=== PATIENT | male | born 1970 | race Caucasian/White ===

== ENCOUNTER 2019-10-21 13:00 | Outpatient (RCR) | payer MEDICAID, SELFPAY ==
[2019-10-07] MEDS: Normal Saline Flush 10 ML SYR IVP (10:38)
[2019-10-07 10:44] LABS: Abs Immature Grans 0.01 k/cumm (0.0-0.09); Absolute Basophil Count 0.03 k/cumm (0.0-0.2); Absolute Eosinophil Count 0.15 k/cumm (0.0-0.7); Absolute Lymphocyte Count 1.41 k/cumm (1.2-3.4); Absolute Monocyte Count 0.54 k/cumm (0.11-0.7); Absolute Neutrophil Count 3.28 k/cumm (1.2-6.7); Basophils % 0.6; Eosinophils % 2.8; HCT 40.5 % (40.0-50.0); HGB 13.5 g/dL (13.5-17.5); Immature Grans % 0.2 %; Mean Corp. HGB Concentration 33.3 g/dL (32.0-36.0); Mean Corpuscular Hemoglobin 29.4 pg (27.0-33.0); Mean Corpuscular Volume 88.2 fL (80-95); Mean Platelet Volume 8.6 fL (8.0-11.0); Neutrophils % 60.4; Platelet Count 177 x1000/uL (130-400); RBC 4.59 m/cumm (4.50-6.00); RBC Distribution Width 14.6 % (11.8-14.1); White Blood Cell Count 5.42 k/cumm (4.4-10.8)
[2019-10-07 10:56] LABS: ALT 38 U/L (16-63); AST 21 U/L (15-37); Albumin 3.6 g/dL (3.4-5.0); Alkaline Phosphatase 81 U/L (46-116); Anion Gap 5.9 mmol/L (3-11); BUN 14 mg/dL (7-18); Bilirubin, Total 0.6 mg/dL (0.2-1.0); CO2 33.1 mmol/L (21.0-32.0); CREATININE 0.78 mg/dL (0.70-1.30); Calcium 9.3 mg/dL (8.5-10.1); Chloride 103 mmol/L (98-107); Glucose 192 mg/dL (74-106); Sodium 142 mmol/L (136-145); Total Protein 6.7 g/dL (6.4-8.2)
[2019-10-21] MEDS: Heparin 500 UNITS/5 ML SYRINGE IV (13:40)
[2019-10-21] MEDS: Normal Saline Flush 10 ML SYR IVP (13:40)
[2019-10-21 13:57] LABS: Abs Immature Grans 0.01 k/cumm (0.0-0.09); Absolute Basophil Count 0.01 k/cumm (0.0-0.2); Absolute Eosinophil Count 0.15 k/cumm (0.0-0.7); Absolute Lymphocyte Count 1.53 k/cumm (1.2-3.4); Absolute Monocyte Count 0.35 k/cumm (0.11-0.7); Basophils % 0.2; Eosinophils % 2.9; HCT 38.9 % (40.0-50.0); HGB 13.1 g/dL (13.5-17.5); Immature Grans % 0.2 %; Lymphocytes % 29.7; Mean Corp. HGB Concentration 33.7 g/dL (32.0-36.0); Mean Corpuscular Hemoglobin 29.7 pg (27.0-33.0); Mean Corpuscular Volume 88.2 fL (80-95); Mean Platelet Volume 8.8 fL (8.0-11.0); Monocytes % 6.8; Neutrophils % 60.2; Platelet Count 202 x1000/uL (130-400); RBC 4.41 m/cumm (4.50-6.00); RBC Distribution Width 14.2 % (11.8-14.1); White Blood Cell Count 5.15 k/cumm (4.4-10.8)
[2019-10-21 14:08] LABS: ALT 45 U/L (16-63); AST 20 U/L (15-37); Albumin 3.6 g/dL (3.4-5.0); Alkaline Phosphatase 82 U/L (46-116); Anion Gap 8.1 mmol/L (3-11); BUN 12 mg/dL (7-18); Bilirubin, Total 0.5 mg/dL (0.2-1.0); CO2 30.9 mmol/L (21.0-32.0); CREATININE 0.81 mg/dL (0.70-1.30); Chloride 102 mmol/L (98-107); Glucose 265 mg/dL (74-106); Potassium 3.7 mmol/L (3.5-5.1); Sodium 141 mmol/L (136-145); Total Protein 6.6 g/dL (6.4-8.2)
[2019-10-24 10:39] LABS: CA 19-9 4 U/mL (<35)
== END 2019-10-21 23:59 | disposition home or self-care (01) ==
LOC: INF 13:00
PROVIDERS: PCP Family Medicine; Visit Provider Internal Medicine Hematology & Oncology
DX: C25.0 Malignant neoplasm of head of pancreas (principal); Z45.2 Encounter for adjustment and management of vascular access device
CPT/HCPCS: 36591; 80053; 85025; 86301

== ENCOUNTER 2019-11-07 01:37 | Outpatient (CLI) | payer MEDICAID, SELFPAY ==
--- NOTE | 2019-11-07 | DI.CT_ITS ---
EXAM: CT CHEST/ABD/PEL W CLINICAL HISTORY: PANCREATIC CA, C25.0. TECHNIQUE: Imaging Protocol: Axial computed tomography images with coronal and sagittal reformatted images were created and reviewed CONTRAST MATERIAL: Intravenous: Omnipaque 350 Contrast volume:100 mL Oral: Yes COMPARISON: CT CHEST WITH CONTRAST from 07/21/2019 FINDINGS: CHEST: Thyroid: Visualized portion unremarkable. Tracheobronchial tree: Patent where visualized. Mediastinum and Sulema: No dominant adenopathy or fluid collection. Pulmonary parenchyma: No consolidation or dominant measurable mass. No architectural distortion. Pleura: No effusion or pneumothorax. Lymph nodes: Within normal limits. Aorta: Thoracic portion non-dilated. Mild atherosclerosis. Heart: No cardiomegaly. Mild coronary artery calcification. No significant pericardial effusion. Bones: Mild degenerative changes. ABDOMEN: Liver: Normal density. No measurable mass. Gallbladder and biliary tract: No radiodense calculus or dilation. Pancreas: There is ill-defined decreased attenuation seen in the mid body of the pancreas and a mass cannot be excluded. There is atrophy of the distal body and tail of the pancreas. Spleen: Normal. Kidneys: Normal size, contour and axis. No radiodense stones or obstructive uropathy. There are tiny hypodensities seen within the kidneys bilaterally. They are too small for further characterization b ut likely reflect small cysts. Adrenal glands: No masses seen. Aorta: Abdominal portion non-dilated. Mild atherosclerosis. Lymph nodes: Within normal limits. PELVIS: Bladder: Symmetric distention, no gross wall thickening. Bowel: No obstruction or bowel wall thickening. No evidence of an acute appendicitis. Peritoneal cavity: Trace amount of pelvic ascites. Bones: Within normal limits. Reproductive organs: Within normal limits. IMPRESSION: 1. Ill-defined area of decreased attenuation in the mid body of the pancreas. Mass cannot be exclude d. Atrophy of the distal body and tail of the pancreas. 2. No evidence of metastatic disease. 3. No evidence of thoracic metastatic disease. DATA REPOSITORY: All CT scans at this facility are submitted to the National Radiology Data Registry (NRDR) Dose Index Registry (DIR) with the [employer] (ACR). RADIATION OPTIMIZATION: All CT scans at this facility use at least one of these dose optimization te chniques: automated exposure control; mA and/or kV adjustment per patient size (includes targeted exa ms where dose is matched to clinical indication); or iterative reconstruction.
[2019-11-07] MEDS: Omnipaque 350 MG/ML 50 ML BTL IJ (08:11)
[2019-11-07] MEDS: Omnipaque 350 MG/ML 100 ML BTL IV (09:34)
[2019-11-07] MEDS: Normal Saline Flush 10 ML SYR IVP (09:34)
[2019-11-07] MEDS: Breeza Beverage 473 ML BTL PO (09:48)
== END 2019-11-07 01:57 ==
PROVIDERS: PCP Family Medicine; Visit Provider Internal Medicine Hematology & Oncology
DX: C25.0 Malignant neoplasm of head of pancreas (principal); N28.1 Cyst of kidney, acquired; R18.8 Other ascites
CPT/HCPCS: 74177; 71260; J3490; Q9967

== ENCOUNTER 2019-11-10 10:26 | Emergency (ER) | payer MEDICAID, SELFPAY ==
[2019-11-10] VITALS (9 sets, daily range): BP systolic 112–134; BP diastolic 70–82; PULSE 71–87; RESP 12–20; TEMP 36.5–36.6; O2SAT 93–94
--- NOTE | 2019-11-10 10:45 | DI.CT_ITS ---
EXAM: CT CHEST PE CTA CLINICAL HISTORY: pancreatitic cancer, chest pain. TECHNIQUE: Imaging Protocol: Axial CT angiography was performed with multi-slice acquisition and mu lti-planar and/or 3D reconstructions. PE protocol. CONTRAST MATERIAL: Intravenous: Omnipaque 350 Contrast volume:69 milliliters COMPARISON: CT CHEST/ABD/PEL W from 11/07/2019 FINDINGS: Pulmonary Arteries: No evidence of filling defect to suggest pulmonary emboli. Tracheobronchial tree: Patent where visualized. Mediastinum and Sulema: No dominant adenopathy or fluid collection. Pulmonary parenchyma: No consolidation or measurable mass. Pleura: No effusion or pneumothorax. Heart: The heart is not dilated. No coronary artery calcifications are seen. Aorta: Thoracic aorta non-dilated. No dissection. Upper abdomen: Unremarkable. Bones: Normal. Tubes, Catheters, and Lines: A port is seen over the right upper chest. IMPRESSION: No evidence of pulmonary embolism or other acute abnormality.. DATA REPOSITORY: All CT scans at this facility are submitted to the National Radiology Data Registry (NRDR) Dose Index Registry (DIR) with the [employer] (ACR). RADIATION OPTIMIZATION: All CT scans at this facility use at least one of these dose optimization te chniques: automated exposure control; mA and/or kV adjustment per patient size (includes targeted exa ms where dose is matched to clinical indication); or iterative reconstruction.
--- NOTE | 2019-11-10 10:49 | ED.GENADUL_ITS ---
Discharge Plan Disposition Patient Disposition: HOME Condition: Stable Discharge Details Chief Complaint: Chest Pain Clinical Impression: Chest pain Primary Care Provider: Fabrizio Jessica ED Provider: Geo Benavides Home Meds and New Rx's Prescriptions: Continued (DME) ReliOn Prime Test Strips Strip See Rx Instructions .ROUTE .MEDSUPPLY Qty: 100 RF: 12 (DME) lancets [ReliOn Ultra Thin Plus Lancets] Misc See Rx Instructions .ROUTE .MEDSUPPLY Qty: 200 RF: 12 cholecalciferol (vitamin D3) 1,000 unit capsule 1,000 unit PO DAILY RF: 0 trazodone 100 mg tablet 100 mg PO DAILY PRNRF: 0 metformin 500 mg tablet extended release 24hr 1,000 mg PO DAILY RF: 0 prochlorperazine maleate [Compazine] 10 mg tablet 10 mg PO BID PRN (Reason: nausea and vomiting) Qty: 90 RF: 0 lisinopril-hydrochlorothiazide 20-25 mg tablet 1 tab PO DAILY Qty: 90 RF: 3 atorvastatin 40 mg tablet 40 mg PO DAILY Qty: 90 RF: 3 dapagliflozin 10 mg tablet 10 mg PO DAILY Qty: 90 RF: 3 Lantus Solostar U-100 Insulin 100 unit/mL (3 mL) insulin pen 25 unit SC BID Qty: 15 RF: 3 (DME) pen needle, diabetic [Lite Touch Insulin Pen [place]] 31 gauge x 3/16 needle See Rx Instructions .ROUTE .MEDSUPPLY Qty: 100 RF: 12 acetaminophen 325 mg Tablet 650 mg PO QID RF: 0 atenolol 25 mg Tablet 25 mg PO DAILY RF: 0 Novolin R Regular U-100 Insuln 100 unit/mL Solution 1 sliding scale dose SUBCUT USEASDIRECTD RF: 0 Culturelle 10 billion cell Capsule 1 cap PO DAILY RF: 0 insulin lispro 100 unit/mL Insulin Pen 1 unit SUBCUT DIRECTED RF: 0 Men Under 50 Multivitamin 8 mg iron- 200 mcg-600 mcg Tablet 1 tab PO DAILY RF: 0 turmeric-turmeric ext-pepper 500-3 mg Capsule 500 mg PO DAILY RF: 0 Discharge Instructions Instructions: Chest Pain (ED) Additional Instructions: follow up with your primary care provider within 1 week if you have worsening pain, difficulty breathing or fevers return to the [facility] for reevaluation Medical Decision Making 49 yo male with hx of DM, hld, pancreatic cancer who gets chemotherapy infusions comes in with chest pain. He states he has been having episodes of chest burning after infusions the past 2-3 times, this past Thursday night had some chest burning and had an episode last night lasting 20minutes. Denies radaition, vomit, fevers, shortness of breath and has not had pain since last night. He denies any prior cardiac history. He is hd stable, no murmurs, no jvd, no pitting edema of legs.Heart score is 2, will send troponin. Will obtain CTA to eval for PE given wells is moderate. No tearing back pain so doubt dissection imaging unremarkable, labs show lactate of 2.6 likely from dehydration as he states he hasn't been drinking fluids well and no infectious symptoms. Mild elevation in lfts which could be related to his underlying cancer just like his lipase. Will d/c given no pain here and have him f/u with pcp within a week, return precautions given Differential Diagnosis Differential Diagnosis: indigestion, nstemi, pe Imaging Data Radiologic Study: Attestation: I personally reviewed and interpreted this imaging study as follows: Imaging: CT Scan Radiologist's impression: no acute findings Lab Data Lab results reviewed: Yes I reviewed the patient's lab results. ECG Data Attestation: I personally reviewed and interpreted this ECG (s) as follows: Prior ECG tracings: not available for review Interpretation: sinus rhythm, rate of 88, pr 126, qtc 435, no acute st t wave i schemic findings HPI General Mode of arrival: EMS . Date/Time Provider Initiated Documentation: 11/10/19 10:38 . Limitations to Documentation: no limitations . Information obtained by: patient . History of Present Illness 49 year old M presents to the emergency department with the chief complaint of chest pain, described as mild, Quality is described as stabbing, and is localized to the chest. Patient reports no radiation. Patient started experiencing this day(s) (3) and it has been now resolved. No relieving factors improve symptom(s), No exacerbating factors reported . Patient notes no other symptoms.. Patient did receive the following treatments prior to arrival, none Related Data Home Medications Medication Instructions Recorded Confirmed cholecalciferol (vitamin D3) 25 1,000 unit PO DAILY 08/10/19 11/10/19 mcg (1,000 unit) capsule trazodone 100 mg tablet 100 mg PO DAILY PRN 08/10/19 11/10/19 blood sugar diagnostic #100 each 09/09/19 09/09/19 lancets #200 each 09/09/19 09/09/19 metformin 500 mg tablet,extended 1,000 mg PO DAILY tab 09/09/19 11/10/19 release 24hr atorvastatin 40 mg tablet 40 mg PO DAILY #90 tab 10/07/19 11/10/19 lisinopril 20 1 tab PO DAILY #90 tab 10/07/19 11/10/19 mg-hydrochlorothiazide 25 mg tablet prochlorperazine maleate 10 mg 10 mg PO BID PRN #90 tab 10/07/19 11/10/19 tablet Culturelle 1 cap PO DAILY 11/10/19 11/10/19 Men Under 50 Multivitamin 1 tab PO DAILY 11/10/19 11/10/19 Novolin R Regular U-100 Insuln 1 sliding scale dose SUBCUT 11/10/19 11/10/19 USEASDIRECTD acetaminophen 650 mg PO QID 11/10/19 11/10/19 atenolol 25 mg PO DAILY 11/10/19 11/10/19 dapagliflozin 10 mg tablet 10 mg PO DAILY #90 tab 11/10/19 11/10/19 insulin glargine 100 unit/mL (3 25 unit SC BID #15 ml 11/10/19 11/10/19 mL) subcutaneous pen insulin lispro 1 unit SUBCUT DIRECTED 11/10/19 11/10/19 pen needle, diabetic 31 gauge x #100 each 11/10/1912/04 turmeric-turmeric ext-pepper 500 mg PO DAILY 11/10/19 11/10/19 Previous Rx's Medication Instructions Recorded blood sugar diagnostic #100 each 09/09/19 lancets #200 each 09/09/19 atorvastatin 40 mg tablet 40 mg PO DAILY #90 tab 10/07/19 lisinopril 20 1 tab PO DAILY #90 tab 10/07/19 mg-hydrochlorothiazide 25 mg tablet prochlorperazine maleate 10 mg 10 mg PO BID PRN #90 tab 10/07/19 tablet dapagliflozin 10 mg tablet 10 mg PO DAILY #90 tab 11/10/19 insulin glargine 100 unit/mL (3 25 unit SC BID #15 ml 11/10/19 mL) subcutaneous pen pen needle, diabetic 31 gauge x #100 each 11/10/1912/04 Allergies Allergy/AdvReac Type Severity Reaction Status Date / Time adhesive tape Allergy Verified 11/10/19 10:45 oxycodone [From Percocet] Allergy Verified 11/10/19 10:45 General Stated Complaint: Chest Pain SEBASTIEN: 2 Review of Systems All systems reviewed & are unremarkable except as noted in HPI and below Constitutional Constitutional: Denies chills, Denies fever(s) and Denies weakness ENT Ears, Nose, Mouth, and Throat: Denies change in voice Cardiovascular Cardiovascular: Denies dyspnea Respiratory Respiratory: Denies cough and Denies dyspnea Gastrointestinal Gastrointestinal: Denies abdominal pain, Denies nausea and Denies vomiting Genitourinary Genitourinary: Denies dysuria Musculoskeletal Musculoskeletal: Denies joint swelling Integumentary/Breasts Skin/Breast: Denies rash Neurologic Neurologic: Denies weakness Psychiatric Psychiatric: Denies depression [facility] Medical History (Updated 11/10/19 @ 11:53 by Geo Benavides MD) Anxiety (Chronic) Asthma (Chronic) Benign prostatic hyperplasia with lower urinary tract symptoms (Acute) Cannabis abuse (Acute) Diabetes (Chronic) Diabetes mellitus due to underlying condition, uncontrolled (Chronic) Type II, worsened with pancreatic cancer Diabetes mellitus type 2 in obese (Ruled-out) Dysthymic disorder (Acute) Fatigue (Acute) Hyperlipidemia (Acute) Hypertension (Chronic) Insomnia (Acute) Intermittent explosive disorder (Acute) Pancreatic cancer (Acute) PTSD (post-traumatic stress disorder) (Acute) Surgical History History of appendectomy (Chronic ~2013) History of tonsillectomy (Chronic ~1978) History of vasectomy (Acute) S/P AAA repair (Acute ~2016) S/P hernia repair (Acute ~1991) Family History (Updated 09/07/19 @ 16:32 by Ketty Cordova RN) Mother Breast cancer BRCA Hypertension Sister BRCA1 positive Paternal Grandfather Cancer Father Heart attack Hypertension Maternal Grandmother Diabetes Stroke Paternal Grandmother Cancer Colorectal Diabetes Social History (Updated 08/25/19 @ 15:10 by Christi Mares LPN) Smoking/Tobacco Use Status: Former Tobacco Use Quit Date: 04/21/15 Tobacco: How many years used: 30 Alcohol Intake: former Drug use: Occasionally Substance use type: marijuana Details: No IV Drug Use Adopted: No Caregiver/Support person: No Foster care: No Household members: spouse Housing: house Number of Children: 1 Communication Needs: None Do you need help understanding health information?: Never current occupation: Unemployed Sexually active: No Do you think of yourself as: straight/heterosexual Current gender identity: male What is your relationship status?: How often do you talk on the phone with friends or family?: three or more times per week Panel score (0-1 are the most socially isolated patients): 2 What type of physical activity do you participate in: none Seatbelt use: always Drive intox or ride w/intox school bus driver/custodian: No Working smoke detector in home: Yes Fire extinguisher in home: Yes Carbon monox detector in home: Yes Do you feel safe at home: Yes Do you feel safe in your relationship?: Yes Exam Const General: no acute distress Orientation: alert HENMT Head: normal to inspection Ears: external ears normal General nose exam: external nose normal Mouth: moist mucous membranes Eyes General: appearance normal, both eyes and all related structures Neck Neck: normal visual inspection Chest Chest: normal inspection of the chest Resp Effort & Inspection: normal respiratory effort and able to speak in complete sentences Cardio Rate: regular rate Skin General skin exam: no rashes or lesions noted Neuro General: alert and oriented x3 Extrem General: normal to inspection Psych Mental Status: mental status grossly normal Course Vital Signs Vital signs: Vital Signs Temperature 36.5 C 11/10/19 10:38 Pulse 86 11/10/19 10:38 Respiratory Rate 13 11/10/19 10:38 Blood Pressure 134/82 11/10/19 10:38 Pulse Oximetry 94 L 11/10/19 10:38 Temperature 36.5 C 11/10/19 10:38 Temperature Source Temporal Artery Scan 11/10/19 10:38 Pulse 86 11/10/19 10:38 Respiratory Rate 13 11/10/19 10:38 Respiratory Effort Non-Labored 11/10/19 10:44 Blood Pressure 134/82 11/10/19 10:38 Blood Pressure Position Sitting 11/10/19 10:38 Pulse Oximetry 94 L 11/10/19 10:38 Oxygen Delivery Method Room Air 11/10/19 10:38 Oxygen Flow Rate 0 11/10/19 10:38 Lab/Test Results Lab/Test Results: Laboratory Tests Range/Units 11/10/19 10:40 APTT Cancelled
[2019-11-10 10:50] LABS: Abs Immature Grans 0.01 k/cumm (0.0-0.09); Absolute Basophil Count 0.01 k/cumm (0.0-0.2); Absolute Eosinophil Count 0.02 k/cumm (0.0-0.7); Absolute Lymphocyte Count 0.76 k/cumm (1.2-3.4); Absolute Neutrophil Count 4.04 k/cumm (1.2-6.7); Basophils % 0.2; Eosinophils % 0.4; HCT 39.3 % (40.0-50.0); HGB 13.3 g/dL (13.5-17.5); Immature Grans % 0.2 %; Lymphocytes % 14.5; Mean Corp. HGB Concentration 33.8 g/dL (32.0-36.0); Mean Corpuscular Volume 88.7 fL (80-95); Mean Platelet Volume 8.8 fL (8.0-11.0); Monocytes % 7.6; Neutrophils % 77.1; Platelet Count 200 x1000/uL (130-400); RBC 4.43 m/cumm (4.50-6.00); RBC Distribution Width 14.2 % (11.8-14.1); White Blood Cell Count 5.24 k/cumm (4.4-10.8)
[2019-11-10 10:52] LABS: BE (Venous) 7.1 mmol/L (-3-3); HCO3 (Venous) 32 mmol/L (22-28); O2 Sat (Venous) 75 % (70-80); TCO2 (Venous) 29 mmol/L (22-29); pCO2 (Venous) 52 mm/Hg (34-47); pO2 (Venous) 41 mm/Hg (28-44)
[2019-11-10 11:05] LABS: Lactate 2.6 mmol/L (0.6-1.4)
[2019-11-10] MEDS: Omnipaque 350 MG/ML 100 ML BTL IJ (11:11)
[2019-11-10] MEDS: Normal Saline Flush 10 ML SYR IVP (11:12)
[2019-11-10] MEDS: Normal Saline - Diluent 50 ML VIAL IV (11:12)
[2019-11-10 11:19] LABS: PTT Activated 22.3 sec (21.0-31.4); Prothrombin Time 9.9 sec (9.3-11.0)
[2019-11-10 11:22] LABS: ALT 104 U/L (16-63); AST 63 U/L (15-37); Albumin 3.6 g/dL (3.4-5.0); Alkaline Phosphatase 79 U/L (46-116); Anion Gap 8.3 mmol/L (3-11); BUN 18 mg/dL (7-18); Bilirubin, Total 1.2 mg/dL (0.2-1.0); CO2 31.7 mmol/L (21.0-32.0); CREATININE 0.93 mg/dL (0.70-1.30); Calcium 8.8 mg/dL (8.5-10.1); Chloride 99 mmol/L (98-107); Glucose 326 mg/dL (74-106); Lipase 663 U/L (73-393); Potassium 3.9 mmol/L (3.5-5.1); Sodium 139 mmol/L (136-145); Total Protein 6.7 g/dL (6.4-8.2)
[2019-11-10 11:25] LABS: Troponin I < 0.05 ng/Ml (<0.06)
[2019-11-10] MEDS: Normal Saline 1,000 ML 1000 ML IV (11:33)
== END 2019-11-10 12:03 | disposition home or self-care (01) ==
PROVIDERS: Emergency Provider Emergency Medicine; PCP Family Medicine
DX: R07.89 Other chest pain (principal); E86.0 Dehydration; C25.9 Malignant neoplasm of pancreas, unspecified; Z79.899 Other long term (current) drug therapy; I10 Essential (primary) hypertension; E11.8 Type 2 diabetes mellitus with unspecified complications; Z79.4 Long term (current) use of insulin
CPT/HCPCS: 36416; 71275; 80053; 82805; 82962; 83690; 93005; 96360; 99285; 83605; 84484; 85025; 85610; 85730; 93010; 99284; J3490

== ENCOUNTER 2019-11-18 04:31 | Outpatient (RCR) | payer MEDICAID, SELFPAY ==
[2019-11-04 10:56] LABS: Abs Immature Grans 0.01 k/cumm (0.0-0.09); Absolute Basophil Count 0.01 k/cumm (0.0-0.2); Absolute Eosinophil Count 0.13 k/cumm (0.0-0.7); Absolute Lymphocyte Count 1.34 k/cumm (1.2-3.4); Absolute Monocyte Count 0.56 k/cumm (0.11-0.7); Absolute Neutrophil Count 3.32 k/cumm (1.2-6.7); Basophils % 0.2; Eosinophils % 2.4; HCT 38.9 % (40.0-50.0); HGB 13.3 g/dL (13.5-17.5); Immature Grans % 0.2 %; Mean Corp. HGB Concentration 34.2 g/dL (32.0-36.0); Mean Corpuscular Hemoglobin 29.8 pg (27.0-33.0); Mean Corpuscular Volume 87.2 fL (80-95); Mean Platelet Volume 8.9 fL (8.0-11.0); Monocytes % 10.4; Neutrophils % 61.8; Platelet Count 229 x1000/uL (130-400); RBC 4.46 m/cumm (4.50-6.00); White Blood Cell Count 5.37 k/cumm (4.4-10.8)
[2019-11-04 11:06] LABS: ALT 38 U/L (16-63); AST 22 U/L (15-37); Albumin 3.6 g/dL (3.4-5.0); Alkaline Phosphatase 86 U/L (46-116); Anion Gap 7.3 mmol/L (3-11); BUN 11 mg/dL (7-18); Bilirubin, Total 0.4 mg/dL (0.2-1.0); CO2 29.7 mmol/L (21.0-32.0); CREATININE 0.75 mg/dL (0.70-1.30); Calcium 9.2 mg/dL (8.5-10.1); Chloride 103 mmol/L (98-107); Glucose 210 mg/dL (74-106); Potassium 3.8 mmol/L (3.5-5.1); Sodium 140 mmol/L (136-145); Total Protein 6.8 g/dL (6.4-8.2)
[2019-11-04] MEDS: Normal Saline Flush 10 ML SYR IVP (12:40)
[2019-11-04] MEDS: Heparin 500 UNITS/5 ML SYRINGE IV (12:41)
[2019-11-07 11:49] LABS: CA 19-9 5 U/mL (<35)
[2019-11-18] MEDS: Heparin 500 UNITS/5 ML SYRINGE IV (08:38)
[2019-11-18] MEDS: Normal Saline Flush 10 ML SYR IVP (08:38)
[2019-11-18 08:44] LABS: Abs Immature Grans 0.02 k/cumm (0.0-0.09); Absolute Basophil Count 0.02 k/cumm (0.0-0.2); Absolute Eosinophil Count 0.14 k/cumm (0.0-0.7); Absolute Lymphocyte Count 1.65 k/cumm (1.2-3.4); Absolute Monocyte Count 0.58 k/cumm (0.11-0.7); Absolute Neutrophil Count 2.62 k/cumm (1.2-6.7); Basophils % 0.4; Eosinophils % 2.8; HCT 40.4 % (40.0-50.0); HGB 13.9 g/dL (13.5-17.5); Immature Grans % 0.4 %; Lymphocytes % 32.8; Mean Corp. HGB Concentration 34.4 g/dL (32.0-36.0); Mean Corpuscular Hemoglobin 30.2 pg (27.0-33.0); Mean Corpuscular Volume 87.6 fL (80-95); Mean Platelet Volume 8.8 fL (8.0-11.0); Monocytes % 11.5; Neutrophils % 52.1; Platelet Count 196 x1000/uL (130-400); RBC 4.61 m/cumm (4.50-6.00); White Blood Cell Count 5.03 k/cumm (4.4-10.8)
[2019-11-18 09:02] LABS: ALT 43 U/L (16-63); AST 21 U/L (15-37); Albumin 3.8 g/dL (3.4-5.0); Alkaline Phosphatase 96 U/L (46-116); Anion Gap 6.6 mmol/L (3-11); BUN 13 mg/dL (7-18); Bilirubin, Total 0.3 mg/dL (0.2-1.0); CO2 31.4 mmol/L (21.0-32.0); CREATININE 0.89 mg/dL (0.70-1.30); Calcium 9.1 mg/dL (8.5-10.1); Chloride 103 mmol/L (98-107); Glucose 206 mg/dL (74-106); Potassium 3.8 mmol/L (3.5-5.1); Sodium 141 mmol/L (136-145); Total Protein 7.2 g/dL (6.4-8.2)
[2019-11-21 11:48] LABS: CA 19-9 3 U/mL (<35)
== END 2019-11-19 23:59 | disposition home or self-care (01) ==
LOC: INF 04:31
PROVIDERS: PCP Family Medicine; Visit Provider Internal Medicine Hematology & Oncology
DX: C25.0 Malignant neoplasm of head of pancreas (principal); Z45.2 Encounter for adjustment and management of vascular access device
CPT/HCPCS: 36591; 80053; 85025; 86301

== ENCOUNTER 2019-12-19 08:00 | Outpatient (RCR) | payer MEDICAID, SELFPAY ==
[2019-12-02] MEDS: Heparin 500 UNITS/5 ML SYRINGE IV (15:07)
[2019-12-02] MEDS: Normal Saline Flush 10 ML SYR IVP (15:07)
[2019-12-02 15:11] LABS: Abs Immature Grans 0.02 k/cumm (0.0-0.09); Absolute Basophil Count 0.04 k/cumm (0.0-0.2); Absolute Eosinophil Count 0.23 k/cumm (0.0-0.7); Absolute Lymphocyte Count 2.35 k/cumm (1.2-3.4); Absolute Monocyte Count 0.77 k/cumm (0.11-0.7); Absolute Neutrophil Count 3.97 k/cumm (1.2-6.7); Basophils % 0.5; Eosinophils % 3.1; HCT 41.2 % (40.0-50.0); HGB 14.1 g/dL (13.5-17.5); Immature Grans % 0.3 %; Lymphocytes % 31.8; Mean Corp. HGB Concentration 34.2 g/dL (32.0-36.0); Mean Corpuscular Hemoglobin 30.7 pg (27.0-33.0); Mean Corpuscular Volume 89.6 fL (80-95); Mean Platelet Volume 8.8 fL (8.0-11.0); Monocytes % 10.4; Neutrophils % 53.9; Platelet Count 245 x1000/uL (130-400); RBC Distribution Width 14.1 % (11.8-14.1); White Blood Cell Count 7.38 k/cumm (4.4-10.8)
[2019-12-02 15:25] LABS: ALT 35 U/L (16-63); AST 19 U/L (15-37); Albumin 3.9 g/dL (3.4-5.0); Alkaline Phosphatase 89 U/L (46-116); Anion Gap 6.5 mmol/L (3-11); BUN 11 mg/dL (7-18); Bilirubin, Total 0.7 mg/dL (0.2-1.0); CO2 32.5 mmol/L (21.0-32.0); CREATININE 0.89 mg/dL (0.70-1.30); Calcium 9.2 mg/dL (8.5-10.1); Chloride 104 mmol/L (98-107); Glucose 159 mg/dL (74-106); Potassium 3.7 mmol/L (3.5-5.1); Sodium 143 mmol/L (136-145); Total Protein 7.3 g/dL (6.4-8.2)
[2019-12-05 09:15] LABS: CA 19-9 2 U/mL (<35)
[2019-12-19 08:46] LABS: Absolute Basophil Count 0.01 k/cumm (0.0-0.2); Absolute Eosinophil Count 0.18 k/cumm (0.0-0.7); Absolute Monocyte Count 0.48 k/cumm (0.11-0.7); Absolute Neutrophil Count 4.06 k/cumm (1.2-6.7); Basophils % 0.2; Eosinophils % 2.8; HCT 40.3 % (40.0-50.0); HGB 13.5 g/dL (13.5-17.5); Lymphocytes % 25.3; Mean Corp. HGB Concentration 33.5 g/dL (32.0-36.0); Mean Corpuscular Hemoglobin 30.2 pg (27.0-33.0); Mean Corpuscular Volume 90.2 fL (80-95); Mean Platelet Volume 8.8 fL (8.0-11.0); Monocytes % 7.6; Neutrophils % 64.1; Platelet Count 210 x1000/uL (130-400); RBC 4.47 m/cumm (4.50-6.00); RBC Distribution Width 13.4 % (11.8-14.1); White Blood Cell Count 6.33 k/cumm (4.4-10.8)
[2019-12-19] MEDS: Normal Saline Flush 10 ML SYR IVP (08:50)
[2019-12-19] MEDS: Heparin 500 UNITS/5 ML SYRINGE IV (08:51)
[2019-12-19 09:01] LABS: ALT 37 U/L (16-63); AST 21 U/L (15-37); Albumin 3.8 g/dL (3.4-5.0); Alkaline Phosphatase 99 U/L (46-116); Anion Gap 8.4 mmol/L (3-11); BUN 13 mg/dL (7-18); Bilirubin, Total 0.6 mg/dL (0.2-1.0); CO2 29.6 mmol/L (21.0-32.0); CREATININE 0.83 mg/dL (0.70-1.30); Calcium 8.9 mg/dL (8.5-10.1); Chloride 105 mmol/L (98-107); Glucose 168 mg/dL (74-106); Potassium 3.6 mmol/L (3.5-5.1); Sodium 143 mmol/L (136-145); Total Protein 7.1 g/dL (6.4-8.2)
== END 2019-12-20 23:59 | disposition home or self-care (01) ==
LOC: INF 08:00
PROVIDERS: PCP Family Medicine; Visit Provider Internal Medicine Hematology & Oncology
DX: C25.0 Malignant neoplasm of head of pancreas (principal); Z45.2 Encounter for adjustment and management of vascular access device
CPT/HCPCS: 36591; 80053; 85025; 86301

== ENCOUNTER 2020-01-16 09:30 | Outpatient (RCR) | payer MEDICAID, SELFPAY ==
[2020-01-06 09:12] LABS: Absolute Basophil Count 0.01 k/cumm (0.0-0.2); Absolute Lymphocyte Count 1.36 k/cumm (1.2-3.4); Absolute Monocyte Count 0.46 k/cumm (0.11-0.7); Absolute Neutrophil Count 1.73 k/cumm (1.2-6.7); Basophils % 0.3; Eosinophils % 2.7; HCT 40.4 % (40.0-50.0); HGB 13.3 g/dL (13.5-17.5); Lymphocytes % 37.2; Mean Corp. HGB Concentration 32.9 g/dL (32.0-36.0); Mean Corpuscular Hemoglobin 30.2 pg (27.0-33.0); Mean Corpuscular Volume 91.8 fL (80-95); Mean Platelet Volume 9.1 fL (8.0-11.0); Monocytes % 12.6; Neutrophils % 47.2; Platelet Count 208 x1000/uL (130-400); RBC Distribution Width 14.1 % (11.8-14.1); White Blood Cell Count 3.66 k/cumm (4.4-10.8)
[2020-01-06] MEDS: Normal Saline Flush 10 ML SYR IVP (09:27)
[2020-01-06] MEDS: Heparin 500 UNITS/5 ML SYRINGE IV (09:27)
[2020-01-06 09:28] LABS: ALT 42 U/L (16-63); AST 18 U/L (15-37); Albumin 3.8 g/dL (3.4-5.0); Alkaline Phosphatase 95 U/L (46-116); Anion Gap 7.6 mmol/L (3-11); BUN 12 mg/dL (7-18); Bilirubin, Total 0.6 mg/dL (0.2-1.0); CO2 30.4 mmol/L (21.0-32.0); CREATININE 0.85 mg/dL (0.70-1.30); Calcium 9.3 mg/dL (8.5-10.1); Chloride 102 mmol/L (98-107); Glucose 240 mg/dL (74-106); Sodium 140 mmol/L (136-145); Total Protein 7.2 g/dL (6.4-8.2)
[2020-01-09 11:03] LABS: CA 19-9 5 U/mL (<35)
[2020-01-16] MEDS: Heparin 500 UNITS/5 ML SYRINGE IV (09:25)
[2020-01-16] MEDS: Normal Saline Flush 10 ML SYR IVP (09:25)
[2020-01-16 09:45] LABS: Abs Immature Grans 0.02 k/cumm (0.0-0.09); Absolute Basophil Count 0.01 k/cumm (0.0-0.2); Absolute Eosinophil Count 0.14 k/cumm (0.0-0.7); Absolute Lymphocyte Count 1.63 k/cumm (1.2-3.4); Absolute Neutrophil Count 4.78 k/cumm (1.2-6.7); Basophils % 0.1; HCT 41.8 % (40.0-50.0); HGB 13.8 g/dL (13.5-17.5); Immature Grans % 0.3 %; Mean Corpuscular Hemoglobin 30.3 pg (27.0-33.0); Mean Corpuscular Volume 91.9 fL (80-95); Monocytes % 7.1; Neutrophils % 67.5; Platelet Count 230 x1000/uL (130-400); RBC 4.55 m/cumm (4.50-6.00); RBC Distribution Width 13.8 % (11.8-14.1); White Blood Cell Count 7.08 k/cumm (4.4-10.8)
[2020-01-16 10:02] LABS: ALT 34 U/L (16-63); AST 24 U/L (15-37); Albumin 3.9 g/dL (3.4-5.0); Alkaline Phosphatase 97 U/L (46-116); Anion Gap 8.6 mmol/L (3-11); BUN 13 mg/dL (7-18); Bilirubin, Total 0.9 mg/dL (0.2-1.0); CO2 31.4 mmol/L (21.0-32.0); CREATININE 0.81 mg/dL (0.70-1.30); Calcium 9.6 mg/dL (8.5-10.1); Chloride 99 mmol/L (98-107); Glucose 210 mg/dL (74-106); Potassium 3.8 mmol/L (3.5-5.1); Sodium 139 mmol/L (136-145); Total Protein 7.4 g/dL (6.4-8.2)
[2020-01-18 10:32] LABS: CA 19-9 7 U/mL (<35)
== END 2020-01-19 23:59 | disposition home or self-care (01) ==
LOC: INF 09:30
PROVIDERS: PCP Family Medicine; Visit Provider Internal Medicine Hematology & Oncology
DX: C25.0 Malignant neoplasm of head of pancreas (principal); Z45.2 Encounter for adjustment and management of vascular access device
CPT/HCPCS: 36591; 80053; 85025; 86301

== ENCOUNTER 2020-02-17 02:52 | Outpatient (RCR) | payer MEDICAID, SELFPAY ==
[2020-01-27 12:35] LABS: Abs Immature Grans 0.01 k/cumm (0.0-0.09); Absolute Basophil Count 0.01 k/cumm (0.0-0.2); Absolute Eosinophil Count 0.13 k/cumm (0.0-0.7); Absolute Lymphocyte Count 0.92 k/cumm (1.2-3.4); Absolute Monocyte Count 0.61 k/cumm (0.11-0.7); Basophils % 0.1; Eosinophils % 1.5; HCT 40.9 % (40.0-50.0); HGB 13.9 g/dL (13.5-17.5); Immature Grans % 0.1 %; Lymphocytes % 10.7; Mean Corpuscular Volume 91.1 fL (80-95); Mean Platelet Volume 8.6 fL (8.0-11.0); Monocytes % 7.1; Neutrophils % 80.5; Platelet Count 211 x1000/uL (130-400); RBC 4.49 m/cumm (4.50-6.00); RBC Distribution Width 13.4 % (11.8-14.1); White Blood Cell Count 8.58 k/cumm (4.4-10.8)
[2020-01-27] MEDS: Normal Saline Flush 10 ML SYR IVP (12:45)
[2020-01-27] MEDS: Heparin 500 UNITS/5 ML SYRINGE IV (12:46)
[2020-01-27 12:56] LABS: ALT 32 U/L (16-63); AST 20 U/L (15-37); Albumin 4.1 g/dL (3.4-5.0); Alkaline Phosphatase 86 U/L (46-116); Anion Gap 7.9 mmol/L (3-11); BUN 15 mg/dL (7-18); Bilirubin, Total 1.3 mg/dL (0.2-1.0); CO2 30.1 mmol/L (21.0-32.0); CREATININE 0.87 mg/dL (0.70-1.30); Calcium 9.7 mg/dL (8.5-10.1); Chloride 98 mmol/L (98-107); Glucose 215 mg/dL (74-106); Potassium 3.5 mmol/L (3.5-5.1); Sodium 136 mmol/L (136-145); Total Protein 7.5 g/dL (6.4-8.2)
[2020-02-03] MEDS: Heparin 500 UNITS/5 ML SYRINGE IV (12:30)
[2020-02-03] MEDS: Normal Saline Flush 10 ML SYR IVP (12:30)
[2020-02-03 12:51] LABS: Abs Immature Grans 0.01 k/cumm (0.0-0.09); Absolute Basophil Count 0.01 k/cumm (0.0-0.2); Absolute Eosinophil Count 0.15 k/cumm (0.0-0.7); Absolute Lymphocyte Count 0.73 k/cumm (1.2-3.4); Absolute Monocyte Count 0.58 k/cumm (0.11-0.7); Absolute Neutrophil Count 4.27 k/cumm (1.2-6.7); Basophils % 0.2; Eosinophils % 2.6; HCT 40.5 % (40.0-50.0); HGB 13.6 g/dL (13.5-17.5); Immature Grans % 0.2 %; Lymphocytes % 12.7; Mean Corp. HGB Concentration 33.6 g/dL (32.0-36.0); Mean Corpuscular Hemoglobin 30.4 pg (27.0-33.0); Mean Corpuscular Volume 90.6 fL (80-95); Mean Platelet Volume 9.2 fL (8.0-11.0); Monocytes % 10.1; Neutrophils % 74.2; Platelet Count 214 x1000/uL (130-400); RBC 4.47 m/cumm (4.50-6.00); RBC Distribution Width 13.8 % (11.8-14.1); White Blood Cell Count 5.75 k/cumm (4.4-10.8)
[2020-02-03 13:10] LABS: ALT 27 U/L (16-63); AST 15 U/L (15-37); Alkaline Phosphatase 85 U/L (46-116); Anion Gap 6.9 mmol/L (3-11); BUN 16 mg/dL (7-18); Bilirubin, Total 0.8 mg/dL (0.2-1.0); CO2 31.1 mmol/L (21.0-32.0); CREATININE 0.87 mg/dL (0.70-1.30); Calcium 9.6 mg/dL (8.5-10.1); Chloride 99 mmol/L (98-107); Glucose 213 mg/dL (74-106); Potassium 3.8 mmol/L (3.5-5.1); Sodium 137 mmol/L (136-145); Total Protein 7.5 g/dL (6.4-8.2)
[2020-02-06 11:10] LABS: CA 19-9 3 U/mL (<35)
[2020-02-10] MEDS: Normal Saline Flush 10 ML SYR IVP (10:45)
[2020-02-10] MEDS: Heparin 500 UNITS/5 ML SYRINGE IV (10:45)
[2020-02-10 11:02] LABS: Abs Immature Grans 0.01 k/cumm (0.0-0.09); Absolute Basophil Count 0.01 k/cumm (0.0-0.2); Absolute Eosinophil Count 0.11 k/cumm (0.0-0.7); Absolute Lymphocyte Count 0.48 k/cumm (1.2-3.4); Absolute Monocyte Count 0.55 k/cumm (0.11-0.7); Absolute Neutrophil Count 5.58 k/cumm (1.2-6.7); Basophils % 0.1; Eosinophils % 1.6; HCT 40.1 % (40.0-50.0); HGB 13.5 g/dL (13.5-17.5); Immature Grans % 0.1 %; Lymphocytes % 7.1; Mean Corp. HGB Concentration 33.7 g/dL (32.0-36.0); Mean Corpuscular Hemoglobin 30.6 pg (27.0-33.0); Mean Corpuscular Volume 90.9 fL (80-95); Mean Platelet Volume 8.7 fL (8.0-11.0); Monocytes % 8.2; Neutrophils % 82.9; Platelet Count 185 x1000/uL (130-400); RBC 4.41 m/cumm (4.50-6.00); RBC Distribution Width 14.3 % (11.8-14.1); White Blood Cell Count 6.74 k/cumm (4.4-10.8)
[2020-02-10 11:13] LABS: ALT 34 U/L (16-63); AST 18 U/L (15-37); Albumin 4.1 g/dL (3.4-5.0); Alkaline Phosphatase 85 U/L (46-116); Anion Gap 7.3 mmol/L (3-11); BUN 16 mg/dL (7-18); Bilirubin, Total 1.1 mg/dL (0.2-1.0); CO2 32.7 mmol/L (21.0-32.0); CREATININE 0.86 mg/dL (0.70-1.30); Calcium 9.6 mg/dL (8.5-10.1); Chloride 97 mmol/L (98-107); Glucose 220 mg/dL (74-106); Potassium 3.9 mmol/L (3.5-5.1); Sodium 137 mmol/L (136-145); Total Protein 7.5 g/dL (6.4-8.2)
[2020-02-13 12:04] LABS: CA 19-9 3 U/mL (<35)
[2020-02-17 11:01] LABS: Abs Immature Grans 0.02 k/cumm (0.0-0.09); Absolute Eosinophil Count 0.08 k/cumm (0.0-0.7); Absolute Lymphocyte Count 0.34 k/cumm (1.2-3.4); Eosinophils % 0.7; HCT 40.3 % (40.0-50.0); HGB 13.5 g/dL (13.5-17.5); Immature Grans % 0.2 %; Lymphocytes % 2.9; Mean Corp. HGB Concentration 33.5 g/dL (32.0-36.0); Mean Corpuscular Hemoglobin 30.9 pg (27.0-33.0); Mean Corpuscular Volume 92.2 fL (80-95); Monocytes % 7.6; Neutrophils % 88.6; Platelet Count 188 x1000/uL (130-400); RBC 4.37 m/cumm (4.50-6.00); RBC Distribution Width 14.7 % (11.8-14.1); White Blood Cell Count 11.78 k/cumm (4.4-10.8)
[2020-02-17 11:03] LABS: Absolute Neutrophil Count 10.44 k/cumm (1.2-6.7)
[2020-02-17 11:13] LABS: ALT 36 U/L (16-63); AST 19 U/L (15-37); Albumin 4.1 g/dL (3.4-5.0); Alkaline Phosphatase 87 U/L (46-116); Anion Gap 4.4 mmol/L (3-11); BUN 16 mg/dL (7-18); Bilirubin, Total 1.2 mg/dL (0.2-1.0); CO2 31.6 mmol/L (21.0-32.0); CREATININE 0.92 mg/dL (0.70-1.30); Calcium 9.6 mg/dL (8.5-10.1); Chloride 100 mmol/L (98-107); Glucose 243 mg/dL (74-106); Potassium 3.7 mmol/L (3.5-5.1); Sodium 136 mmol/L (136-145); Total Protein 7.4 g/dL (6.4-8.2)
[2020-02-17] MEDS: Normal Saline Flush 10 ML SYR IVP (11:27)
[2020-02-17] MEDS: Heparin 500 UNITS/5 ML SYRINGE IV (11:27)
[2020-02-20 10:52] LABS: CA 19-9 <2 U/mL (<35)
== END 2020-02-19 23:59 | disposition home or self-care (01) ==
LOC: INF 02:52
PROVIDERS: PCP Family Medicine; Visit Provider Internal Medicine Hematology & Oncology
DX: C25.0 Malignant neoplasm of head of pancreas (principal); Z45.2 Encounter for adjustment and management of vascular access device
CPT/HCPCS: 36591; 80053; 85025; 86301

== ENCOUNTER 2020-02-24 04:51 | Outpatient (RCR) | payer MEDICAID, SELFPAY ==
[2020-02-24] MEDS: Normal Saline Flush 10 ML SYR 30 ML IVP (12:13)
[2020-02-24 12:28] LABS: Abs Immature Grans 0.01 k/cumm (0.0-0.09); Absolute Basophil Count 0.01 k/cumm (0.0-0.2); Absolute Eosinophil Count 0.04 k/cumm (0.0-0.7); Absolute Lymphocyte Count 0.25 k/cumm (1.2-3.4); Absolute Monocyte Count 0.78 k/cumm (0.11-0.7); Absolute Neutrophil Count 7.62 k/cumm (1.2-6.7); Basophils % 0.1; Eosinophils % 0.5; HCT 41.8 % (40.0-50.0); HGB 14.3 g/dL (13.5-17.5); Immature Grans % 0.1 %; Lymphocytes % 2.9; Mean Corp. HGB Concentration 34.2 g/dL (32.0-36.0); Mean Corpuscular Hemoglobin 31.1 pg (27.0-33.0); Mean Corpuscular Volume 90.9 fL (80-95); Mean Platelet Volume 9.2 fL (8.0-11.0); Neutrophils % 87.4; Platelet Count 210 x1000/uL (130-400); RBC Distribution Width 14.6 % (11.8-14.1); White Blood Cell Count 8.71 k/cumm (4.4-10.8)
[2020-02-24 12:48] LABS: ALT 38 U/L (16-63); AST 21 U/L (15-37); Albumin 4.3 g/dL (3.4-5.0); Alkaline Phosphatase 90 U/L (46-116); Anion Gap 5.1 mmol/L (3-11); BUN 14 mg/dL (7-18); Bilirubin, Total 1.5 mg/dL (0.2-1.0); CO2 32.9 mmol/L (21.0-32.0); CREATININE 1.12 mg/dL (0.70-1.30); Calcium 9.8 mg/dL (8.5-10.1); Chloride 99 mmol/L (98-107); Glucose 278 mg/dL (74-106); Potassium 3.7 mmol/L (3.5-5.1); Sodium 137 mmol/L (136-145); Total Protein 7.7 g/dL (6.4-8.2)
[2020-02-27 12:32] LABS: CA 19-9 6 U/mL (<35)
== END 2020-03-20 23:59 | disposition home or self-care (01) ==
LOC: INF 04:51
PROVIDERS: PCP Family Medicine; Visit Provider Internal Medicine Hematology & Oncology
DX: C25.0 Malignant neoplasm of head of pancreas (principal); Z45.2 Encounter for adjustment and management of vascular access device
CPT/HCPCS: 36591; 80053; 85025; 86301

== ENCOUNTER 2020-05-14 20:33 | Outpatient (REF) | payer BC, SELFPAY ==
[2020-05-14 22:00] LABS: Bilirubin Negative (Negative); Blood Trace-intact (Negative); Clarity Clear (Clear); Glucose Negative (Negative); Ketones Negative (Negative); Leukocyte Esterase Negative (Negative); Nitrite Negative (Negative); Urobilinogen 0.2 EU/dL (Up TO 0.2)
[2020-05-14 22:37] LABS: Bacteria Negative HPF (Negative); C & S Indicated? No; Casts Negative LPF (Negative); Crystals Negative HPF (Negative); Epithelial Cells Negative HPF (Negative); Mucus Negative (Negative); Other Cells Negative (Negative); RBC 0-2 HPF (0-2); WBC 0-2 HPF (0-5)
== END 2020-05-14 20:53 ==
LOC: LBN 20:33
PROVIDERS: PCP Family Medicine; Visit Provider Family Medicine
DX: R10.9 Unspecified abdominal pain (principal); C25.1 Malignant neoplasm of body of pancreas; E11.9 Type 2 diabetes mellitus without complications
CPT/HCPCS: 81003; 81015

== ENCOUNTER 2020-08-24 04:29 | Outpatient (CLI) | payer BC, SELFPAY ==
--- NOTE | 2020-08-24 | DI.CT_ITS ---
EXAM: CT CHEST/ABD/PEL W CLINICAL HISTORY: PANCREATIC CA,C25.0,S/P CHEMO AND TREATMENT,SURGERY,SURVEILLANCE,RESTAGING. TECHNIQUE: Imaging Protocol: Axial computed tomography images with coronal and sagittal reformatted images were created and reviewed CONTRAST MATERIAL: Intravenous: Omnipaque 350 Contrast volume:100 Oral: yes COMPARISON: CT CT CHEST PE CTA from 11/10/[address] CHEST ABDOMEN PELVIS W CONTRAST (GENERIC) from 03/27/2020 FINDINGS: CHEST: Thyroid: Normal Tracheobronchial tree: Patent where visualized. Mediastinum and Sulema: No dominant adenopathy or fluid collection. Pulmonary parenchyma: No consolidation or dominant measurable mass. Pleura: No effusion or pneumothorax. Lymph nodes: Within normal limits. Aorta: Thoracic portion non-dilated. Pulmonary arteries: Well opacified with contrast. No emboli. Heart: Normal in size. Mild coronary artery calcifications. Bones: Right chest port with tip in SVC. ABDOMEN: Liver: Normal density. 10 millimeter low-density lesion anteriorly in the left lobe of the liver and 2.1 by 0.8 centimeter lesion inferomedial right lobe. Both lesions were not present on the previous exam. There are multiple surgical clips seen at the level of the celiac axis as well as near the pancreatic head and body. Gallbladder and biliary tract: Status post cholecystectomy since the previous exam. Pancreas: A 15 millimeter cystic appearing lesion is seen emanating from the superior portion of the pancreatic head which is not seen previously. The previously noted mass is no longer present. The body and tail of the pancreas has been resected. Spleen: Status post splenectomy. Kidneys: Normal size, contour and axis. No radiodense stones or obstructive uropathy. No masses seen. Tiny cysts. Scarring at the lower pole of the left kidney. Adrenal glands: No masses seen. Aorta: Abdominal portion non-dilated. Atherosclerotic changes of the aorta and iliac arteries. Lymph nodes: Within normal limits. Soft tissues: Upper anterior abdominal wall surgical scar. No hematoma or seroma. PELVIS: Bladder: Symmetric distention, mild wall thickening. Bowel: No obstruction or bowel wall thickening. Status post appendectomy. Peritoneal cavity: No ascites, collection or mesenteric inflammatory response. Bones: No lytic or blastic lesions. Degenerative changes of the hips and lower lumbar spine. Reproductive organs: Within normal limits. IMPRESSION: 1. Status post partial pancreatic resection. A 15 millimeter cystic area superior to the head of th e pancreas could be postsurgical. Patient is also status post cholecystectomy and splenectomy. 2. Two new low-density lesions are seen in the liver, suspicious for metastases. 3. There is no evidence of metastatic disease in the chest. RADIATION DOSE DELIVERED: 1,877.02mGy.cm Total DLP DATA REPOSITORY: All CT scans at this facility are submitted to the National Radiology Data Registry (NRDR) Dose Index Registry (DIR) with the [employer] (ACR). RADIATION OPTIMIZATION: All CT scans at this facility use at least one of these dose optimization te chniques: automated exposure control; mA and/or kV adjustment per patient size (includes targeted exa ms where dose is matched to clinical indication); or iterative reconstruction.
[2020-08-24 10:09] LABS: Abs Immature Grans 0.02 10^3/uL (0.0-0.06); Absolute Basophil Count 0.05 10^3/uL (0.0-0.2); Absolute Eosinophil Count 0.35 10^3/uL (0.0-0.7); Absolute Lymphocyte Count 1.23 10^3/uL (1.2-3.4); Absolute Monocyte Count 0.96 10^3/uL (0.1-0.8); Absolute Neutrophil Count 8.15 10^3/uL (1.2-6.7); Basophils % 0.5; Eosinophils % 3.3; HCT 42.5 % (40.0-50.0); Immature Grans % 0.2; Lymphocytes % 11.4; MCH 28.3 pg (27.0-33.0); MCHC 32.9 % (32.0-36.0); MCV 85.9 fL (80-95); MPV 9.3 fL (8.0-11.0); Monocytes % 8.9; Neutrophils % 75.7; Nucleated RBC 0 %; Platelet Count 370 10^3/uL (130-400); RBC 4.95 10^6/uL (4.36-5.78); RDW 15.7 % (11.8-14.1); RDW-SD 49.1 fL; WBC 10.76 10^3/uL (4.4-10.8)
[2020-08-24 10:23] LABS: ALT 51 U/L (16-63); AST 24 U/L (15-37); Albumin 3.8 g/dL (3.4-5.0); Alkaline Phosphatase 116 U/L (46-116); Anion Gap 4.2 mmol/L (3-11); BUN 14 mg/dL (7-18); Bilirubin, Total 0.9 mg/dL (0.2-1.0); CO2 31.8 mmol/L (21.0-32.0); CREATININE 0.82 mg/dL (0.70-1.30); Calcium 9.2 mg/dL (8.5-10.1); Chloride 102 mmol/L (98-107); Glucose 176 mg/dL (74-106); Potassium 3.7 mmol/L (3.5-5.1); Sodium 138 mmol/L (136-145); Total Protein 7.2 g/dL (6.4-8.2)
[2020-08-24] MEDS: Omnipaque 350 MG/ML 50 ML BTL PO (10:46)
[2020-08-24] MEDS: Omnipaque 350 MG/ML 100 ML BTL IV (10:47)
[2020-08-24] MEDS: Normal Saline Flush 10 ML SYR IVP (10:48)
[2020-08-24] MEDS: Normal Saline - Diluent 50 ML VIAL IV (10:48)
[2020-08-27 10:32] LABS: CA 19-9 6 U/mL (<35)
[2020-08-27 12:11] LABS: C-Peptide 1.6 ng/mL (1.1 - 4.4)
== END 2020-08-24 04:49 ==
PROVIDERS: PCP Family Medicine; Visit Provider Internal Medicine Hematology & Oncology
DX: C25.0 Malignant neoplasm of head of pancreas (principal); Z90.411 Acquired partial absence of pancreas; Z90.49 Acquired absence of other specified parts of digestive tract; E08.65 Diabetes mellitus due to underlying condition with hyperglycemia
CPT/HCPCS: 74177; 80053; 71260; 84681; 85025; 86301; J3490; Q9967

== ENCOUNTER 2020-11-26 07:14 | Day surgery (SDC) | payer BC, SELFPAY ==
--- NOTE | 2020-11-26 06:32 | W.COLOREPORT ---
Date of service: 11/26/20 Time of Service: 08:20 Colonoscopy Report Date of procedure: 11/26/20 Pre-op diagnosis general: Colon Cancer screening Post-op diagnosis procedure note: same (one polyp) Procedure: Colonoscopy with polypectomy Surgeon: Nicol Orozco Anesthesia proc note operative: other (General/ASA 3/Salma Spence CRNA/ Jaron Simmons CRNA) Estimated blood loss (mL): 2 Pathology: other (Rectal polyp) Complications: None Disposition: same day Indications: The patient is here for Colonoscopy pre-op. He has no family history of colon cancer. He has not had any bowel habit changes. -Discussed colonoscopy bowel prep as well as the procedure. Discussed possible complications of the procedure to include bleeding, pain, perforation, missed small lesion/polyp, sore throat, aspiration and adverse reaction to the medications. Questions were answered to patient?s satisfaction. No guarantees were implied or given. Prep: Miralax/Dulcolax Procedure Start Time: 08:20 Procedure End Time: 08:50 Retraction Time: 21 minutes Findings: One small < 5 mm rectal polyp Procedure Description: After informed consent was obtained the patient was taken to the procedure room and placed in a left decubitous position. Monitors were applied and a time out was done. The patients name, date of , procedure, allergies to medications and metal in their body was reviewed. The patient was then sedated. Once sedated and comfortable a rectal exam was done. External exam was normal. Internal exam revealed a normal sphincter tone and no palpable masses. The prostate felt smooth. The scope was then introduced and retro-flexed. No internal hemorrhoids, polyps or masses were identified on retro-flexion. The scope was then advanced to the cecum without difficulty. The ileocecal vlave and appendiceal orifice were identified. The prep was good. The scope was then slowly retracted over 21 minutes back into the rectum. Polyps were removed with cold forceps in the rectum x1. There was no diverticulosis noted. The scope was removed and the patient was woken up and taken back to Same day surgery in stable condition. The patient tolerated the procedure well and there were no immediate complications. Follow up: The patient should follow up in 10 years unless they develop changes in bowel habits or other new gastrointestinal complaints.
--- NOTE | 2020-11-26 06:33 | W.PM.DSUDISC ---
Discharge Plan Disposition Patient Disposition: HOME Condition: Good Discharge Details Reason For Visit: Colonoscopy Attending Provider: Nicol Orozco Primary Care Provider: Fabrizio Jessica Home Meds and New Rx's Prescriptions: Continued (DME) ReliOn Prime Test Strips Strip See Rx Instructions .ROUTE .MEDSUPPLY Qty: 100 RF: 12 (DME) lancets [ReliOn Ultra Thin Plus Lancets] Misc See Rx Instructions .ROUTE .MEDSUPPLY Qty: 200 RF: 12 Lantus Solostar U-100 Insulin 100 unit/mL (3 mL) insulin pen 28 unit SC BID Qty: 15 RF: 3 cholecalciferol (vitamin D3) 1,000 unit capsule 1,000 unit PO DAILY RF: 0 atorvastatin 40 mg tablet 40 mg PO DAILY Qty: 90 RF: 3 lisinopril-hydrochlorothiazide 20-25 mg tablet 1 tab PO DAILY Qty: 90 RF: 3 (DME) pen needle, diabetic [Lite Touch Insulin Pen [place]] 31 gauge x 3/16 needle See Rx Instructions .ROUTE .MEDSUPPLY Qty: 100 RF: 12 insulin lispro [Humalog KwikPen Insulin] 100 unit/mL insulin pen See Rx Instructions SC TID MDD 20 units 90 Days Qty: 75 RF: 12 famotidine 20 mg tablet 20 mg PO BID RF: 0 Creon 36,000-114,000- 180,000 unit capsule,delayed release(DR/EC) 1 cap PO TID RF: 0 oral marijuana inhalation TID PRN RF: 0 aspirin [Adult Low Dose Aspirin] 81 mg tablet,delayed release (DR/EC) 81 mg PO DAILY RF: 0 Lactobacillus acidophilus 10 billion cell capsule 10 cell PO DAILY RF: 0 ibuprofen 600 mg tablet 600 mg PO Q6H PRNRF: 0 (DME) flash glucose scanning reader Misc See Rx Instructions .ROUTE .MEDSUPPLY Qty: 1 RF: 0 (DME) flash glucose sensor Kit See Rx Instructions .ROUTE .MEDSUPPLY Qty: 1 RF: 11 acetaminophen 325 mg Tablet 650 mg PO QID RF: 0 Culturelle 10 billion cell Capsule 1 cap PO DAILY RF: 0 Men Under 50 Multivitamin 8 mg iron- 200 mcg-600 mcg Tablet 1 tab PO DAILY RF: 0 metformin 500 mg Tablet 500 mg PO BID RF: 0 trazodone 100 mg Tablet 100 mg PO DAILY RF: 0 Discontinued polyethylene glycol 3350 17 gram/dose powder 238 g PO ONCE Qty: 238 RF: 0 bisacodyl [Dulcolax (bisacodyl)] 5 mg tablet,delayed release (DR/EC) 5 mg PO ONCE Qty: 4 RF: 0 Discharge Instructions Additional Instructions: Findings: One benign appearing polyp Follow up: Most likely 10 years Please call if you develop: fevers >101.5 Nausea or Vomiting Abdominal pain that is not transient DAY SURGERY UNIT POST ENDOSCOPY INSTRUCTIONS 1. Because there will be medication in your system for the next 24 hours, you may feel a little sleepy. Your coordination will be affected. Therefore: a. Do not drive or operate dangerous equipment for 24 hours. b. Do not drink alcohol beverages for 24 hours (not even beer). c. Plan to go home and rest for the day. 2. Generally there are no restrictions on your activity after a day or so has gone by, but you may feel a bit fatigued for a few days. 3 After you arrive home you may have a light meal and return to a normal diet as you can tolerate it without feeling sick to your stomach. 4. After surgery, you may feel pain or discomfort. This should be only transient, but if it persists please contact your doctor. 5. If there are any questions regarding the findings of your procedure, please feel free to contact your doctor. 6. If you are unable to contact your doctor with a problem, contact the hospital at [phone]. 7. Continue all your regular medications unless directed otherwise. I understand the above instructions and have no questions. Signature of Patient or Responsible Adult Escort Date/Time Name of Responsible Adult Escort Signature of Nurse Date/Time Activity:: Activity as Tolerated Diet:: As Tolerated Discharge Orders Discharge Orders: Discharge Order (Routine); Ordered 11/26/20 Ordered By: Nicol Orozco
[2020-11-26 07:42] VITALS: BP 127/82; PULSE 84; RESP 16; TEMP 36.4; O2SAT 96
[2020-11-26] MEDS: Lactated Ringers 1,000 ML 80 ML IV (08:07)
--- NOTE | 2020-11-26 08:45 | BOWEL_PTH ---
PATIENT: Frederick Ochoa LOC: [facility] U#:[id number] AGE/SX: 50/M ROOM: RE11/26/[address]: Nicol Orozco MD : [id number] BED: DIS: 11/26/2020 SPEC #: [id number] RECD: 11/26/20 12:33 STATUS: FRANCIE REQ #: [id number] JEFF: 11/26/20 08:[address]: Nicol Orozco DEPT: Surgical Specimen RECD BY: Sadie Mcdaniels ENTERED: 11/26/20 12:33 SP TYPE: Bowel OTHR DR: Fabrizio Jessica DO Tissues: 1 - BIOPSY BOWEL Procedures: GROSS AND MICRO LEVEL 4 Comments: [id number]
[2020-11-26 09:30] VITALS: BP 130/79; PULSE 70; RESP 16; TEMP 36.4; O2SAT 98
--- NOTE | 2020-11-26 16:01 | NUR.NOTE ---
11/26/20 2600 Frederick called to report he was having some discomfort in the arm his IV was placed. He reported that the nurses had to try [address] the IV which was started by Aida MÉNDEZ. This nurse transferred the call to an anesthesia provider. Paxton MÉNDEZ who spoke with the patient.
== END 2020-11-26 10:04 | disposition home or self-care (01) ==
LOC: SUR 07:15
PROVIDERS: PCP Family Medicine; Visit Provider Surgery
PROC: 0DJD8ZZ Inspection of Lower Intestinal Tract, Via Natural or Artificial Opening Endoscopic (ICD-10-PCS; CPT 45378; principal; 2020-11-26 08:15)
DX: Z12.11 Encounter for screening for malignant neoplasm of colon (principal); K62.1 Rectal polyp; E11.9 Type 2 diabetes mellitus without complications; Z79.84 Long term (current) use of oral hypoglycemic drugs
CPT/HCPCS: 45380; 88305; J2001; J2704

== ENCOUNTER 2020-11-27 03:40 | Outpatient (CLI) | payer BC, SELFPAY ==
[2020-11-27 14:35] LABS: Abs Immature Grans 0.03 10^3/uL (0.0-0.06); Absolute Basophil Count 0.05 10^3/uL (0.0-0.2); Basophils % 0.4; Eosinophils % 1.1; HCT 41.1 % (40.0-50.0); HGB 13.5 g/dL (13.5-17.5); Immature Grans % 0.2; Lymphocytes % 13.1; MCH 29.3 pg (27.0-33.0); MCHC 32.8 % (32.0-36.0); MCV 89.3 fL (80-95); MPV 8.9 fL (8.0-11.0); Monocytes % 8.4; Neutrophils % 76.8; Nucleated RBC 0 %; Platelet Count 357 10^3/uL (130-400); RDW 14.6 % (11.8-14.1); WBC 12.19 10^3/uL (4.4-10.8)
[2020-11-27 14:36] LABS: Absolute Eosinophil Count 0.13 10^3/uL (0.0-0.7); Absolute Monocyte Count 1.02 10^3/uL (0.1-0.8); Absolute Neutrophil Count 9.36 10^3/uL (1.2-6.7)
[2020-11-27 15:05] LABS: ALT 56 U/L (16-63); AST 25 U/L (15-37); Albumin 3.8 g/dL (3.4-5.0); Alkaline Phosphatase 110 U/L (46-116); Anion Gap 6.8 mmol/L (3-11); BUN 14 mg/dL (7-18); Bilirubin, Total 0.9 mg/dL (0.2-1.0); CO2 33.2 mmol/L (21.0-32.0); CREATININE 0.9 mg/dL (0.70-1.30); Calcium 9.5 mg/dL (8.5-10.1); Chloride 99 mmol/L (98-107); Glucose 145 mg/dL (74-106); Potassium 3.8 mmol/L (3.5-5.1); Sodium 139 mmol/L (136-145); Total Protein 6.8 g/dL (6.4-8.2)
[2020-11-28 10:20] LABS: CA 19-9 <2 U/mL (<35)
== END 2020-11-27 03:41 | disposition home or self-care (01) ==
LOC: LBO 03:40
PROVIDERS: PCP Family Medicine; Visit Provider Internal Medicine Hematology & Oncology
DX: C25.0 Malignant neoplasm of head of pancreas (principal)
CPT/HCPCS: 36415; 80053; 85025; 86301

== ENCOUNTER 2021-01-24 03:01 | Outpatient (CLI) | payer BC, SELFPAY ==
[2021-01-25 15:17] LABS: COVID-19 RT-PCR UVMMC Result Negative (Negative)
== END 2021-01-24 03:02 | disposition home or self-care (01) ==
LOC: LBO 03:01
PROVIDERS: PCP Family Medicine; Visit Provider Family Medicine
DX: Z20.822 Contact with and (suspected) exposure to COVID-19 (principal)
CPT/HCPCS: U0003

== ENCOUNTER 2021-03-05 02:48 | Outpatient (CLI) | payer BC, SELFPAY ==
[2021-03-05 13:16] LABS: Abs Immature Grans 0.05 10^3/uL (0.0-0.06); Absolute Basophil Count 0.05 10^3/uL (0.0-0.2); Absolute Eosinophil Count 0.27 10^3/uL (0.0-0.7); Absolute Lymphocyte Count 1.29 10^3/uL (1.2-3.4); Absolute Monocyte Count 0.97 10^3/uL (0.1-0.8); Absolute Neutrophil Count 8.16 10^3/uL (1.2-6.7); Basophils % 0.5; Eosinophils % 2.5; HCT 38.5 % (40.0-50.0); HGB 12.9 g/dL (13.5-17.5); Immature Grans % 0.5; MCH 29.6 pg (27.0-33.0); MCHC 33.5 % (32.0-36.0); MCV 88.3 fL (80-95); MPV 9.3 fL (8.0-11.0); Neutrophils % 75.5; Nucleated RBC 0 %; Platelet Count 376 10^3/uL (130-400); RBC 4.36 10^6/uL (4.36-5.78); RDW 14.5 % (11.8-14.1); RDW-SD 46.7 fL; WBC 10.79 10^3/uL (4.4-10.8)
[2021-03-05 14:12] LABS: ALT 44 U/L (16-63); AST 22 U/L (15-37); Albumin 3.6 g/dL (3.4-5.0); Alkaline Phosphatase 132 U/L (46-116); Anion Gap 7.8 mmol/L (3-11); BUN 16 mg/dL (7-18); Bilirubin, Total 1.1 mg/dL (0.2-1.0); CO2 31.2 mmol/L (21.0-32.0); CREATININE 0.9 mg/dL (0.70-1.30); Calcium 9.7 mg/dL (8.5-10.1); Chloride 103 mmol/L (98-107); Glucose 263 mg/dL (74-106); Potassium 4.2 mmol/L (3.5-5.1); Sodium 142 mmol/L (136-145); Total Protein 6.8 g/dL (6.4-8.2)
[2021-03-06 09:06] LABS: CA 19-9 2 U/mL (<35)
== END 2021-03-05 02:49 | disposition home or self-care (01) ==
LOC: LBO 02:48
PROVIDERS: PCP Family Medicine; Visit Provider Internal Medicine Hematology & Oncology
DX: C25.0 Malignant neoplasm of head of pancreas (principal)
CPT/HCPCS: 36415; 80053; 85025; 86301

== ENCOUNTER 2021-06-06 12:08 | Outpatient (CLI) | payer BC, SELFPAY ==
--- NOTE | 2021-06-06 09:30 | DI.RAD_ITS ---
Exam(s) XR KNEE RT 4V AP,LAT,DANNY,PAT EXAM: XR KNEE RT 4V AP,LAT,DANNY,PAT CLINICAL HISTORY: pain. TECHNIQUE: 2D digital imaging was performed of the right knee. Four views obtained. AP, lateral, Me rchant and PA tunnel views were obtained. COMPARISON: No exams were available for comparison FINDINGS: BONES: No acute fracture is present. No bony destructive lesion is seen. There is an enthesophyte at the superior patella. Two well corticated osseous densities are seen at the lateral aspect of the pa tella. JOINTS: The knee is normally aligned. Small joint effusion is present. Mild spurring of the posterio r patella. SOFT TISSUE: Atherosclerosis. IMPRESSION: Mild degenerative changes of the right knee. DATA REPOSITORY: RADIATION DOSE DELIVERED:
== END 2021-06-06 12:09 | disposition home or self-care (01) ==
LOC: DIORS 12:09
PROVIDERS: PCP Family Medicine; Referring Provider Family Medicine; Visit Provider Physician Assistant Surgical
DX: M25.561 Pain in right knee (principal); M17.11 Unilateral primary osteoarthritis, right knee
CPT/HCPCS: 73564

== ENCOUNTER 2021-06-07 17:18 | Outpatient (CLI) | payer BC, SELFPAY ==
[2021-06-07 10:21] LABS: Abs Immature Grans 0.03 10^3/uL (0.0-0.06); Absolute Basophil Count 0.07 10^3/uL (0.0-0.2); Absolute Lymphocyte Count 1.85 10^3/uL (1.2-3.4); Absolute Monocyte Count 0.99 10^3/uL (0.1-0.8); Basophils % 0.6; Eosinophils % 2.7; HCT 42.8 % (40.0-50.0); HGB 14.3 g/dL (13.5-17.5); Immature Grans % 0.3; Lymphocytes % 15.9; MCH 29.2 pg (27.0-33.0); MCHC 33.4 % (32.0-36.0); MCV 87.3 fL (80-95); MPV 9.3 fL (8.0-11.0); Monocytes % 8.5; Nucleated RBC 0 %; Platelet Count 360 10^3/uL (130-400); RDW 13.9 % (11.8-14.1); RDW-SD 44.8 fL; WBC 11.66 10^3/uL (4.4-10.8)
[2021-06-07 10:22] LABS: Absolute Eosinophil Count 0.31 10^3/uL (0.0-0.7)
[2021-06-07 10:36] LABS: ALT 65 U/L (16-63); AST 36 U/L (15-37); Albumin 3.9 g/dL (3.4-5.0); Alkaline Phosphatase 128 U/L (46-116); Anion Gap 3.6 mmol/L (3-11); BUN 18 mg/dL (7-18); Bilirubin, Total 0.8 mg/dL (0.2-1.0); CO2 33.4 mmol/L (21.0-32.0); CREATININE 0.9 mg/dL (0.70-1.30); Calcium 9.5 mg/dL (8.5-10.1); Chloride 104 mmol/L (98-107); Glucose 238 mg/dL (74-106); Potassium 4.2 mmol/L (3.5-5.1); Sodium 141 mmol/L (136-145); Total Protein 7.4 g/dL (6.4-8.2)
[2021-06-07 14:22] LABS: TSH 0.63 uIU/mL (0.36-3.74); Vitamin B12 799 pg/mL (193-986)
[2021-06-10 09:46] LABS: CA 19-9 <2 U/mL (<35)
== END 2021-06-07 17:19 | disposition home or self-care (01) ==
LOC: LBO 17:20
PROVIDERS: PCP Family Medicine; Visit Provider Internal Medicine Hematology & Oncology
DX: R53.83 Other fatigue (principal); C25.0 Malignant neoplasm of head of pancreas
CPT/HCPCS: 36415; 80053; 82607; 84443; 85025; 86301

== ENCOUNTER 2021-07-23 10:10 | Emergency (ER) | payer BC, SELFPAY ==
[2021-07-23] VITALS (12 sets, daily range): BP systolic 126–179; BP diastolic 75–97; PULSE 60–113; RESP 10–24; TEMP 36.4; O2SAT 90–99
--- NOTE | 2021-07-23 10:00 | RT.EKG_ITS ---
APPROVED REPORT Exam: Resting ECG Reason for Exam: heart attack? Patient Location: E HR:68 bpm ECG Measurements Heart Rate 68 AXIS NH 150 P 54 QRSd 100 QRS 66 QT 403 T 27 QTc 428 Conclusion Sinus rhythm...normal P axis, V-rate 60- 99. Sinus. No STEMI. I have reviewed and interpreted ECG and agree with software generated interpretation.
--- NOTE | 2021-07-23 10:15 | DI.RAD_ITS ---
Exam(s) XR PORTABLE CHEST AP EXAM: XR PORTABLE CHEST AP CLINICAL HISTORY: Mid Back pain. L arm pain. TECHNIQUE: 2D digital imaging was performed. COMPARISON: No exams were available for comparison FINDINGS: LUNGS: Clear. No pleural abnormality seen. HEART: Normal. MEDIASTINUM: Normal. OTHER FINDINGS: None. IMPRESSION: No acute pulmonary findings. DATA REPOSITORY: RADIATION DOSE DELIVERED: Total DLP
--- NOTE | 2021-07-23 10:24 | W.ED.GENAD ---
Discharge Plan Disposition Patient Disposition: AGAINST MEDICAL ADVICE Condition: Serious Discharge Details Chief Complaint: Chest Pain Clinical Impression: Back pain, Arm pain, left Primary Care Provider: Fabrizio Jessica ED Provider: Alvin Garcia Home Meds and New Rx's Prescriptions: No Action (DME) ReliOn Prime Test Strips Strip See Rx Instructions .ROUTE .MEDSUPPLY Qty: 100 RF: 12 (DME) lancets [ReliOn Ultra Thin Plus Lancets] Misc See Rx Instructions .ROUTE .MEDSUPPLY Qty: 200 RF: 12 insulin lispro [Humalog KwikPen Insulin] 100 unit/mL insulin pen See Rx Instructions SC TID MDD 20 units 90 Days Qty: 75 RF: 12 Lantus Solostar U-100 Insulin 100 unit/mL (3 mL) insulin pen 45 unit SC BID Qty: 72 RF: 3 cholecalciferol (vitamin D3) 1,000 unit capsule 1,000 unit PO DAILY RF: 0 famotidine 20 mg tablet 20 mg PO BID RF: 0 Creon 36,000-114,000- 180,000 unit capsule,delayed release(DR/EC) 1 cap PO TID RF: 0 oral marijuana inhalation TID PRN RF: 0 aspirin [Adult Low Dose Aspirin] 81 mg tablet,delayed release (DR/EC) 81 mg PO DAILY RF: 0 ibuprofen 600 mg tablet 600 mg PO Q6H PRNRF: 0 (DME) flash [facility] See Rx Instructions .ROUTE .MEDSUPPLY Qty: 1 RF: 0 (DME) flash glucose sensor Kit See Rx Instructions .ROUTE .MEDSUPPLY Qty: 1 RF: 11 atorvastatin 40 mg tablet 40 mg PO DAILY Qty: 90 RF: 3 lisinopril-hydrochlorothiazide 20-25 mg tablet 1 tab PO DAILY Qty: 90 RF: 3 (DME) pen needle, diabetic [Lite Touch Insulin Pen Ransom] 31 gauge x 3/16 needle See Rx Instructions .ROUTE .MEDSUPPLY Qty: 100 RF: 12 acetaminophen 325 mg Tablet 650 mg PO QID RF: 0 Culturelle 10 billion cell Capsule 1 cap PO DAILY RF: 0 Men Under 50 Multivitamin 8 mg iron- 200 mcg-600 mcg Tablet 1 tab PO DAILY RF: 0 Discharge Data Discharge Date/Time-TO BE ENTERED AT DEPARTURE: 07/23/21 11:32 Medical Decision Making 50-year-old male, past medical history of diabetes, pancreatic cancer, AAA repair, presenting to the ER reporting mid upper back pain that began around 730 suddenly associated with pain and tingling down his left arm. He denies any chest pain or shortness of breath. He denies recent illness or trauma. Given his concerning past medical history and presentation initiated a cardiac work-up and placed CTA imaging of his neck, thorax, abdomen and pelvis, concern for aneurysm-dissection. Given my concern for this will not initiate aspirin therapy. Patient denies any chest pain. Based upon his presentation I concern for dissection, PE, etc. is higher than my concern for acute coronary syndrome. Patient is agreeable to this plan and has no questions at this time. Blood pressure is 171/97, pulses appear equal in all 4 extremities. I do not appreciate any bounding or pulsatile mass in his abdomen. Discussed that once his stat CT is completed, will discuss medications and analgesia. Given my concern for the patient, I did request that a second IV access to be obtained. Patient is awaiting CT. I went to discuss with him his initial EKG and chest x-ray which are benign for obvious emergent process. White blood cell count nonspecific leukocytosis minimal at 11.19 no evidence of anemia, platelet count 384. INR 1.0 electrolytes reveal sodium 142 potassium 3.5 chloride 103 creatinine 0.8 with a GFR greater than 30. Patient is now yelling, irate, does not want any more studies performed. I explained to him given his history of diabetes, AAA, presentation with mid back pain that radiates down his left arm, this very well could be consistent with aneurysm-dissection and I need to rule out life emergent processes. Also certainly cannot rule out PE. Patient initially told me nothing makes his pain worse or better, states his pain is made worse with movement of his neck and believe that he has a pinched nerve. Patient would like his pain addressed. I explained to him that I could very well address his pain with medication but I still would request that he received the diagnostic imaging as I am concerned for potential life-threatening process. Patient states that he does not want to stay here in the ER, yells just take these damn IVs out. I will just leave here and go to [place]. I know when I came here I said I was having a heart attack, but now I think it is just a pinched nerve and I do not want any of the other tests I did acknowledge to the patient that while this very well could be a pinched nerve, it was not consistent with his initial presentation of sudden mid back pain that radiated down his arm. We did discuss analgesia at this time. His bigger concern is the additional CT images that are ordered in the cost of these things. Patient is requesting that his IV be taken out and he be discharged, he states he will go to another hospital to have his pinched nerve treated. Patient appears clinically sober, is of sound mind, and based upon my clinical examination has the capacity to make their own decisions. We have offered treatment options and discussed the the risks and benefits of these options and refusing these options, including and/or disability specific to the patient's pathology. Pt is able to discuss and understands the risks and benefits and alternatives of treatment and refusing treatment. The patient still chooses to leave before evaluation and treatment can be completed AGAINST MEDICAL ADVICE. Medical Records Medical records reviewed: Yes I reviewed the patient's medical records. Imaging Data Radiologic Study: Attestation: I personally reviewed and interpreted this imaging study as follows: Imaging: X-Ray Radiologist's impression: EXAM XR PORTABLE CHEST AP CLINICAL HISTORY [ Mid Back pain. L arm pain. ] [] TECHNIQUE 2D digital imaging was performed. COMPARISON [No exams were available for comparison] [] FINDINGS LUNGS: [Clear.] [No pleural abnormality seen.][] HEART: [Normal.] MEDIASTINUM: [Normal.] OTHER FINDINGS: [None.] IMPRESSION [No acute pulmonary findings Lab Data Lab results reviewed: Yes I reviewed the patient's lab results. Labs: Laboratory Tests Range/Units 07/23/21 07/23/21 07/23/21 10:20 10:20 10:20 WBC (4.4-10.8) 10^3/uL 11.19 H RBC (4.36-5.78) 10^6/uL 4.75 Hgb (13.5-17.5) g/dL 13.8 Hct (40.0-50.0) % 42.0 MCV (80-95) fL 88.4 MCH (27.0-33.0) pg 29.1 MCHC (32.0-36.0) % 32.9 RDW (11.8-14.1) % 14.1 Plt Count (130-400) 10^3/uL 384 MPV (8.0-11.0) fL 9.9 Immature Gran % 0.3 Neutrophils % 67.7 Lymphocytes % 18.9 Monocytes % 9.2 Eosinophils % 3.2 Basophils % 0.7 Nucleated RBC % % 0 Absolute Neutrophils (1.2-6.7) 10^3/uL 7.58 H Absolute Lymphocytes (1.2-3.4) 10^3/uL 2.11 Absolute Monocytes (0.1-0.8) 10^3/uL 1.03 H Absolute Eosinophils (0.0-0.7) 10^3/uL 0.36 Absolute Basophils (0.0-0.2) 10^3/uL 0.08 PT (9.3-11.0) sec 9.9 INR (0.9-1.1) 1.0 APTT (21.0-27.5) sec 25.7 D-Dimer (<500) ng/mlFEU 517 H Sodium (136-145) mmol/L 142 Potassium (3.5-5.1) mmol/L 3.5 Chloride (98-107) mmol/L 103 Carbon Dioxide (21.0-32.0) mmol/L 33.5 H Anion Gap (3-11) mmol/L 5.5 BUN (7-18) mg/dL 16 Creatinine (0.70-1.30) mg/dL 0.8 Estimated GFR/1.73 m2 (mL/min/1.73m2) >= 60.00 Glucose (74-106) mg/dL 174 H Calcium (8.5-10.1) mg/dL 9.7 Magnesium (1.8-2.4) mg/dL 1.7 L Total Bilirubin (0.2-1.0) mg/dL 1.1 H AST (15-37) U/L 23 ALT (16-63) U/L 46 Alkaline Phosphatase (46-116) U/L 128 H Troponin I (<0.06) ng/mL < 0.05 Total Protein (6.4-8.2) g/dL 7.4 Albumin (3.4-5.0) g/dL 3.9 COVID-19 Source SARS-CoV-2 (PCR) (Negative) Range/Units 07/23/21 07/23/21 10:44 13:25 WBC (4.4-10.8) 10^3/uL RBC (4.36-5.78) 10^6/uL Hgb (13.5-17.5) g/dL Hct (40.0-50.0) % MCV (80-95) fL MCH (27.0-33.0) pg MCHC (32.0-36.0) % RDW (11.8-14.1) % Plt Count (130-400) 10^3/uL MPV (8.0-11.0) fL Immature Gran % Neutrophils % Lymphocytes % Monocytes % Eosinophils % Basophils % Nucleated RBC % % Absolute Neutrophils (1.2-6.7) 10^3/uL Absolute Lymphocytes (1.2-3.4) 10^3/uL Absolute Monocytes (0.1-0.8) 10^3/uL Absolute Eosinophils (0.0-0.7) 10^3/uL Absolute Basophils (0.0-0.2) 10^3/uL PT (9.3-11.0) sec INR (0.9-1.1) APTT (21.0-27.5) sec D-Dimer (<500) ng/mlFEU Sodium (136-145) mmol/L Potassium (3.5-5.1) mmol/L Chloride (98-107) mmol/L Carbon Dioxide (21.0-32.0) mmol/L Anion Gap (3-11) mmol/L BUN (7-18) mg/dL Creatinine (0.70-1.30) mg/dL Estimated GFR/1.73 m2 (mL/min/1.73m2) Glucose (74-106) mg/dL Calcium (8.5-10.1) mg/dL Magnesium (1.8-2.4) mg/dL Total Bilirubin (0.2-1.0) mg/dL AST (15-37) U/L ALT (16-63) U/L Alkaline Phosphatase (46-116) U/L Troponin I (<0.06) ng/mL Cancelled Total Protein (6.4-8.2) g/dL Albumin (3.4-5.0) g/dL COVID-19 Source Nasal/Nares SARS-CoV-2 (PCR) (Negative) Negative ECG Data Attestation: I personally reviewed and interpreted this ECG (s) as follows: Interpretation: Please see official report by Dr. Baker. Sinus rhythm, ventricular rate of 68. No STEMI. HPI General Mode of arrival: ambulatory. Date/Time Provider Initiated Documentation: 07/23/21 10:11. Limitations to Documentation: no limitations. Information obtained by: patient. HPI Narrative: This is a 50-year-old gentleman, past medical history of AAA repair, diabetes, pancreatic cancer, anxiety, cannabis use, hypertension, former smoker, presents to the ER reporting mid upper back pain-tightness that began suddenly today around 7:30 AM with subsequent left arm pain and tingling. Patient states that the pain in his back is almost resolved completely but he continues to have left shoulder and arm discomfort, nothing really makes it worse or better, having a difficult time finding a comfortable position. He states the pain currently is aching, 6 out of 10 but at times is sharp 10 out of 10. He denies recent illness or trauma. He is right-hand dominant. Denies headache, neck pain, anterior chest pain, shortness of breath, cough, visual changes, abdominal pain, nausea, vomiting, change in bowel or bladder function, numbness or weakness. Patient does report chronic right knee pain. Patient is a baby aspirin this morning, his typical medications, and took a single dose of ibuprofen for the discomfort which has not made any significant improvement. Patient does not describe the pain as ripping or tearing. Patient tells me he had a AAA repair approximately 3 years ago, subsequent pancreatic cancer surgery 1 year ago. Related Data Home Medications Medication Instructions Recorded Confirmed cholecalciferol (vitamin D3) 25 1,000 unit PO DAILY 08/10/19 07/23/21 mcg (1,000 unit) capsule blood sugar diagnostic #100 each 09/09/19 07/23/21 lancets #200 each 09/09/19 07/23/21 Culturelle 1 cap PO DAILY 11/10/19 07/23/21 Men Under 50 Multivitamin 1 tab PO DAILY 11/10/19 07/23/21 acetaminophen 650 mg PO QID 11/10/19 07/23/21 famotidine 20 mg tablet 20 mg PO BID 02/03/20 06/10/21 aspirin 81 mg tablet,delayed 81 mg PO DAILY 05/10/20 07/23/21 release ibuprofen 600 mg tablet 600 mg PO Q6H PRN 05/10/20 07/23/21 [id number] 1 cap PO TID 05/10/20 07/23/21 36,000-114,000-180,000 unit capsule,delay rel oral marijuana INHALATION TID PRN 05/10/20 06/10/21 flash glucose scanning reader #1 each 06/12/20 07/23/21 flash glucose sensor #1 each 06/12/20 07/23/21 atorvastatin 40 mg tablet 40 mg PO DAILY #90 tab 02/05/21 07/23/21 lisinopril 20 1 tab PO DAILY #90 tab 02/05/21 07/23/21 mg-hydrochlorothiazide 25 mg tablet pen needle, diabetic 31 gauge x #100 each 02/05/21 07/23/21 3/ insulin glargine 100 unit/mL (3 45 unit SC BID #72 ml 04/16/21 07/23/21 mL) subcutaneous pen insulin lispro 100 unit/mL See Rx Instructions SC TID 90 Days 04/16/21 07/23/21 subcutaneous pen #75 ml MDD 20 units Previous Rx's Medication Instructions Recorded blood sugar diagnostic #100 each 09/09/19 lancets #200 each 09/09/19 flash glucose scanning reader #1 each 06/12/20 flash glucose sensor #1 each 06/12/20 atorvastatin 40 mg tablet 40 mg PO DAILY #90 tab 02/05/21 lisinopril 20 1 tab PO DAILY #90 tab 02/05/21 mg-hydrochlorothiazide 25 mg tablet pen needle, diabetic 31 gauge x #100 each 02/05/2112/04 insulin glargine 100 unit/mL (3 45 unit SC BID #72 ml 04/16/21 mL) subcutaneous pen insulin lispro 100 unit/mL See Rx Instructions SC TID 90 Days 04/16/21 subcutaneous pen #75 ml MDD 20 units Allergies Allergy/AdvReac Type Severity Reaction Status Date / Time adhesive tape Allergy Verified 07/23/21 10:22 oxycodone [From Percocet] Allergy Verified 07/23/21 10:22 General Stated Complaint: Chest Pain SEBASTIEN: 2 Review of Systems Constitutional Constitutional: Denies fatigue, Denies fever(s), Denies headache(s) and Denies weakness Eyes Eyes: Denies change in vision ENT Ears, Nose, Mouth, and Throat: Denies headache(s) and Denies neck pain Cardiovascular Cardiovascular: Denies chest pain and Denies dyspnea Respiratory Respiratory: Denies cough and Denies dyspnea Gastrointestinal Gastrointestinal: Denies abdominal pain, Denies nausea and Denies vomiting Genitourinary Genitourinary: Denies dysuria Musculoskeletal Musculoskeletal: Reports back pain, Denies neck pain, Denies numbness and Reports tingling Integumentary/Breasts Skin/Breast: Denies rash Neurologic Neurologic: Denies headache(s), Denies numbness, Reports tingling and Denies weakness Psychiatric Psychiatric: Reports anxiety Endocrine Endocrine: Denies fatigue Hematologic/Lymphatic Hematologic/Lymphatic: Denies easy bleeding and Denies easy bruising [facility] Medical History Anxiety Asthma Benign prostatic hyperplasia with lower urinary tract symptoms Cannabis abuse Diabetes Diabetes mellitus due to underlying condition, uncontrolled Type II, worsened with pancreatic cancer Diabetes mellitus type 2 in obese Dysthymic disorder Fatigue Hyperlipidemia Hypertension Iliac aneurysm Insomnia Intermittent explosive disorder Knee instability Pancreatic cancer 02/16/20 Dr Granados, Art Pearson, radiation tx 02/26/21 f/u [facility] [place] Surgery PTSD (post-traumatic stress disorder) Surgical History History of appendectomy (~2013) History of partial pancreatectomy (~05/03/20) Partial Port Portal vein resection History of surgery right forearm tendon repair, per pt. History of tonsillectomy (~1978) History of vasectomy S/P AAA repair (~2016) S/P cholecystectomy (05/03/20) S/P hernia repair (~1991) S/P splenectomy (~05/03/20) S/P surgical removal of pilonidal cyst Family History Mother Breast cancer BRCA Hypertension Sister BRCA1 positive Paternal Grandfather Cancer Father Heart attack Hypertension Maternal Grandmother Diabetes Stroke Paternal Grandmother Cancer Colorectal Diabetes Social History Smoking/Tobacco Use Status: Former Tobacco Use Quit Date: 04/21/15 Tobacco: How many years used: 30 Smoking risk assessment performed?: Yes Alcohol Intake: former Drug use: Daily Substance use type: marijuana Details: No IV Drug Use Adopted: No Caregiver/Support person: No Foster care: No Household members: spouse Housing: house Number of Children: 1 Communication Needs: None Do you need help understanding health information?: Never current occupation: Unemployed Sexually active: No Do you think of yourself as: straight/heterosexual Current gender identity: male What is your relationship status?: How often do you talk on the phone with friends or family?: three or more times per week Panel score (0-1 are the most socially isolated patients): 2 What type of physical activity do you participate in: none Seatbelt use: always Drive intox or ride w/intox electric truck driver: No Working smoke detector in home: Yes Fire extinguisher in home: Yes Carbon monox detector in home: Yes Do you feel safe at home: Yes Do you feel safe in your relationship?: Yes Exam Const General: cooperative, healthy appearing, no acute distress and anxious Orientation: alert, awake and oriented x3 HENMT Head: normal to inspection, normocephalic and atraumatic Face and sinus: normal facial exam Mouth: moist mucous membranes Throat: posterior oropharynx normal Eyes General: appearance normal, both eyes and all related structures Conjunctivae: conjunctivae normal Neck Neck: normal visual inspection, full ROM, no lymphadenopathy, no meningeal signs, trachea midline, supple and nontender Carotids: no bruits Chest Chest: normal inspection of the chest and normal palpation of entire chest wall Resp Effort & Inspection: normal respiratory effort and able to speak in complete sentences Auscultation: clear to auscultation bilaterally Cardio Rate: regular rate Rhythm: regular rhythm GI Inspection: scar Palpation: soft, not firm, no guarding, no pulsatile masses and nontender Auscultation: normal bowel sounds Back/Spine/Pelvis Back: No back tenderness Skin General skin exam: no rashes or lesions noted Neuro General: patient alert, patient awake, moves all extremities and no focal motor deficits Cognition: normal cognition Speech: speech normal Gait: normal gait Motor: muscle tone normal throughout Sensory Exam: no sensory deficits noted Extrem General: normal to inspection, full ROM, capillary refill normal, no pedal edema and no calf tenderness Psych Appearance: grossly normal Mental Status: mental status grossly normal Course Vital Signs Vital signs: Vital Signs Temperature 36.4 C L 07/23/21 10:15 Pulse 66 07/23/21 10:15 Respiratory Rate 18 07/23/21 10:15 Blood Pressure 171/97 H 07/23/21 10:15 Pulse Oximetry 99 07/23/21 10:15 Temperature 36.4 C L 07/23/21 10:15 Temperature Source Tympanic 07/23/21 10:15 Pulse 66 07/23/21 10:15 Respiratory Rate 16 07/23/21 10:18 Respiratory Effort Non-Labored 07/23/21 10:18 Respiratory Depth Normal 07/23/21 10:18 Respiratory Pattern Normal 07/23/21 10:18 Blood Pressure 171/97 H 07/23/21 10:15 Blood Pressure Position Sitting 07/23/21 10:15 Pulse Oximetry 99 07/23/21 10:15 Oxygen Delivery Method Room Air 07/23/21 10:15 Oxygen Flow Rate 0 07/23/21 10:15 Pain Level 10 07/23/21 10:15
[2021-07-23 10:50] LABS: Source Nasal/Nares
[2021-07-23 10:51] LABS: Abs Immature Grans 0.03 10^3/uL (0.0-0.06); Absolute Basophil Count 0.08 10^3/uL (0.0-0.2); Absolute Eosinophil Count 0.36 10^3/uL (0.0-0.7); Absolute Monocyte Count 1.03 10^3/uL (0.1-0.8); Basophils % 0.7; Eosinophils % 3.2; HGB 13.8 g/dL (13.5-17.5); Immature Grans % 0.3; Lymphocytes % 18.9; MCH 29.1 pg (27.0-33.0); MCHC 32.9 % (32.0-36.0); MCV 88.4 fL (80-95); MPV 9.9 fL (8.0-11.0); Monocytes % 9.2; Neutrophils % 67.7; Nucleated RBC 0 %; Platelet Count 384 10^3/uL (130-400); RBC 4.75 10^6/uL (4.36-5.78); RDW 14.1 % (11.8-14.1); RDW-SD 46.1 fL; WBC 11.19 10^3/uL (4.4-10.8)
[2021-07-23 10:56] LABS: Absolute Lymphocyte Count 2.11 10^3/uL (1.2-3.4); Absolute Neutrophil Count 7.58 10^3/uL (1.2-6.7)
[2021-07-23 11:03] LABS: PTT Activated 25.7 sec (21.0-27.5); Prothrombin Time 9.9 sec (9.3-11.0)
[2021-07-23 11:04] LABS: ALT 46 U/L (16-63); AST 23 U/L (15-37); Albumin 3.9 g/dL (3.4-5.0); Alkaline Phosphatase 128 U/L (46-116); Anion Gap 5.5 mmol/L (3-11); BUN 16 mg/dL (7-18); Bilirubin, Total 1.1 mg/dL (0.2-1.0); CO2 33.5 mmol/L (21.0-32.0); CREATININE 0.8 mg/dL (0.70-1.30); Calcium 9.7 mg/dL (8.5-10.1); Chloride 103 mmol/L (98-107); Glucose 174 mg/dL (74-106); Magnesium 1.7 mg/dL (1.8-2.4); Potassium 3.5 mmol/L (3.5-5.1); Sodium 142 mmol/L (136-145); Total Protein 7.4 g/dL (6.4-8.2); Troponin I < 0.05 ng/mL (<0.06)
[2021-07-23 11:20] LABS: D-Dimer 517 ng/mlFEU (<500)
[2021-07-23 11:41] LABS: COVID-19 PCR Negative (Negative)
== END 2021-07-23 11:32 | disposition left against medical advice (07) ==
LOC: ER 10:21
PROVIDERS: Emergency Provider Physician Assistant; PCP Family Medicine
DX: M54.89 Other dorsalgia (principal); R20.2 Paresthesia of skin; M79.602 Pain in left arm; Z53.29 Procedure and treatment not carried out because of patient's decision for other reasons
CPT/HCPCS: 36415; 80053; 87635; 93005; 99284; 71045; 83735; 84484; 85025; 85379; 85610; 85730; 93010

== ENCOUNTER 2021-07-29 00:20 | Outpatient (CLI) | payer BC, SELFPAY ==
--- NOTE | 2021-07-29 06:45 | DI.RAD_ITS ---
Exam(s) XR LUMBAR SPINE COMPLETE EXAM: XR LUMBAR SPINE COMPLETE CLINICAL HISTORY: hip and back pain,m54.50. TECHNIQUE: 2D digital imaging was performed of the lumbar spine. Six images were obtained. AP, lat eral, right oblique, left oblique and L5-S1 spot views were obtained. COMPARISON: No exams were available for comparison FINDINGS: BONES: No fracture or destructive lesion. Vertebral bodies are unremarkable. Mild degenerative change s of the facets are seen at L4-5 and L5-S1. DISKS: Intervertebral disc spaces are maintained. Small endplate osteophytes are seen at L2-3 and L3- L4. ALIGNMENT: There is a mild left convex curvature of the lumbar spine. No spondylolysis or spondyloli sthesis. SOFT TISSUE: Mild atherosclerosis. Surgical clips are seen in the upper abdomen. IMPRESSION: 1. Mild osteoarthritis. 2. Mild atherosclerosis. DATA REPOSITORY: RADIATION DOSE DELIVERED:
--- NOTE | 2021-07-29 06:45 | DI.RAD_ITS ---
Exam(s) XR HIP PELVIS ADULT BL EXAM: XR HIP PELVIS ADULT BL CLINICAL HISTORY: back and hip pain,m25.551,m25.552. TECHNIQUE: 2D digital imaging was performed of the pelvis and bilateral hips. Four images were obta ined. AP pelvis and lateral views of both hips were obtained. COMPARISON: No exams were available for comparison FINDINGS: BONES: No acute fracture is present. No bony destructive lesion is seen. JOINTS: No dislocation present. There are degenerative changes in both hips with prominent acetabular osteophytes and joint space narrowing. SOFT TISSUE: Mild atherosclerosis. IMPRESSION: Moderate bilateral hip osteoarthritis. DATA REPOSITORY: RADIATION DOSE DELIVERED:
--- NOTE | 2021-07-29 06:45 | DI.RAD_ITS ---
Exam(s) XR THORACIC SPINE COMPLETE EXAM: XR THORACIC SPINE COMPLETE CLINICAL HISTORY: hip and back pain,m54.6. TECHNIQUE: 2D digital imaging was performed of the thoracic spine. Five views were obtained. AP, s malick's and lateral views were obtained. COMPARISON: No exams were available for comparison FINDINGS: BONES: There is no fracture or destructive lesion. The vertebral bodies and posterior elements are un remarkable. DISKS:Alignment is within normal limits. Interverebral disc spaces are maintained. Endplate osteophyt es are seen throughout the mid and lower thoracic spine. SOFT TISSUE: Surgical clips are seen in the upper abdomen. IMPRESSION: Mild degenerative changes in the thoracic spine. DATA REPOSITORY: RADIATION DOSE DELIVERED:
== END 2021-07-29 00:40 ==
PROVIDERS: PCP Family Medicine; Visit Provider Nurse Practitioner
DX: M25.551 Pain in right hip (principal); M25.552 Pain in left hip; M16.0 Bilateral primary osteoarthritis of hip; M54.50 Low back pain, unspecified; M47.817 Spondylosis without myelopathy or radiculopathy, lumbosacral region; M54.6 Pain in thoracic spine; M47.814 Spondylosis without myelopathy or radiculopathy, thoracic region
CPT/HCPCS: 73521; 72072; 72110

== ENCOUNTER 2021-07-31 01:05 | Outpatient (CLI) | payer BC, SELFPAY ==
--- NOTE | 2021-07-31 06:15 | DI.RAD_ITS ---
Exam(s) XR CERVICAL SPINE COMP 4-5V EXAM: XR CERVICAL SPINE COMP 4-5V CLINICAL HISTORY: left hand numbness, arm pain,m79.602. TECHNIQUE: 2D digital imaging was performed. COMPARISON: No exams were available for comparison FINDINGS: No evidence of fracture or listhesis. No offset of the spinal laminar line. There is mild disc spac e narrowing at C3-4 level. Other disc spaces exhibit normal height. No Luschka joint osteophytes ev ident on the oblique views. No cervical ribs. Bone density is normal. No osseous lesions. There minimal facet arthropathy. IMPRESSION: Mild disc space narrowing evident at C3-4 disc space level. No other radiographic findings. No abno rmal straightening of the cervical curvature. DATA REPOSITORY: RADIATION DOSE DELIVERED:
== END 2021-07-31 01:25 ==
PROVIDERS: PCP Family Medicine; Visit Provider Nurse Practitioner
DX: M79.602 Pain in left arm (principal); R20.2 Paresthesia of skin; M54.2 Cervicalgia; M50.31 Other cervical disc degeneration, high cervical region
CPT/HCPCS: 72050

== ENCOUNTER 2021-08-30 01:15 | Outpatient (CLI) | payer BC, SELFPAY ==
[2021-08-30 08:42] LABS: Abs Immature Grans 0.02 10^3/uL (0.0-0.06); Absolute Basophil Count 0.08 10^3/uL (0.0-0.2); Absolute Eosinophil Count 0.32 10^3/uL (0.0-0.7); Absolute Lymphocyte Count 1.83 10^3/uL (1.2-3.4); Absolute Monocyte Count 1.01 10^3/uL (0.1-0.8); Absolute Neutrophil Count 5.96 10^3/uL (1.2-6.7); Basophils % 0.9; Eosinophils % 3.5; HCT 41.7 % (40.0-50.0); HGB 13.7 g/dL (13.5-17.5); Immature Grans % 0.2; Lymphocytes % 19.8; MCH 29.3 pg (27.0-33.0); MCHC 32.9 % (32.0-36.0); MCV 89.1 fL (80-95); MPV 9.4 fL (8.0-11.0); Neutrophils % 64.6; Nucleated RBC 0 %; Platelet Count 403 10^3/uL (130-400); RBC 4.68 10^6/uL (4.36-5.78); RDW-SD 45.3 fL; WBC 9.22 10^3/uL (4.4-10.8)
[2021-08-30 10:15] LABS: ALT 51 U/L (16-63); AST 24 U/L (15-37); Albumin 3.8 g/dL (3.4-5.0); Alkaline Phosphatase 118 U/L (46-116); Anion Gap 5.4 mmol/L (3-11); BUN 17 mg/dL (7-18); CO2 36.6 mmol/L (21.0-32.0); CREATININE 0.8 mg/dL (0.70-1.30); Calcium 9.2 mg/dL (8.5-10.1); Chloride 101 mmol/L (98-107); Glucose 187 mg/dL (74-106); Potassium 4.2 mmol/L (3.5-5.1); Sodium 143 mmol/L (136-145); Total Protein 6.8 g/dL (6.4-8.2)
[2021-09-02 10:08] LABS: CA 19-9 <2 U/mL (<35)
== END 2021-08-30 01:16 | disposition home or self-care (01) ==
LOC: LBO 01:16
PROVIDERS: PCP Family Medicine; Visit Provider Internal Medicine Hematology & Oncology
DX: C25.1 Malignant neoplasm of body of pancreas (principal)
CPT/HCPCS: 36415; 80053; 85025; 86301

== ENCOUNTER 2021-10-18 18:39 | Outpatient (REF) | payer BC, SELFPAY ==
[2021-10-20 12:14] LABS: COVID-19 RT-PCR UVMMC Result Negative (Negative)
== END 2021-10-18 18:40 | disposition home or self-care (01) ==
LOC: NCHCN 18:39
PROVIDERS: Visit Provider Nurse Practitioner Family
DX: Z20.822 Contact with and (suspected) exposure to COVID-19 (principal); R09.89 Other specified symptoms and signs involving the circulatory and respiratory systems
CPT/HCPCS: U0003

== ENCOUNTER 2021-11-15 02:55 | Outpatient (CLI) | payer BC, SELFPAY ==
--- NOTE | 2021-11-15 09:52 | DI.RAD_ITS ---
Exam(s) XR SHOULDER LT COMPLETE 2+V EXAM: XR SHOULDER LT COMPLETE 2+V CLINICAL HISTORY: RADICULOPATHY AFFECTING THE ARM, M54.12. TECHNIQUE: 2D digital imaging was performed. COMPARISON: No exams were available for comparison FINDINGS: No evidence of fracture or dislocation or abnormal soft tissue calcifications in the subacromial spac e. The main finding here are significant osteoarthritic degenerative changes in the glenohumeral andreas nt with significant joint space narrowing and opposing osteophytes on the inferior articular surfaces of both humeral head and osseous glenoid. Mild degenerative changes noted in the AC joint. No osse ous lesions. IMPRESSION: Significant osteoarthritic degenerative changes in the glenohumeral joint. DATA REPOSITORY: RADIATION DOSE DELIVERED:
== END 2021-11-15 03:15 ==
PROVIDERS: Visit Provider Nurse Practitioner Family
DX: M54.12 Radiculopathy, cervical region (principal); M79.622 Pain in left upper arm; M19.012 Primary osteoarthritis, left shoulder
CPT/HCPCS: 73030

== ENCOUNTER 2021-12-09 02:18 | Outpatient (CLI) | payer BC, SELFPAY ==
[2021-12-09] MEDS: Breeza Beverage 473 ML BTL PO ×2 (10:00→10:01)
[2021-12-09] MEDS: Omnipaque 350 MG/ML 50 ML BTL IJ (10:00)
[2021-12-09 10:05] LABS: Abs Immature Grans 0.03 10^3/uL (0.0-0.06); Absolute Basophil Count 0.08 10^3/uL (0.0-0.2); Absolute Eosinophil Count 0.25 10^3/uL (0.0-0.7); Absolute Lymphocyte Count 1.96 10^3/uL (1.2-3.4); Absolute Monocyte Count 0.98 10^3/uL (0.1-0.8); Absolute Neutrophil Count 6.26 10^3/uL (1.2-6.7); Basophils % 0.8; Eosinophils % 2.6; HCT 46.1 % (40.0-50.0); HGB 14.8 g/dL (13.5-17.5); Immature Grans % 0.3; Lymphocytes % 20.5; MCH 28.8 pg (27.0-33.0); MCHC 32.1 % (32.0-36.0); MCV 89.7 fL (80-95); MPV 9.4 fL (8.0-11.0); Monocytes % 10.3; Neutrophils % 65.5; Nucleated RBC 0 %; Platelet Count 402 10^3/uL (130-400); RBC 5.14 10^6/uL (4.36-5.78); RDW 13.6 % (11.8-14.1); RDW-SD 44.8 fL; WBC 9.56 10^3/uL (4.4-10.8)
[2021-12-09 10:21] LABS: ALT 65 U/L (16-63); AST 29 U/L (15-37); Albumin 4.3 g/dL (3.4-5.0); Alkaline Phosphatase 133 U/L (46-116); Anion Gap 5.8 mmol/L (3-11); BUN 17 mg/dL (7-18); Bilirubin, Total 1.3 mg/dL (0.2-1.0); CO2 33.2 mmol/L (21.0-32.0); CREATININE 0.9 mg/dL (0.70-1.30); Calcium 9.9 mg/dL (8.5-10.1); Chloride 102 mmol/L (98-107); Glucose 203 mg/dL (74-106); Sodium 141 mmol/L (136-145); Total Protein 7.9 g/dL (6.4-8.2)
--- NOTE | 2021-12-09 11:50 | DI.CT_ITS ---
Exam(s) CT CHEST/ABD/PEL WO EXAM: CT CHEST/ABD/PEL WO CLINICAL HISTORY: CANCER OF PANCREAS C25.1. TECHNIQUE: Imaging Protocol: Axial computed tomography images with coronal and sagittal reformatted images were created and reviewed CONTRAST MATERIAL: Intravenous: none. Apparently there was a history of possible prior allergic patricia ction to CT contrast. Patient apparently not prepped with Benadryl and steroids. Oral: Yes. Oral contrast was administered for bowel opacification COMPARISON: CT CT CHEST/ABD/PEL W from 11/07/[address] CHEST/ABD/PEL W from 08/24/[address] ABD/PELVIS W CONTRAST from 05/30/2021 FINDINGS: CHEST: LUNGS: There are no concerning lung nodules and there are no pleural effusions. No significant focal findings in the trachea and mainstem bronchi. MEDIASTINUM: No obvious hilar nor mediastinal adenopathy. Partially visualized thyroid appears unrema rkable. CARDIAC: Heart size is normal. There is no pericardial effusion.Caliber of the thoracic aorta is wit hin normal limits. OSSEOUS: No significant osseous lesions.. ABDOMEN: There is no ascites. LIVER: There are no obvious focal hepatic lesions evident of this noninfused study. Previously prese nt hypodensity in the medial aspect of the inferior right hepatic lobe is unchanged from the most rec ent study but was not evident on prior studies and although does not have the appearance of a typical metastatic lesion is still of concern. There are no obvious new lesions in the liver evident on thi s noninfused study. GALLBLADDER/BILIARY: The gallbladder is again noted to be surgically absent. CBD is not dilated. PANCREAS: Again noted is evidence of subtotal pancreatectomy. The remaining pancreatic head and unci ino process appear unchanged. There is no new abnormal tissue in the pancreatic bed. No obvious ne w vascular encasement. No new regional lymphadenopathy evident. SPLEEN: Is also noted to be surgically absent. ADRENALS: There are no significant adrenal masses. KIDNEYS: No calculi nor hydronephrosis. No obvious solid renal masses. Tiny benign cysts noted in the inferior pole of the left kidney, unchanged. ABDOMINAL AORTA: Mild fusiform dilatation but no prominent aneurysm. Maximum external diameter of th e abdominal aorta is 2.8 cm. There is generalized arterial megaly of the common iliac arteries again noted. LYMPH NODES: There is no obvious new retroperitoneal adenopathy. No obvious new para-aortic adenopat hy. ABDOMINAL WALL/GI: No evidence of significant anterior abdominal wall nor inguinal hernia. No evidence of bowel obstruction. PELVIS: LYMPH NODES: There is no intrapelvic nor inguinal adenopathy. GI: No evidence of appendicitis.No evidence of sigmoid diverticulitis. URINARY BLADDER: There is diffuse uniform thickening of the bladder wall. REPRODUCTIVE: Prostate size normal. Seminal vesicles unremarkable. OSSEOUS: No significant osseous lesions. IMPRESSION: 1. No evidence of intrathoracic metastatic disease. No new lung nodules nor pleural effusions nor in trathoracic adenopathy evident. 2. Subtotal pancreatic resection again noted. The remaining pancreatic head and uncinate process maxwell ear unchanged from the most recent CT study and there is no new abnormal tissue evident in the pancre atic bed. No new obvious adenopathy. No vascular encasement. 3. Spleen is again noted be surgically absent. 4. Previously described hypodensity in the medial right hepatic lobe is unchanged. Although this do es not have typical appearance of a metastatic lesion, given the fact that it was new on the previous examination this is therefore suspicious for metastatic disease. 5. There is no ascites. RADIATION DOSE DELIVERED: 1,378.75mGy.cm Total DLP DATA REPOSITORY: All CT scans at this facility are submitted to the National Radiology Data Registry (NRDR) Dose Index Registry (DIR) with the [employer] (ACR). RADIATION OPTIMIZATION: All CT scans at this facility use at least one of these dose optimization te chniques: automated exposure control; mA and/or kV adjustment per patient size (includes targeted exa ms where dose is matched to clinical indication); or iterative reconstruction.
[2021-12-11 09:23] LABS: CA 19-9 4 U/mL (<35)
== END 2021-12-09 02:38 ==
PROVIDERS: Internal Medicine Hematology & Oncology; PCP Nurse Practitioner Family; Visit Provider Nurse Practitioner Family
DX: C25.1 Malignant neoplasm of body of pancreas (principal)
CPT/HCPCS: 71250; 80053; 74176; 85025; 86301; Q9967

== ENCOUNTER 2021-12-18 09:10 | Outpatient (REF) | payer BC, SELFPAY | END 2021-12-18 09:11 | disposition home or self-care (01) | LOC: NCHCN 09:10 | PROVIDERS: PCP Nurse Practitioner Family; Visit Provider Nurse Practitioner Family | DX: R09.3 Abnormal sputum (principal) | CPT/HCPCS: 87070; 87205 ==

== ENCOUNTER 2022-02-13 03:38 | Outpatient (CLI) | payer BC, SELFPAY ==
--- NOTE | 2022-02-13 10:00 | NS.NUTBLAN_ITS ---
Frederick was referred for diabetes self education. PMH: s/p treatment for pancreatic cancer, whipple procedure 2020, HLD, HTN. 71 inches 215 lbs BMI 30. Weight prior to cancer treatment 270 lbs, lowest weight 180 lbs Recent Labs: 01/28/22 A1C: 9.5%, chol: 153, LDL: 89, HDL: 48, Tri Meds: statin, lantus 56 units BID, aspart 6-15 units at meals, MVI, D3, Creon Diet recall: smoothie, lunch: burger, dinner: pasta, drinks about 24 oz juice daily, diluted, avoids large amounts of protein and fat in diet due to malabsorption Frederick reports that he has had 3/4 of pancreas removed, along with gall bladder and spleen. He occasionally gets malabsorption with high fat meals. His lowest weight was 180 lbs, has been steadily increasing in weight in last year as his appetite came back. His blood sugar control has deteriorated in last couple of months despite increasing his long acting insulin and taking meal time insulin. He has a difficult time including large amounts of protein and fats to meals. Frederick reports that he does not want to change his dietary habits, he wants to enjoy his food and focuses on each day. He is aware of the foods that are causing higher blood sugars but wants to continue to consume them. He reports that he has noticed recently that some of the insulin he injects is not absorbed, he wonders if its due to needle size. He also reports that he often forgets to take both doses of lantus insulin and often does not take insulin at lunch as he is busy. He is not interested in an insulin pump or continuous glucose monitor. He has noticed that his fasting blood sugars are going up (as high as 300 mg/dl this week) and does not have hypoglycemia. Assessment: Suspect that Frederick may be developing lipoatrophy/hyertrophy with frequent injections of high volume of insulin which may explain higher blood sugar numbers. Recommend site rotation and inject at 90 degree angle. May need to go back to 8 mm needle and change to a concentrated insulin. Would trial inhalled insulin such as Alfrezza for lunch time administration (recommend 8 or 12 units at meals). Plan: Recommend changing long acting insulin to Tresiba U200 with once day dosing Return to 8 mm needle Carb to insulin ratio: 1:10 rapid insulin to carb ratio- limit carb intake to up to 65 g carb per meal, upto 30 g carb per snack Consider Alfrezza inhaler at meal times - 8 or 12 unit cartridges. Correction factor: 1: 30 with aspart will follow up by phone in one week.
== END 2022-02-13 03:39 | disposition home or self-care (01) ==
LOC: DS 03:39
PROVIDERS: PCP Nurse Practitioner Family; Visit Provider Dietitian, Registered
DX: E11.9 Type 2 diabetes mellitus without complications (principal); Z79.4 Long term (current) use of insulin; Z85.07 Personal history of malignant neoplasm of pancreas; Z71.3 Dietary counseling and surveillance
CPT/HCPCS: 97802

== ENCOUNTER 2022-03-25 03:21 | Outpatient (CLI) | payer BC, SELFPAY | END 2022-03-25 03:22 | disposition home or self-care (01) | LOC: LBO 03:22 | PROVIDERS: Visit Provider Internal Medicine Hematology & Oncology ==

== ENCOUNTER 2022-03-31 03:00 | Outpatient (CLI) | payer BC, SELFPAY ==
[2022-03-31 14:58] LABS: Abs Immature Grans 0.03 10^3/uL (0.0-0.06); Absolute Basophil Count 0.08 10^3/uL (0.0-0.2); Absolute Eosinophil Count 0.15 10^3/uL (0.0-0.7); Basophils % 0.7; Eosinophils % 1.3; HCT 42.1 % (40.0-50.0); HGB 13.9 g/dL (13.5-17.5); Immature Grans % 0.3; MCH 28.9 pg (27.0-33.0); MCV 88 fL (80-95); MPV 9.5 fL (8.0-11.0); Monocytes % 7.3; Neutrophils % 74.4; Platelet Count 380 10^3/uL (130-400); RBC 4.81 10^6/uL (4.36-5.78); RDW 13.2 % (11.8-14.1); RDW-SD 42.4 fL; WBC 11.85 10^3/uL (4.4-10.8)
[2022-03-31 14:59] LABS: Absolute Monocyte Count 0.87 10^3/uL (0.1-0.8); Absolute Neutrophil Count 8.82 10^3/uL (1.2-6.7)
[2022-03-31 17:33] LABS: ALT 52 U/L (16-63); AST 31 U/L (15-37); Albumin 3.9 g/dL (3.4-5.0); Alkaline Phosphatase 123 U/L (46-116); Anion Gap 9.2 mmol/L (3-11); BUN 17 mg/dL (7-18); Bilirubin, Total 1.2 mg/dL (0.2-1.0); CO2 34.8 mmol/L (21.0-32.0); Calcium 9.2 mg/dL (8.5-10.1); Chloride 97 mmol/L (98-107); Glucose 281 mg/dL (74-106); Potassium 4.3 mmol/L (3.5-5.1); Sodium 141 mmol/L (136-145)
[2022-03-31 23:39] LABS: CEA 1.8 ng/mL (See Note)
== END 2022-03-31 03:01 | disposition home or self-care (01) ==
LOC: LBO 03:01
PROVIDERS: Visit Provider Internal Medicine Hematology & Oncology
DX: C25.1 Malignant neoplasm of body of pancreas (principal)
CPT/HCPCS: 36415; 80053; 82378; 85025

== ENCOUNTER 2022-08-19 04:06 | Outpatient (CLI) | payer BC, SELFPAY ==
[2022-08-19 09:28] LABS: Abs Immature Grans 0.06 10^3/uL (0.0-0.06); Absolute Basophil Count 0.08 10^3/uL (0.0-0.2); Absolute Neutrophil Count 9.83 10^3/uL (1.2-6.7); Basophils % 0.6; Eosinophils % 2.2; HCT 43.9 % (40.0-50.0); HGB 14.6 g/dL (13.5-17.5); Immature Grans % 0.4; Lymphocytes % 15.6; MCHC 33.3 % (32.0-36.0); MCV 87 fL (80-95); MPV 9.4 fL (8.0-11.0); Monocytes % 8.2; Platelet Count 376 10^3/uL (130-400); RBC 5.03 10^6/uL (4.36-5.78); RDW 13.9 % (11.8-14.1); RDW-SD 44.2 fL; WBC 13.47 10^3/uL (4.4-10.8)
[2022-08-19 09:55] LABS: ALT 47 U/L (16-63); AST 29 U/L (15-37); Albumin 3.9 g/dL (3.4-5.0); Alkaline Phosphatase 154 U/L (46-116); Anion Gap 4.8 mmol/L (3-11); BUN 15 mg/dL (7-18); CO2 32.2 mmol/L (21.0-32.0); CREATININE 0.9 mg/dL (0.70-1.30); Calcium 9.3 mg/dL (8.5-10.1); Chloride 99 mmol/L (98-107); Glucose 246 mg/dL (74-106); Potassium 4.1 mmol/L (3.5-5.1); Sodium 136 mmol/L (136-145); Total Protein 7.6 g/dL (6.4-8.2)
[2022-08-20 09:16] LABS: CA 19-9 <2 U/mL (<35)
== END 2022-08-19 04:07 | disposition home or self-care (01) ==
PROVIDERS: PCP Nurse Practitioner Family; Visit Provider Internal Medicine Hematology & Oncology
DX: C25.1 Malignant neoplasm of body of pancreas (principal)
CPT/HCPCS: 36415; 80053; 85025; 86301

== ENCOUNTER 2022-09-19 03:16 | Outpatient (CLI) | payer BC, SELFPAY ==
[2022-09-19 08:48] LABS: Abs Immature Grans 0.03 10^3/uL (0.0-0.06); Absolute Basophil Count 0.07 10^3/uL (0.0-0.2); Absolute Eosinophil Count 0.16 10^3/uL (0.0-0.7); Absolute Lymphocyte Count 2.03 10^3/uL (1.2-3.4); Absolute Monocyte Count 0.95 10^3/uL (0.1-0.8); Absolute Neutrophil Count 7.14 10^3/uL (1.2-6.7); Basophils % 0.7; Eosinophils % 1.5; HCT 41.7 % (40.0-50.0); Immature Grans % 0.3; Lymphocytes % 19.6; MCH 29.2 pg (27.0-33.0); MCHC 33.6 % (32.0-36.0); MCV 87 fL (80-95); MPV 9.3 fL (8.0-11.0); Monocytes % 9.2; Neutrophils % 68.7; Platelet Count 384 10^3/uL (130-400); RBC 4.79 10^6/uL (4.36-5.78); RDW 13.6 % (11.8-14.1); RDW-SD 43.5 fL; WBC 10.38 10^3/uL (4.4-10.8)
[2022-09-19 09:04] LABS: ALT 51 U/L (16-63); AST 29 U/L (15-37); Albumin 3.8 g/dL (3.4-5.0); Alkaline Phosphatase 123 U/L (46-116); Anion Gap 6.2 mmol/L (3-11); BUN 18 mg/dL (7-18); Bilirubin, Total 1.2 mg/dL (0.2-1.0); CO2 30.8 mmol/L (21.0-32.0); Calcium 9.3 mg/dL (8.5-10.1); Chloride 101 mmol/L (98-107); Estimated GFR 90.56 (mL/min/1.73m2); Glucose 256 mg/dL (74-106); Potassium 4.1 mmol/L (3.5-5.1); Sodium 138 mmol/L (136-145); Total Protein 7.4 g/dL (6.4-8.2)
[2022-09-22 10:13] LABS: CA 19-9 <2 U/mL (<35)
== END 2022-09-19 03:17 | disposition home or self-care (01) ==
LOC: LBO 03:16
PROVIDERS: PCP Nurse Practitioner Family; Visit Provider Internal Medicine Hematology & Oncology
DX: C25.1 Malignant neoplasm of body of pancreas (principal)
CPT/HCPCS: 36415; 80053; 85025; 86301

== ENCOUNTER 2022-09-22 00:23 | Outpatient (CLI) | payer BC, SELFPAY ==
[2022-09-22] MEDS: Inhaler, Assist Device 1 EACH MC (09:23)
[2022-09-22] MEDS: Albuterol HFA 18 GM 200 PUFF INH IH (09:23)
--- NOTE | 2022-09-23 07:36 | W.PFT ---
Date of service: 09/22/22 Time of Service: 08:02 Pulmonary Function Test Result Requesting Provider Monika Han Indications: Chronic cough Interpretation Spirometry: There is no airflow limitation. There is no significant bronchodilator response. Lung Volumes: Normal lung volumes Diffusion Capacity: Normal diffusion Airway Pressure: Normal airways resistance Impression Normal pulmonary function testing Clinical Correlation therefore is recommended.
== END 2022-09-22 00:24 | disposition home or self-care (01) ==
PROVIDERS: PCP Nurse Practitioner Family; Visit Provider Nurse Practitioner Family
DX: R05.3 Chronic cough (principal); Z87.891 Personal history of nicotine dependence
CPT/HCPCS: 94060; 94726; 94729

== ENCOUNTER 2022-10-14 02:22 | Outpatient (CLI) | payer OTHER, BC, SELFPAY ==
--- NOTE | 2022-10-14 | DI.RAD_ITS ---
Exam(s) XR LUMBAR SPINE AP, LAT EXAM: XR LUMBAR SPINE AP, LAT CLINICAL HISTORY: STATE SEVERITY OF DEGENERATION,LOW BACK PAIN,Z02.71,DISABILITY DETERMINATIO. TECHNIQUE: 2D digital imaging was performed. COMPARISON: CR XR LUMBAR SPINE COMPLETE from 07/29/2021 FINDINGS: 3 views No evidence of fracture, listhesis, or pars defects. No disc space narrowing although there is mild anterior osseous lipping at L3-4 level which may indicate an element of degenerative disc disease charles pite normal disc height. Indeed, there does appear to be slight narrowing of the right-side of the d isc space when compared to the left side, as seen on the frontal view. There is resultant mild scoli osis convex left. Some degenerative change in the facet joints lower 2 levels noted. SI joints appe ar unremarkable. Vascular calcifications noted in the aorta IMPRESSION: Findings as above. Asymmetric narrowing of the right-side of the L3-4 disc space which probably holli cates prior disc herniation at this level and is a new finding when compared to 07/29/2021. If clini deana indicated follow-up MRI can be performed. Incidentally noted is vascular calcification in the abdominal aorta and iliac arteries in this 52-yea r-old patient. DATA REPOSITORY: RADIATION DOSE DELIVERED:
== END 2022-10-14 02:42 ==
PROVIDERS: PCP Nurse Practitioner Family; Visit Provider Pediatrics Pediatric Rheumatology
DX: M54.59 Other low back pain (principal); Z02.71 Encounter for disability determination; M51.36 Other intervertebral disc degeneration, lumbar region; M47.816 Spondylosis without myelopathy or radiculopathy, lumbar region; M41.86 Other forms of scoliosis, lumbar region
CPT/HCPCS: 72100

== ENCOUNTER 2022-11-19 18:37 | Emergency (ER) | payer BC, SELFPAY ==
[2022-11-19 18:42] VITALS: BP 141/79; PULSE 94; RESP 20; TEMP 36.3; O2SAT 97
--- NOTE | 2022-11-19 18:55 | DI.CT_ITS ---
Exam(s) CT LUMBAR SPINE RECONS CT ABDOMEN PELVIS WO EXAM: CT ABDOMEN PELVIS WO and CT lumbar spine recons CLINICAL HISTORY: Lower back pain, Abd pain,. TECHNIQUE: Imaging Protocol: Axial computed tomography images with coronal and sagittal reformatted images were created and reviewed. COMPARISON: CT CT CHEST/ABD/PEL WO from 12/09/2021 CR XR LUMBAR SPINE AP, LAT from 10/14/2022 FINDINGS: ABDOMEN: Lung Bases: Coronary artery calcifications are present. Liver: Normal density. No measurable mass. Gallbladder and biliary tract: Status post cholecystectomy. No biliary ductal dilatation. Pancreas: There has been a subtotal pancreatectomy. The remaining pancreatic head and uncinate proce ss are unremarkable. Spleen: Status post splenectomy. Kidneys: There is again seen at atrophy of the inferior pole of the left kidney.No radiodense stones or obstructive uropathy. There is a 0.7 cm simple cyst in the right kidney. No follow-up is recommen ded. Adrenal glands: No mass is seen. Lymph nodes: Within normal limits. Abdominal Aorta: Abdominal portion non-dilated. Atherosclerosis is present. PELVIS: Bladder:Symmetric distention, no gross wall thickening. Bowel: No obstruction or bowel wall thickening. No evidence of appendicitis. Peritoneal cavity: No ascites, collection or mesenteric inflammatory response. No free air. Reproductive organs: Unremarkable as visualized. Bones: Within normal limits. Soft Tissues: Within normal limits. CT lumbar spine recons: There is normal alignment of the lumbar spine. No spondylolysis or spondylol isthesis is seen. There is a mild left convex curvature of the lumbar spine. Small endplate osteoph ytes are seen at multiple levels of the lumbar spine. No significant disc space narrowing is present . There are mild degenerative changes of the facets at L5-S1 and L4-L5. The bones are normally mine ralized. There is bilateral neural foraminal narrowing from L3-4 through L5-S1. There is mild narro wing of the central spinal canal at L3-L4 due to the diffuse disc bulge. IMPRESSION: 1. No acute abdominal pelvic process. 2. No acute fracture or subluxation in the lumbar spine. 3. Multilevel degenerative changes in the lumbar spine particularly from L3-4 through L5-S1 as descri bed above. RADIATION DOSE DELIVERED: Total DLP DATA REPOSITORY: All CT scans at this facility are submitted to the National Radiology Data Registry (NRDR) Dose Index Registry (DIR) with the [employer] (ACR). RADIATION OPTIMIZATION: All CT scans at this facility use at least one of these dose optimization te chniques: automated exposure control; mA and/or kV adjustment per patient size (includes targeted exa ms where dose is matched to clinical indication); or iterative reconstruction.
--- NOTE | 2022-11-19 19:00 | ED.GENADUL_ITS ---
Discharge Plan Disposition Patient Disposition: Home Discharge Details Clinical Impression: Spinal stenosis of lumbar region at multiple levels, Lumbago Primary Care Provider: KANE LOMELI ED Provider: Elina Francisco Home Meds and New Rx's Prescriptions: Continued (DME) ReliOn Prime Test Strips Strip See Rx Instructions .ROUTE .MEDSUPPLY Qty: 100 12RF Rx Instructions: to test BS 6 x's daily, on insulin E 11.9 for fluctuating blood sugars, goal AIC <7.0 (DME) lancets [ReliOn Ultra Thin Plus Lancets] Misc See Rx Instructions .ROUTE .MEDSUPPLY Qty: 200 12RF Rx Instructions: to test BS 6 x's daily, on insulin E 11.9 for fluctuating blood sugars, goal AIC <7.0 hydrochlorothiazide 25 mg tablet 25 mg PO DAILY Qty: 90 3RF lisinopril 40 mg tablet 40 mg PO DAILY Qty: 90 3RF Tresiba FlexTouch U-200 200 unit/mL (3 mL) insulin pen 100 unit subcut DAILY Qty: 15 3RF atorvastatin 40 mg tablet 40 mg PO DAILY Qty: 90 3RF cholecalciferol (vitamin D3) 1,000 unit capsule 1,000 unit PO DAILY Creon 36,000-114,000- 180,000 unit capsule,delayed release(DR/EC) 1 cap PO TID Rx Instructions: administer with meals and/or snacks aspirin [Adult Low Dose Aspirin] 81 mg tablet,delayed release (DR/EC) 81 mg PO DAILY ibuprofen 600 mg tablet 600 mg PO Q6H PRN (DME) pen needle, diabetic [Lite Touch Insulin Pen [place]] 31 gauge x 3/16 needle See Rx Instructions .ROUTE .MEDSUPPLY Qty: 100 12RF Rx Instructions: to administer insulin tid E 11.9 goal AIC <7.0 to fit Novalog pens directed famotidine 20 mg tablet 20 mg PO DAILY PRN insulin lispro [Humalog KwikPen Insulin] 100 unit/mL insulin pen 1 sliding scale dose SC TID MDD 20 units Qty: 75 3RF Rx Instructions: BS 140-159, 1 unit; 160-179, 2 units; 180-199, 3 units, 200-219 4 units, 220- 239, 5 units, 240-259 6 units, 260-279 7 units, 280-299 8 units, >300 9 units and call office Culturelle 10 billion cell Capsule 1 cap PO DAILY Discharge Instructions Instructions: Lumbar Spinal Stenosis (ED) Additional Instructions: CT shows spinal stenosis from L3-S1. This is presumed degenerative disc disease. Take the tramadol as needed for moderate to severe pain. Please take Tylenol or Ibuprofen with food every 4-6 hours as needed for pain and swelling. Alternate ice and heat. You may apply topical Biofreeze, Voltaren or similar. You may also take your previously prescribed gabapentin if this helps with the pain. Return to the ER for any loss of bowel or bladder control, unable to urinate or have a bowel movement, numbness in your groin area or worsening numbness, weakness, tingling in your legs. Follow up with primary care provider in 3-5 days. Return to ED sooner if any worsening or concerns. Increase oral fluids. Stand Alone Forms: Physical Therapy Referral Referrals: KANE LOMELI, IT APPLICATION ADMINISTRATOR [Primary Care Provider] - 1 week Medical Decision Making 52-year-old male with past medical history of abdominal aortic aneurysm repair, pancreatic cancer, PTSD, asthma, hyperlipidemia hypertension type 2 diabetes with diabetic neuropathy appendectomy, pancreatectomy, cholecystectomy, hernia repair and splenectomy presents to the ER with chief complaint of lower back pain which has worsened over the last week, worse over the last few days with some radiation to his right flank and periumbilical area. He denies any problems urinating or burning with urination, denies any diarrhea. He reports that he is been having yellowish type stools denies any nausea vomiting. He has been taking ibuprofen 800 mg with little to no relief. He reports approximately week ago he did some heavy lifting and the back pain gradually progressed. CT abdomen pelvis , L-spine ordered. Patient did have lumbar spine x-rays in September 2022 which showed some narrowing of L3 and L4. Urinalysis ordered. Valium, Tylenol. Differential diagnosis includes but not limited to kidney stone, musculoskeletal pain, AAA, gastroenteritis, CT abdomen pelvis within normal limits nothing acute, CT L-spine shows L3-S1 spinal stenosis, Discussed results with patient and family verbalized understanding, on reevaluation he he is laying in bed reports feeling somewhat better while lying down. Patient given a tramadol here in the department and a couple tablets to go. Physical therapy referral was given. Discussed red flags such as loss of bowel or bladder control, worsening numbness weakness or trouble urinating or having bowel movement. This text was generated using WeLinkation system, please disregard any oddities of phrase or misspellings. Medical Records Medical records reviewed: Yes I reviewed the patient's medical records. Imaging Data Radiologic Study: Imaging: CT Scan Radiologist's impression: FINDINGS: Bones/joints: No acute fracture. Loss of lumbar lordosis is presumed degenerative. Moderate central canal stenosis at L3-L4 Multilevel severe foraminal stenosis most pronounced at L5-S1 Soft tissues: Unremarkable. IMPRESSION: No acute findings. Moderate central canal stenosis at L3-L4 Multilevel severe foraminal stenosis most pronounced at L5-S1 Thank you for allowing us to participate in the care of your patient. Dictated and Authenticated by: Tushar Bernal MD Radiologic Study #2: Imaging: CT Scan Radiologist's impression: COMPARISON: CT CHEST/ABD/PEL WO 12/09/2021 11:25 AM FINDINGS: Liver: Normal. No mass. Gallbladder and bile ducts: Prior cholecystectomy. No ductal dilation. Pancreas: Fatty atrophy versus subtotal pancreatectomy No ductal dilation. Spleen: Prior splenectomy. Adrenal glands: Normal. No mass. Kidneys and ureters: Normal. No hydronephrosis. Stomach and bowel: Unremarkable. No obstruction. No mucosal thickening. Appendix: No evidence of appendicitis. Intraperitoneal space: Unremarkable. No free air. No significant fluid collection. Vasculature: Surgical clips along the celiac axis. No abdominal aortic aneurysm. Lymph nodes: Unremarkable. No enlarged lymph nodes. Urinary bladder: Unremarkable as visualized. Reproductive: Unremarkable as visualized. HYATT, DENIZ Bones/joints: Degenerative changes in the spine. No acute fracture. Soft tissues: Unremarkable. IMPRESSION: No acute findings. Nonurgent findings as noted Thank you for allowing us to participate in the care of your patient. Dictated and Authenticated by: Tushar Bernal MD Lab Data Lab results reviewed: Yes I reviewed the patient's lab results. Labs: Laboratory Tests Range/Units 11/19/22 19:10 Urine Color (Yellow) Yellow Urine Clarity (Clear) Clear Urine pH (5-8) 5.5 Ur Specific [place] (1.005-1.025) >= 1.030 H Urine Protein (Negative) mg/dL Negative Urine Ketones (Negative) mg/dL Negative Urine Blood (Negative) Negative Urine Nitrite (Negative) Negative Urine Bilirubin (Negative) Negative Urine Urobilinogen (Up to 0.2) mg/dL 0.2 Ur Leukocyte Esterase (Negative) Negative Urine Glucose (Negative) mg/dL Negative HPI General Mode of arrival: ambulatory . Date/Time Provider Initiated Documentation: 11/19/22 18:47 . Limitations to Documentation: no limitations . Information obtained by: patient, family, RN notes reviewed and old records reviewed . HPI Narrative: 52-year-old male with past medical history of abdominal aortic aneurysm repair, pancreatic cancer, PTSD, asthma, hyperlipidemia hypertension type 2 diabetes with diabetic neuropathy appendectomy, pancreatectomy, cholecystectomy, hernia repair and splenectomy presents to the ER with chief complaint of lower back pain which has worsened over the last week, worse over the last few days with some radiation to his right flank and periumbilical area. He denies any problems urinating or burning with urination, denies any diarrhea. He reports that he is been having yellowish type stools denies any nausea vomiting. He has been taking ibuprofen 800 mg with little to no relief. He reports approximately week ago he did some heavy lifting and the back pain gradually progressed. Related Data Home Medications Medication Instructions Recorded Confirmed cholecalciferol (vitamin D3) 25 1,000 unit PO DAILY 08/10/19 11/19/22 mcg (1,000 unit) capsule blood sugar diagnostic (ReliOn #100 ea 09/09/19 11/19/22 Prime Test Strips) lancets (ReliOn Ultra Thin Plus #200 ea 09/09/19 11/19/22 Lancets) Lactobacillus rhamnosus GG 10 1 cap PO DAILY 11/10/19 11/19/22 billion cell capsule (Culturelle) aspirin 81 mg tablet,delayed 81 mg PO DAILY 05/10/20 11/19/22 release (Adult Low Dose Aspirin) ibuprofen 600 mg tablet 600 mg PO Q6H PRN 05/10/20 11/19/22 [id number] 1 cap PO TID 05/10/20 11/19/22 36,000-114,000-180,000 unit capsule,delay rel (Creon) pen needle, diabetic 31 gauge x #100 ea 02/05/21 11/19/2216 (Lite Touch Insulin Pen [place]) insulin degludec 200 unit/mL (3 100 unit (0.5 mL) subcut DAILY #15 05/07/22 11/19/22 mL) subcutaneous pen (Tresiba SYRGS FlexTouch U-200 insulin) atorvastatin 40 mg tablet 40 mg PO DAILY #90 tabs 05/12/22 11/19/22 famotidine 20 mg tablet 20 mg PO DAILY PRN 05/12/22 11/19/22 insulin lispro 100 unit/mL 1 sliding scale dose subcut TID 08/01/22 11/19/22 subcutaneous pen (Humalog KwikPen #75 mL (U-100) Insulin) hydrochlorothiazide 25 mg tablet 25 mg PO DAILY #90 tabs 09/01/22 11/19/22 lisinopril 40 mg tablet 40 mg PO DAILY #90 tabs 09/01/22 11/19/22 Previous Rx's Medication Instructions Recorded blood sugar diagnostic (ReliOn #100 ea 09/09/19 Prime Test Strips) lancets (ReliOn Ultra Thin Plus #200 ea 09/09/19 Lancets) pen needle, diabetic 31 gauge x #100 ea 02/05/2112/04 (Lite Touch Insulin Pen [place]) insulin degludec 200 unit/mL (3 100 unit (0.5 mL) subcut DAILY #15 05/07/22 mL) subcutaneous pen (Tresiba SYRGS FlexTouch U-200 insulin) atorvastatin 40 mg tablet 40 mg PO DAILY #90 tabs 05/12/22 insulin lispro 100 unit/mL 1 sliding scale dose subcut TID 08/01/22 subcutaneous pen (Humalog KwikPen #75 mL (U-100) Insulin) hydrochlorothiazide 25 mg tablet 25 mg PO DAILY #90 tabs 09/01/22 lisinopril 40 mg tablet 40 mg PO DAILY #90 tabs 09/01/22 Allergies Allergy/AdvReac Type Severity Reaction Status Date / Time iohexol Allergy Unknown Unverified 11/19/22 19:16 adhesive tape Allergy Verified 11/19/22 19:16 oxycodone [From Percocet] Allergy Verified 11/19/22 19:16 General Stated Complaint: Nk/Back Pain SEBASTIEN: 3 Review of Systems All systems reviewed & are unremarkable except as noted in HPI and below Cardiovascular Cardiovascular: Denies chest pain and Denies dyspnea Respiratory Respiratory: Denies dyspnea Gastrointestinal Gastrointestinal: Reports abdominal pain, Denies coffee ground emesis, Denies diarrhea, Denies nausea, Denies vomiting and Reports other (Reports yellowish stools) Genitourinary Genitourinary: Denies dysuria, Reports flank pain, Denies urinary frequency and Denies urinary hesitancy Musculoskeletal Musculoskeletal: Reports as per HPI, Reports abnormal gait, Reports back pain, Reports stiffness and Reports tingling (Right leg) Neurologic Neurologic: Reports abnormal gait and Reports tingling (Right leg) PFSH All Active Problems (Updated 11/19/22 @ 20:46 by Elina Francisco NP) Spinal stenosis of lumbar region at multiple levels (Acute) Lumbago (Acute) Chronic cough (Acute) History of pancreatic cancer (Chronic ~2018) S/p chemoradiation, partial pancreactectomy, splenectomy. Followed by [facility] [place] Type 2 diabetes mellitus with diabetic neuropathy (Chronic) Asplenia (Chronic) Essential hypertension (Chronic) Hyperlipidemia (Chronic) Carpal tunnel syndrome on left (Chronic) Benign prostatic hyperplasia with lower urinary tract symptoms (Chronic) Chronic sinusitis (Chronic) Generalized anxiety disorder (Chronic) Osteoarthritis (Chronic) Major depressive disorder (Chronic) Dysthymic disorder (Chronic) Insomnia (Chronic) PTSD (post-traumatic stress disorder) (Chronic) Asthma (Chronic) Allergic rhinitis (Chronic) Hidradenitis suppurativa (Chronic) Vitamin D deficiency (Chronic) Medical History AAA (abdominal aortic aneurysm) S/p repair Adenocarcinoma of pancreas (~2018) S/p chemoradiation, partial pancreactectomy, splenectomy Alcohol abuse Erectile dysfunction Pilonidal cyst Surgical History History of adenoidectomy History of appendectomy (~2013) History of partial pancreatectomy (05/08/20) Partial [place] vein resection History of surgery right forearm tendon repair History of tonsillectomy (~1978) History of vasectomy S/P AAA repair (~2016) S/P cholecystectomy (05/08/20) S/P hernia repair (~1991) S/P splenectomy (05/08/20) S/P surgical removal of pilonidal cyst Family History Mother , 41 Breast cancer BRCA Hypertension Depression Father Depression Heart disease Hyperlipidemia Hypertension Sister Depression Hypertension Fallopian tube carcinoma Daughter Depression Maternal Grandfather Hypertension Hyperlipidemia Heart disease Maternal Grandmother Heart disease Stroke Hypertension Hyperlipidemia Paternal Grandfather Heart disease Hypertension Hyperlipidemia Paternal Grandmother Colon cancer Diabetes Heart disease Stroke Hypertension Hyperlipidemia Social History Smoking/Tobacco Use Status: Former Tobacco Use tobacco type: cigarettes Quit Date: 04/21/15 Pack-years: 45 Tobacco: How many years used: 30 Second Hand Exposure: Yes Smoking risk assessment performed?: Yes Alcohol Intake: former Drug use: Daily Substance use type: marijuana Details: No IV Drug Use Adopted: No Caregiver/Support person: No Foster care: No Household members: spouse Housing: house Number of Children: 1 Communication Needs: None Do you need help understanding health information?: Never current occupation: Unemployed Pets and animals: Yes Sexually active: No Do you think of yourself as: straight/heterosexual Current gender identity: male What is your relationship status?: How often do you talk on the phone with friends or family?: never How often do you get together with friends or relatives?: never Do you belong to any clubs or organized social groups?: no Panel score (0-1 are the most socially isolated patients): 1 What type of physical activity do you participate in: walking Duration: 30-45 minutes/day Frequency: 3-4 times per week Shyla/Confucianism: No preference Special shyla needs: No Seatbelt use: always Helmet use: No Drive intox or ride w/intox bus van driver: No Working smoke detector in home: Yes Fire extinguisher in home: Yes Carbon monox detector in home: Yes Do you feel safe at home: Yes Do you feel safe in your relationship?: Yes Exam Narrative Exam Narrative: Constitutional: Alert and oriented x3. Appears stated age. Normal body habitus. Head: Normocephalic, no trauma. Eyes: Pupils PERRL, Red reflex noted, EOM's intact. Eyelids symmetrical without lesions, discharge, or swelling. ENT: Bilateral TM's WNL, External ear normal to inspection, no mastoid TTP, swelling, or erythema, Nasal turbinates WNL, no nasal discharge. Normal dentiti on, Posterior pharynx WNL, no exudate. Chest: RRR, Normal S1, S2, distal pulses intact. Resp: Lungs clear to auscultation bilaterally, no wheezes, rales, or rhonchi. Abdomen: Soft, non-distended, Normoactive bowel sounds all 4 quads. Musculoskeletal: Normal gait, 5/5 strength to all four extremities. Skin: No suspicious rashes or lesions. Capillary refill less than 2 sec. Neurologic: Cranial nerves II-XII intact. Alert and oriented x 3. Motor: No deficits noted. Sensory: Intact bilaterally all 4 extremities. Reflexes: DTR's intact bilaterally.. Hematologic/Lymphatic: No ecchymosis, no lymphadenopathy. Course Vital Signs Vital signs: Vital Signs Temperature 36.3 C L 11/19/22 18:42 Pulse 94 H 11/19/22 18:42 Respiratory Rate 20 11/19/22 18:42 Blood Pressure 141/79 H 11/19/22 18:42 Pulse Oximetry 97 11/19/22 18:42 Temperature 36.3 C L 11/19/22 18:42 Temperature Source Tympanic 11/19/22 18:42 Pulse 94 H 11/19/22 18:42 Respiratory Rate 20 11/19/22 18:42 Blood Pressure 141/79 H 11/19/22 18:42 Blood Pressure Position Sitting 11/19/22 18:42 Pulse Oximetry 97 11/19/22 18:42 Oxygen Delivery Method Room Air 11/19/22 18:42 Oxygen Flow Rate 0 11/19/22 18:42 Pain Level 8 11/19/22 18:42
[2022-11-19] MEDS: diazePAM 5 MG TAB PO (19:05)
[2022-11-19] MEDS: Acetaminophen 500 MG TAB 1000 MG PO (19:05)
[2022-11-19 19:37] LABS: Bilirubin Negative (Negative); Blood Negative (Negative); Clarity Clear (Clear); Glucose Negative (Negative); Ketones Negative (Negative); Leukocyte Esterase Negative (Negative); Nitrite Negative (Negative); Specific Gravity >= 1.030 (1.005-1.025); Urobilinogen 0.2 mg/dL (Up to 0.2); pH 5.5 (5-8)
--- NOTE | 2022-11-19 20:19 | DI.VRAD_ITS ---
PROCEDURE INFORMATION: Exam: CT Lumbar Spine Without Contrast Exam date and time: 11/19/2022 7:48 PM Age: 52 years old Clinical indication: Low back pain; Additional info: Lower back pain, abd pain, TECHNIQUE: Imaging protocol: Computed tomography of the lumbar spine without contrast. Radiation optimization: All CT scans at this facility use at least one of these dose optimization techniques: automated exposure control; mA and/or kV adjustment per patient size (includes targeted exams where dose is matched to clinical indication); or iterative reconstruction. COMPARISON: CT CHEST/ABD/PEL WO 12/09/2021 11:25 AM FINDINGS: Bones/joints: No acute fracture. Loss of lumbar lordosis is presumed degenerative. Moderate central canal stenosis at L3-L4 Multilevel severe foraminal stenosis most pronounced at L5-S1 Soft tissues: Unremarkable. IMPRESSION: No acute findings. Moderate central canal stenosis at L3-L4 Multilevel severe foraminal stenosis most pronounced at L5-S1 Dictated and Authenticated by: Tushar Bernal MD. Ordering:SAE Antoine MD
--- NOTE | 2022-11-19 20:19 | DI.VRAD_ITS ---
PROCEDURE INFORMATION: Exam: CT Abdomen And Pelvis Without Contrast Exam date and time: 11/19/2022 7:48 PM Age: 52 years old Clinical indication: Abdominal pain; Generalized; Additional info: Lower back pain, abd pain, TECHNIQUE: Imaging protocol: Computed tomography of the abdomen and pelvis without contrast. 3D rendering (Not supervised by radiologist): MIP and/or 3D reconstructed images were created by the technologist. Radiation optimization: All CT scans at this facility use at least one of these dose optimization techniques: automated exposure control; mA and/or kV adjustment per patient size (includes targeted exams where dose is matched to clinical indication); or iterative reconstruction. COMPARISON: CT CHEST/ABD/PEL WO 12/09/2021 11:25 AM FINDINGS: Liver: Normal. No mass. Gallbladder and bile ducts: Prior cholecystectomy. No ductal dilation. Pancreas: Fatty atrophy versus subtotal pancreatectomy No ductal dilation. Spleen: Prior splenectomy. Adrenal glands: Normal. No mass. Kidneys and ureters: Normal. No hydronephrosis. Stomach and bowel: Unremarkable. No obstruction. No mucosal thickening. Appendix: No evidence of appendicitis. Intraperitoneal space: Unremarkable. No free air. No significant fluid collection. Vasculature: Surgical clips along the celiac axis. No abdominal aortic aneurysm. Lymph nodes: Unremarkable. No enlarged lymph nodes. Urinary bladder: Unremarkable as visualized. Reproductive: Unremarkable as visualized. Bones/joints: Degenerative changes in the spine. No acute fracture. Soft tissues: Unremarkable. IMPRESSION: No acute findings. Nonurgent findings as noted Dictated and Authenticated by: Tushar Bernal MD. Ordering:SAE Antoine MD
[2022-11-19] MEDS: traMADol 50 MG TAB PO (21:00)
[2022-11-19 21:08] VITALS: BP 121/74; PULSE 77; RESP 18; TEMP 36.4; O2SAT 94
== END 2022-11-19 21:08 | disposition home or self-care (01) ==
PROVIDERS: Emergency Provider Registered Nurse Emergency; PCP Nurse Practitioner Family
DX: M48.061 Spinal stenosis, lumbar region without neurogenic claudication (principal)
CPT/HCPCS: 99284; 74176; 81003

== ENCOUNTER 2022-11-26 15:32 | Outpatient (REF) | payer BC, SELFPAY ==
[2022-11-26 16:17] LABS: Abs Immature Grans 0.04 10^3/uL (0.0-0.06); Absolute Basophil Count 0.06 10^3/uL (0.0-0.2); Absolute Lymphocyte Count 1.96 10^3/uL (1.2-3.4); Absolute Monocyte Count 0.94 10^3/uL (0.1-0.8); Absolute Neutrophil Count 8.59 10^3/uL (1.2-6.7); Basophils % 0.5; Eosinophils % 1.7; HCT 40.8 % (40.0-50.0); HGB 13.7 g/dL (13.5-17.5); Immature Grans % 0.3; Lymphocytes % 16.6; MCH 29.1 pg (27.0-33.0); MCHC 33.6 % (32.0-36.0); MCV 87 fL (80-95); Neutrophils % 72.9; Platelet Count 383 10^3/uL (130-400); RDW 13.7 % (11.8-14.1); RDW-SD 44.3 fL; WBC 11.79 10^3/uL (4.4-10.8)
[2022-11-28 11:48] LABS: IgE 98 IU/mL (<158)
[2022-11-28 19:33] LABS: Aspergillus Fumigatus IgE <0.35 kU/L
== END 2022-11-26 15:33 | disposition home or self-care (01) ==
LOC: LBN 15:32
PROVIDERS: PCP Nurse Practitioner Family; Visit Provider Student in an Organized Health Care Education/Training Program
DX: R05.3 Chronic cough (principal)
CPT/HCPCS: 82785; 85025; 86003; 86606

== ENCOUNTER 2022-12-09 03:05 | Outpatient (CLI) | payer BC, SELFPAY ==
[2022-12-09] MEDS: Albuterol HFA 18 GM 200 PUFF INH IH (14:50)
[2022-12-09] MEDS: Inhaler, Assist Device 1 EACH MC (14:50)
[2022-12-09] MEDS: Methacholine 100 MG VIAL IH (14:50)
--- NOTE | 2022-12-10 07:15 | W.PFT ---
Date of service: 12/09/22 Time of Service: 13:07 Pulmonary Function Test Result Requesting Provider Charo Indications: Chronic Cough Interpretation Spirometry: No airflow limitation. There was a 7% decline in FEV1% with administration of 16mg/mL methacholine. Impression Negative methacholine challenge. Clinical Correlation therefore is recommended.
== END 2022-12-09 03:06 | disposition home or self-care (01) ==
LOC: RT 03:05
PROVIDERS: PCP Nurse Practitioner Family; Visit Provider Student in an Organized Health Care Education/Training Program
DX: R05.3 Chronic cough (principal)
CPT/HCPCS: 94060; 94070; J7674

== ENCOUNTER 2022-12-10 17:03 | Outpatient (REF) | payer BC, SELFPAY ==
[2022-12-10 11:10] LABS: Source Nasal/Nares
[2022-12-10 12:08] LABS: COVID-19 PCR Negative (Negative)
== END 2022-12-10 17:04 | disposition home or self-care (01) ==
LOC: LBN 17:03
PROVIDERS: PCP Nurse Practitioner Family; Visit Provider Physician Assistant Surgical
DX: Z20.822 Contact with and (suspected) exposure to COVID-19 (principal); Z01.818 Encounter for other preprocedural examination
CPT/HCPCS: 87635

== ENCOUNTER 2022-12-11 06:21 | Day surgery (SDC) | payer BC, SELFPAY ==
[2022-12-11] VITALS (9 sets, daily range): BP systolic 116–147; BP diastolic 77–96; PULSE 64–79; RESP 8–20; TEMP 36.2–36.5; O2SAT 94–98; BMI 31.3
--- NOTE | 2022-12-11 06:53 | W.ANESPRE ---
General Info Date of Service Date Performed: 12/11/22 Height: 5 ft 11 in Weight: 101.8 kg Body Mass Index (BMI): 31.3 Surgical Procedure: Operation Date: 12/11/22 07:40 Proposed Procedure Side Surgeon p Bronchoscopy wBAL Marci Mancilla MD Meds Allergies and Home Medications Allergies Allergy/AdvReac Type Severity Reaction Status Date / Time iohexol Allergy Unknown Unverified 11/26/22 14:40 adhesive tape Allergy Verified 11/26/22 14:40 oxycodone [From Percocet] Allergy Verified 11/26/22 14:40 Home Medication Medication Instructions Recorded cholecalciferol (vitamin D3) 25 1,000 unit PO DAILY 08/10/19 mcg (1,000 unit) capsule blood sugar diagnostic (ReliOn #100 ea 09/09/19 Prime Test Strips) lancets (ReliOn Ultra Thin Plus #200 ea 09/09/19 Lancets) Lactobacillus rhamnosus GG 10 1 cap PO DAILY 11/10/19 billion cell capsule (Culturelle) ibuprofen 600 mg tablet 600 mg PO Q6H PRN 05/10/20 dmrmho-[id number]-ugqciqj 1 cap PO TID 05/10/20 36,000-114,000-180,000 unit capsule,delay rel (Creon) pen needle, diabetic 31 gauge x #100 ea 02/05/2112/04 (Lite Touch Insulin Pen [place]) insulin degludec 200 unit/mL (3 100 unit (0.5 mL) subcut DAILY #15 05/07/22 mL) subcutaneous pen (Tresiba SYRGS FlexTouch U-200 insulin) atorvastatin 40 mg tablet 40 mg PO DAILY #90 tabs 05/12/22 famotidine 20 mg tablet 20 mg PO DAILY PRN 05/12/22 insulin lispro 100 unit/mL 1 sliding scale dose subcut TID 08/01/22 subcutaneous pen (Humalog KwikPen #75 mL (U-100) Insulin) hydrochlorothiazide 25 mg tablet 25 mg PO DAILY #90 tabs 09/01/22 lisinopril 40 mg tablet 40 mg PO DAILY #90 tabs 09/01/22 aspirin 81 mg capsule 81 mg PO DAILY 12/11/22 gabapentin 300 mg capsule 300 mg PO DAILY 12/11/22 Current Visit Medications: Current Medications Generic Name Dose Route Start Last Admin Trade Name Freq PRN Reason Stop Dose Admin Ringer's Solution 1,000 mls @ 80 mls/hr 12/11/22 06:00 IV 01/09/23 23:59 INFUSION [facility] IV Miscellaneous Supplies 1 each 12/11/22 06:00 Iv Access IV 01/09/23 23:59 DIRECTED GABRIELLA Sodium Chloride 0 ml 12/11/22 06:00 Normal Saline Flush 10 Ml Syr IV 01/09/23 23:59 PRN PRN Sodium Chloride 0 ml 12/11/22 06:00 Normal Saline 10 Ml Vial IJ 01/09/23 23:59 DIRECTED PRN Sterile Water 0 ml 12/11/22 06:00 Water,Injection,Sterile 10 Ml Vial IJ 01/09/23 23:59 DIRECTED PRN PFSH Active Problems Active Problems: Problem Status Onset Code Asthma J45.909 PTSD (post-traumatic stress disorder) F43.10 Insomnia G47.00 Benign prostatic hyperplasia with lower urinary tract symptoms N40.1 Hyperlipidemia E78.5 Dysthymic disorder F34.1 Allergic rhinitis J30.9 Major depressive disorder F32.9 Generalized anxiety disorder F41.1 Essential hypertension I10 History of pancreatic cancer ~2019 Z85.07 Asplenia Q89.01 Osteoarthritis M19.90 Vitamin D deficiency E55.9 Hidradenitis suppurativa L73.2 Chronic sinusitis J32.9 Carpal tunnel syndrome on left G56.02 Type 2 diabetes mellitus with diabetic neuropathy E11.40 Chronic cough R05.3 Spinal stenosis of lumbar region at multiple levels M48.061 Lumbago M54.50 Personal history of nicotine dependence Z87.891 Encounter for screening for COVID-19 Z11.52 Medical History Medical History AAA (abdominal aortic aneurysm) S/p repair Adenocarcinoma of pancreas (~2018) S/p chemoradiation, partial pancreactectomy, splenectomy Alcohol abuse Erectile dysfunction Pilonidal cyst Type 1 diabetes mellitus Surgical History Surgical History History of adenoidectomy History of appendectomy (~2013) History of partial pancreatectomy (05/08/20) Partial Port Portal vein resection History of surgery right forearm tendon repair History of tonsillectomy (~1978) History of vasectomy S/P AAA repair (~2016) S/P cholecystectomy (05/08/20) S/P hernia repair (~1991) S/P splenectomy (05/08/20) S/P surgical removal of pilonidal cyst Tobacco Smoking/Tobacco Use Status: Former Tobacco Use Passive smoking exposure: Yes Second hand exposure: Yes Alcohol Alcohol Intake: former Substance Use Substance use: Daily Substance use type: marijuana Details: No IV Drug Use Vital Signs and Lab Results Vital Signs Most Recent Vital Signs in EMR: Most Recent Vital Signs Temp Pulse Resp BP Pulse Ox 36.4 C L 77 16 124/80 96 12/11/22 06:39 12/11/22 06:39 12/11/22 06:39 12/11/22 06:39 12/11/22 06:39 Lab Results Blood Type / Crossmatch: No Data to Display Complete Blood Count: White Blood Count 11.79 10^3/uL (4.4-10.8) H 11/26/22 15:15 Red Blood Count 4.70 10^6/uL (4.36-5.78) 11/26/22 15:15 Hemoglobin 13.7 g/dL (13.5-17.5) 11/26/22 15:15 Hematocrit 40.8 % (40.0-50.0) 11/26/22 15:15 Platelet Count 383 10^3/uL (130-400) 11/26/22 15:15 Complete Metabolic Panel: No Data to Display Liver Function Panel: No Data to Display Coagulation Panel: No Data to Display Cardiac Panel: No Data to Display Arterial Blood Gas: No Data to Display Venous Blood Gas: No Data to Display Pancreas Panel: No Data to Display Thyroid Panel: No Data to Display Infectious Disease: Coronavirus (COVID-19)(PCR) Negative (Negative) 12/10/22 09:05 Coronavirus 2019 Source Nasal/Nares 12/10/22 09:05 Blood Cultures: No Data to Display Toxicology Panel: No Data to Display Imaging and Studies Imaging and Studies Study information below may be from another EMR and interpreted by another provider. Please see original notes in EMR for more complete details. EKG Summary: 07/23/2021: Exam: Resting ECG Reason for Exam: heart attack? Patient Location: E HR:68 bpm ECG Measurements Heart Rate [address] 150 P 54 QRSd 100 QRS 66 QT 403 T27 QTc 428 Conclusion Sinus rhythm...normal P axis, V-rate 60- 99. Sinus. No STEMI. I have reviewed and interpreted ECG and agree with software generated interpretation. Pulmonary Function Summary: 12/10/2022: Pulmonary Function Test Result Requesting Provider Charo Indications: Chronic Cough Interpretation Spirometry: No airflow limitation. There was a 7% decline in FEV1% with administration of 16mg/mL methacholine. Impression Negative methacholine challenge. Clinical Correlation therefore is recommended. Anesthesia Assessment and Plan Anesthesia History Personal History: No History of Anesthesia Complications Family History: No Family History of Anesthesia Complications Exercise Tolerance Exercise Tolerance: Metabolic Equivalents>4 Pertinent Negatives Pertinent Negatives: No Symptoms of GERD Cardiac & Pulmonary Exam Cardiac Exam: Normal S1/S2 Heart Sounds Pulmonary Exam: Clear Bilateral Breath Sounds Implantable Cardiac Device Does patient have a Pacemaker or an ICD?: No Airway Exam Known Difficult Airway: No Mallampati Class: 2 Mouth Opening: Normal (> 3cm) Thyromental Distance: Greater than 3 cm Neck Range of Motion: Full ROM Neck Circumference: Thick Teeth Condition: Generalized Poor Dentition and Edentulous (Upper) ASA Classification ASA Score: ASA 3 Emergency Case?: No NPO Status NPO Status: NPO Clears >2 hours, Solids >8 hours Anesthesia Plan Resuscitation Status: Full Code Anesthesia Technique: General Anesthesia Airway Planned: Endotracheal Tube Monitors Used: Standard Monitors and SedLine
[2022-12-11] MEDS: Lactated Ringers 1,000 ML 80 ML IV (07:02)
[2022-12-11] MEDS: Lidocaine 1% Pres-Free 5 ML VIAL (07:58)
--- NOTE | 2022-12-11 07:59 | PAPNONF_PTH ---
PATIENT: Frederick Ochoa LOC: [facility] U#:[id number] AGE/SX: 52/M ROOM: RE12/11/[address]: Marci Mancilla MD : 1970 BED: DIS: 12/11/2022 SPEC #: [id number] RECD: 12/11/22 12:43 STATUS: FRANCIE REQ #: [id number] JEFF: 12/11/22 07:[address]: Marci Mancilla DEPT: [facility] Cytology RECD BY: Sadie Mcdaniels ENTERED: 12/11/22 12:44 SP TYPE: PAPANDREW BELLO DR: KANE LOMELI, NGUYEN Tissues: 1 - BODY FLUID CYTO(NOT S/U/N/EM)[facility] 2 - BODY FLUID CYTO(SPUTUM/URINE)[facility] Procedures: BODY FLUID CYTO(NOT SPU/UR/NIP/ENDOM)[facility] BODY FLUID CYTO(URINE/SPUTUM) SPECIAL STAIN 1 Comments: [id number] (REFRIGERATED)
[2022-12-11] MEDS: ACETAMINOPHEN 1,000 MG/100 ML BTL 400 MG IVPB (08:35)
--- NOTE | 2022-12-11 10:01 | W.ANESPOSTOP ---
Postoperative Evaluation Date, Time and Location Date Performed: 12/11/22 Time Performed: 10:02 Patient Location: Day Surgery Unit Vital Signs Most Recent Imported Vital Signs: Most Recent Vital Signs Temp Pulse Resp BP Pulse Ox 36.5 C 71 16 144/96 H 96 12/11/22 09:49 12/11/22 09:49 12/11/22 09:49 12/11/22 09:49 12/11/22 09:49 Pain Score Most Recent Pain Score: Most Recent Pain Score Pain Level 0 12/11/22 09:49 Assessment Mental Status: Awake (Alert & Oriented to Patient Baseline) Airway and Respiratory Function: Patent airway with normal (patient baseline) respiratory exam Cardiovascular Function: Hemodynamically Stable Hydration Status: Adequately Hydrated Nausea & Vomiting: No Nausea or Vomiting Pain: Pt. Denies Any Pain Peripheral Nerve Block: Patient did not receive a nerve block
--- NOTE | 2022-12-11 15:26 | W.PM.OP ---
Date of service: 12/11/22 Time of Service: 07:30 Operative Note Operative Note Refer to Anesthesia Record Procedure Description: Bronchoscopy Indication:abnormal sputum, chronic cough Procedure performed: Flexible bronchoscopy with BAL Sedation plan: General anesthesia Informed consent was obtained after the risks and benefits or the procedure were discussed. Anesthesia sedated and intubated the patient. A proper and complete OR compliant time out was performed. The therapeutic 6.2mm Olympus bronchoscope was inserted through the endotracheal tube. The bronchoscope was inserted into the airways, where 3cc in total of 1% topical lidocaine was used the anesthetize the airways. The trachea was midline and without lesion or injury. The mucosa appeared normal and there were no signs of tracheomalacia. The marta was sharp. All bronchial subsegments were visualized within each lobe and showed normal anatomy. Throughout the airways clear to white mucus was present with specks of dark brown, green and black present. No erythema. A bronchoalveolar lavage was performed in the RUL. A total of 120cc of saline was administered with a return of 30cc. The fluid was slightly cloudy in appearance. The bronchoscope was then removed and the case terminated. The patient was taken to PACU in stable condition. Samples collected: RUL BAL, bronchial washings Testing ordered: cell diff, cultures, viral panel, cytopath with silver stain Complications:None Marci Mancilla MD Pulmonary & Critical Care Medicine
[2022-12-11 22:52] LABS: Adenovirus DNA Result Negative (Negative); Metapneumovirus RNA Result Negative (Negative); Parainfluenza Type1 RNA Result Negative (Negative); Parainfluenza Type2 RNA Result Negative (Negative); Parainfluenza Type3 RNA Result Negative (Negative); Parainfluenza Type4 RNA Result Negative (Negative); Rhinovirus RNA Result Negative (Negative)
[2022-12-12 08:41] LABS: Lymphocytes Fluid Relative 2 %; Neutrophils Fluid Relative 17 %
[2022-12-12 08:42] LABS: Mono/Macrophage Fluid Relative 81 %
[2023-01-08 10:03] LABS: Fungus Smear No Fungi Seen
== END 2022-12-11 10:11 | disposition home or self-care (01) ==
PROVIDERS: PCP Nurse Practitioner Family; Visit Provider Student in an Organized Health Care Education/Training Program
PROC: 0BJ08ZZ Inspection of Tracheobronchial Tree, Via Natural or Artificial Opening Endoscopic (ICD-10-PCS; CPT 31622; principal; 2022-12-11 07:30)
DX: R05.3 Chronic cough (principal); F17.210 Nicotine dependence, cigarettes, uncomplicated; R84.6 Abnormal cytological findings in specimens from respiratory organs and thorax
CPT/HCPCS: 31624; 80162; 87070; 87102; 87116; 87205; 87206; 87632; 88104; 88312; J0131; J1100; J2250; J2405; J2704

== ENCOUNTER 2022-12-12 14:25 | Outpatient (CLI) | payer BC, SELFPAY ==
[2022-12-12 12:06] LABS: Abs Immature Grans 0.07 10^3/uL (0.0-0.06); Absolute Basophil Count 0.03 10^3/uL (0.0-0.2); Absolute Eosinophil Count 0.02 10^3/uL (0.0-0.7); Absolute Monocyte Count 1.49 10^3/uL (0.1-0.8); Basophils % 0.2; Eosinophils % 0.1; HGB 14.4 g/dL (13.5-17.5); Immature Grans % 0.4; Lymphocytes % 15.4; MCH 28.8 pg (27.0-33.0); MCHC 33.5 % (32.0-36.0); MCV 86 fL (80-95); Monocytes % 8.8; Neutrophils % 75.1; Platelet Count 404 10^3/uL (130-400); RDW 13.9 % (11.8-14.1); RDW-SD 43.7 fL; WBC 16.91 10^3/uL (4.4-10.8)
[2022-12-12 12:22] LABS: ALT 51 U/L (16-63); AST 20 U/L (15-37); Albumin 3.8 g/dL (3.4-5.0); Alkaline Phosphatase 119 U/L (46-116); Anion Gap 7.9 mmol/L (3-11); BUN 16 mg/dL (7-18); CO2 32.1 mmol/L (21.0-32.0); Calcium 9.5 mg/dL (8.5-10.1); Chloride 102 mmol/L (98-107); Estimated GFR 90.56 (mL/min/1.73m2); Glucose 289 mg/dL (74-106); Potassium 3.8 mmol/L (3.5-5.1); Sodium 142 mmol/L (136-145); Total Protein 7.4 g/dL (6.4-8.2)
[2022-12-15 11:31] LABS: CA 19-9 <2 U/mL (<35)
== END 2022-12-12 14:26 | disposition home or self-care (01) ==
LOC: LBO 14:26
PROVIDERS: PCP Nurse Practitioner Family; Visit Provider Internal Medicine Hematology & Oncology
DX: C25.0 Malignant neoplasm of head of pancreas (principal)
CPT/HCPCS: 36415; 80053; 85025; 86301

== ENCOUNTER 2022-12-29 13:55 | Outpatient (REF) | payer BC, SELFPAY ==
[2022-12-29 15:15] LABS: ALT 45 U/L (16-63); AST 26 U/L (15-37); Albumin 4.1 g/dL (3.4-5.0); Alkaline Phosphatase 137 U/L (46-116); Anion Gap 7.1 mmol/L (3-11); BUN 19 mg/dL (7-18); Bilirubin, Total 0.9 mg/dL (0.2-1.0); CO2 31.9 mmol/L (21.0-32.0); Calcium 9.8 mg/dL (8.5-10.1); Chloride 101 mmol/L (98-107); Estimated GFR 90.56 (mL/min/1.73m2); Glucose 148 mg/dL (74-106); Potassium 4.4 mmol/L (3.5-5.1); Sodium 140 mmol/L (136-145); Total Protein 7.2 g/dL (6.4-8.2)
[2022-12-31 00:53] LABS: Voriconazole, S 3.8 mcg/mL (1.0 - 5.5)
== END 2022-12-29 13:56 | disposition home or self-care (01) ==
LOC: LBN 13:55
PROVIDERS: PCP Nurse Practitioner Family; Visit Provider Student in an Organized Health Care Education/Training Program
DX: B44.1 Other pulmonary aspergillosis (principal)
CPT/HCPCS: 80053; 80299

== ENCOUNTER 2023-01-05 15:54 | Outpatient (CLI) | payer BC, SELFPAY ==
[2023-01-05 17:02] LABS: ALT 35 U/L (16-63); AST 24 U/L (15-37); Albumin 3.6 g/dL (3.4-5.0); Alkaline Phosphatase 117 U/L (46-116); Anion Gap 5.5 mmol/L (3-11); BUN 18 mg/dL (7-18); Bilirubin, Total 0.4 mg/dL (0.2-1.0); CO2 31.5 mmol/L (21.0-32.0); CREATININE 0.9 mg/dL (0.70-1.30); Calcium 9.5 mg/dL (8.5-10.1); Chloride 102 mmol/L (98-107); Estimated GFR 102.76 (mL/min/1.73m2); Glucose 274 mg/dL (74-106); Sodium 139 mmol/L (136-145); Total Protein 6.9 g/dL (6.4-8.2)
== END 2023-01-05 15:55 | disposition home or self-care (01) ==
LOC: LBO 15:57
PROVIDERS: PCP Nurse Practitioner Family; Visit Provider Student in an Organized Health Care Education/Training Program
DX: B44.1 Other pulmonary aspergillosis (principal); R05.3 Chronic cough; Z87.891 Personal history of nicotine dependence; I10 Essential (primary) hypertension
CPT/HCPCS: 36415; 80053

== ENCOUNTER 2023-01-20 13:53 | Outpatient (CLI) | payer BC, SELFPAY ==
[2023-01-20 12:13] LABS: ALT 51 U/L (16-63); AST 25 U/L (15-37); Albumin 3.6 g/dL (3.4-5.0); Alkaline Phosphatase 119 U/L (46-116); Anion Gap 4.8 mmol/L (3-11); BUN 14 mg/dL (7-18); Bilirubin, Total 0.5 mg/dL (0.2-1.0); CO2 36.2 mmol/L (21.0-32.0); CREATININE 0.9 mg/dL (0.70-1.30); Calcium 9.4 mg/dL (8.5-10.1); Chloride 103 mmol/L (98-107); Estimated GFR 102.76 (mL/min/1.73m2); Glucose 172 mg/dL (74-106); Potassium 4.1 mmol/L (3.5-5.1); Sodium 144 mmol/L (136-145); Total Protein 7.3 g/dL (6.4-8.2)
== END 2023-01-20 13:54 | disposition home or self-care (01) ==
LOC: LBO 14:02
PROVIDERS: PCP Nurse Practitioner Family; Visit Provider Student in an Organized Health Care Education/Training Program
DX: B44.1 Other pulmonary aspergillosis (principal); R05.3 Chronic cough; Z87.891 Personal history of nicotine dependence; I10 Essential (primary) hypertension; E11.40 Type 2 diabetes mellitus with diabetic neuropathy, unspecified
CPT/HCPCS: 36415; 80053

== ENCOUNTER 2023-02-10 02:42 | Outpatient (CLI) | payer BC, SELFPAY ==
[2023-02-11 20:14] LABS: Aspergillus Fumigatus IgE <0.10 kU/L (<0.70); Cladosporium IgE <0.10 kU/L (<0.70); Cockroach IgE 0.27 kU/L (<0.70); Curvularia Lunata, IgE <0.10 kU/L (<0.70); D Farinae IgE <0.10 kU/L (<0.70); D Pteronyssinus IgE <0.10 kU/L (<0.70); Epicoccum purpurascens IgE <0.10 kU/L (<0.70); Fusarium moniliforme, IgE <0.10 kU/L (<0.70); House Dust/Greer Lab, IgE <0.10 kU/L (<0.70); Ovomucoid IgE <0.10 kU/L (<0.70); Penicillium chrysogenum IgE <0.10 kU/L (<0.70); Stemphyllium IgE <0.10 kU/L (<0.70)
[2023-02-11 21:51] LABS: Botrytis Cinerea IgE <0.10 kU/L (<0.70); Cocklebur IgE <0.10 kU/L (<0.70)
[2023-02-13 17:17] LABS: Alter tenuis/alternata IgG <2.0 mcg/mL (<12.0); Aspergillus fumigatus IgG 44.9 mcg/mL (<46.0); Aureobasidium pullulans IgG 3.4 mcg/mL (<18.0); Micropolyspora faeni IgG <2.0 mcg/mL (<5.0); Penicillium Chrysogenum IgG 38.5 mcg/mL (<22.0); Phoma betae IgG 2.5 mcg/mL (<8.0)
== END 2023-02-10 02:43 | disposition home or self-care (01) ==
PROVIDERS: PCP Nurse Practitioner Family; Visit Provider Student in an Organized Health Care Education/Training Program
DX: B44.1 Other pulmonary aspergillosis (principal)
CPT/HCPCS: 36415; 86001; 86003; 86008

== ENCOUNTER 2023-02-19 11:47 | Outpatient (REF) | payer BC, SELFPAY ==
[2023-02-19 15:55] LABS: ALT 66 U/L (16-63); AST 35 U/L (15-37); Albumin 3.6 g/dL (3.4-5.0); Alkaline Phosphatase 106 U/L (46-116); BUN 12 mg/dL (7-18); Bilirubin, Total 0.7 mg/dL (0.2-1.0); CREATININE 0.8 mg/dL (0.70-1.30); Calcium 9.4 mg/dL (8.5-10.1); Chloride 101 mmol/L (98-107); Estimated GFR 106.48 (mL/min/1.73m2); FREE T4 0.84 ng/dL (0.76-1.46); Glucose 234 mg/dL (74-106); Potassium 4.6 mmol/L (3.5-5.1); Sodium 140 mmol/L (136-145); TSH (W/Ref FT4) 0.94 uIU/mL (0.36-3.74); Total Protein 6.8 g/dL (6.4-8.2)
== END 2023-02-19 11:48 | disposition home or self-care (01) ==
LOC: NCHCN 11:47
PROVIDERS: PCP Nurse Practitioner Family; Visit Provider Registered Nurse
DX: Z51.81 Encounter for therapeutic drug level monitoring (principal); F43.10 Post-traumatic stress disorder, unspecified
CPT/HCPCS: 80053; 80164; 84439; 84443

== ENCOUNTER 2023-03-25 02:44 | Outpatient (CLI) | payer BC, SELFPAY ==
[2023-03-25 13:22] LABS: Abs Immature Grans 0.05 10^3/uL (0.0-0.06); Absolute Basophil Count 0.09 10^3/uL (0.0-0.2); Absolute Lymphocyte Count 2.03 10^3/uL (1.2-3.4); Absolute Monocyte Count 0.91 10^3/uL (0.1-0.8); Absolute Neutrophil Count 7.74 10^3/uL (1.2-6.7); Basophils % 0.8; Eosinophils % 1.8; HCT 42.3 % (40.0-50.0); HGB 14.3 g/dL (13.5-17.5); Immature Grans % 0.5; Lymphocytes % 18.4; MCH 29.5 pg (27.0-33.0); MCHC 33.8 % (32.0-36.0); MCV 87 fL (80-95); MPV 9.5 fL (8.0-11.0); Monocytes % 8.3; Neutrophils % 70.2; Nucleated RBC 0.2 % (0.0-0.3); Platelet Count 370 10^3/uL (130-400); RBC 4.84 10^6/uL (4.36-5.78); RDW 14.6 % (11.8-14.1); RDW-SD 47.2 fL; WBC 11.02 10^3/uL (4.4-10.8)
[2023-03-25 13:55] LABS: ALT 98 U/L (16-63); AST 49 U/L (15-37); Albumin 3.6 g/dL (3.4-5.0); Alkaline Phosphatase 104 U/L (46-116); Anion Gap 8.3 mmol/L (3-11); BUN 18 mg/dL (7-18); Bilirubin, Total 0.8 mg/dL (0.2-1.0); CO2 29.7 mmol/L (21.0-32.0); Chloride 101 mmol/L (98-107); Estimated GFR 90.56 (mL/min/1.73m2); Glucose 253 mg/dL (74-106); Potassium 4.3 mmol/L (3.5-5.1); Sodium 139 mmol/L (136-145); Total Protein 7.3 g/dL (6.4-8.2)
[2023-03-26 10:21] LABS: IgA 151 mg/dL (85-499); IgG 762 mg/dL (610-1616); IgM 29 mg/dL (35-242)
[2023-03-26 21:12] LABS: Cat Epithelium IgE <0.10 kU/L (<0.70); Dog Dander IgE <0.10 kU/L (<0.70)
[2023-03-27 12:40] LABS: CA 19-9 9 U/mL (<35)
[2023-03-27 19:46] LABS: Blastomyces Ab, EIA Negative (Negative)
[2023-03-27 21:40] LABS: Coccidioides Ab Scr w/Reflex Negative (Negative)
[2023-03-30 17:13] LABS: Candida albicans IgG 77.7 mcg/mL (<52.0)
== END 2023-03-25 02:45 | disposition home or self-care (01) ==
PROVIDERS: Physician Assistant Surgical; PCP Nurse Practitioner Family; Visit Provider Internal Medicine Hematology & Oncology
DX: B44.1 Other pulmonary aspergillosis (principal)
CPT/HCPCS: 36415; 80053; 82784; 86001; 86612; 86635; 86698; 85025; 86003; 86301; 86606

== ENCOUNTER 2023-04-17 21:17 | Outpatient (REF) | payer BC, SELFPAY | END 2023-04-17 21:18 | disposition home or self-care (01) | LOC: LBN 21:17 | PROVIDERS: PCP Nurse Practitioner Family; Visit Provider Internal Medicine Critical Care Medicine | DX: R05.3 Chronic cough (principal) | CPT/HCPCS: 87102; 87116; 87206; 87070; 87205 ==

== ENCOUNTER → 2023-05-06 01:44 | Outpatient (CLI) | payer OTHER, SELFPAY ==
--- NOTE | 2023-05-06 09:30 | DI.RAD_ITS ---
Exam(s) XR KNEE RT 2V AP,LAT EXAM: XR KNEE RT 2V AP,LAT CLINICAL HISTORY: Z02.71 DISABILITY DETERMINATION, RT KNEE PAIN. TECHNIQUE: 2D digital imaging was performed. Three views. COMPARISON: CR XR KNEE RT 4V AP,LAT,DANNY,PAT from 06/06/2021 FINDINGS: BONES: No acute fracture is present. No bony destructive lesion is seen. Enthesophyte is noted at th e superior pole of the patella appear JOINTS: The knee is normally aligned. No joint effusion is seen. The joint spaces are maintained. No significant periarticular spurring. SOFT TISSUE: Normal. IMPRESSION: Unremarkable radiographs of the right knee. No significant degenerative changes. DATA REPOSITORY: RADIATION DOSE DELIVERED:
== END ==
PROVIDERS: PCP Nurse Practitioner Family; Visit Provider Pediatrics Pediatric Rheumatology
DX: Z02.71 Encounter for disability determination (principal); M25.561 Pain in right knee
CPT/HCPCS: 73560

== ENCOUNTER → 2023-05-07 04:51 | Outpatient (CLI) | payer BC, SELFPAY ==
[2023-05-07] MEDS: Gadoterate meglumine 20 ML VIAL IVP (08:59)
[2023-05-07] MEDS: Normal Saline Flush 10 ML SYR IVP (08:59)
--- NOTE | 2023-05-07 09:00 | DI.MRI_ITS ---
Exam(s) MR ANGIO BRAIN WO EXAM: MR ANGIO BRAIN WO CLINICAL HISTORY: PRIMARY EXERTIONAL DELACRUZ, G44.84 TECHNIQUE: Performed on 1.5 leo unit with fwzs-ur-bzygzs sequence. COMPARISON: No exams were available for comparison FINDINGS: ANTERIOR CIRCULATION: Both internal carotid arteries are patent in the skull base-carotid canals and are patent within the cavernous sinuses. The supraclinoid aspects of the internal carotid arteries are patent and nonaneury smal. Both A1 segments are patent as are the anterior cerebral arteries and there is no evidence of a neurysm at the level of the anterior communicating artery. Both middle cerebral arteries are patent without evidence of significant stenosis. No aneurysms evide nt in these vessels which are followed out to the sylvian fissure branches. POSTERIOR CIRCULATION: At this bulb base both vertebral arteries contribute to the formation of the basilar artery. The basi lar artery is patent without significant stenosis. Distally it gives off patent superior cerebellar a rteries. Above this level it terminates as patent posterior cerebral arteries. There are posterior co mmunicating arteries evident on both sides of the ijifqv-yy-Apkbeq. No aneurysms at these levels. Als o no aneurysm at the tip of the basilar artery. VENOUS SINUSES: There is no evidence of venous sinus thrombosis. IMPRESSION: 1. Patent intracranial arteries. 2. No evidence of venous sinus thrombosis. DATA REPOSITORY:
--- NOTE | 2023-05-07 09:00 | DI.MRI_ITS ---
Exam(s) MR ANGIO NECK WO CLINICAL HISTORY: PRIMARY EXERTIONAL DELACRUZ, G44.84. TECHNIQUE: Performed on 1.5 leo unit with [id number] sequence CONTRAST MATERIAL: IV Contrast: None COMPARISON: None. FINDINGS: Aortic arch anatomy is conventional. Anterior circulation: Both common carotid arteries ascend with normal luminal diameters. At the carotid bulbs and proximal ICAs there is mild plaque without evidence of hemodynamically significant stenosis. Also no dissect ion. Internal carotid arteries in the upper neck are demonstrated to be patent. Posterior circulation: Vertebral arteries originated conventional fashion off the subclavian arteries and ascend with equal normal diameters in the foramen transverse area with no evidence of significant stenosis, intralumina l thrombus, nor dissection. At the skull base both vertebral arteries contribute to the formation of the basilar artery. IMPRESSION: Patent carotid arteries in the neck. No hemodynamically significant stenosis. No dissection. The vertebral arteries in the neck. No intraluminal thrombus nor dissection or significant stenosis. DATA REPOSITORY:
--- NOTE | 2023-05-07 10:00 | DI.MRI_ITS ---
Exam(s) MR BRAIN WO/W EXAM: MR BRAIN WO/W CLINICAL HISTORY: PRIMARY EXERTIONAL DELACRUZ, G44.84 TECHNIQUE: Multiplanar multisequence MRI of the brain was performed. Both noninfused and contrast i nfused sequences were performed. IV Contrast injected was 20 cc Dotarem. COMPARISON: CT CT SINUS WO from 09/12/2022 MR MR ANGIO BRAIN WO from 05/07/2023 FINDINGS: CEREBRAL PARENCHYMA: No evidence of intracranial hemorrhage, mass effect nor shift of midline structu re. No extraaxial fluid collections. Ventricles are not enlarged nor shifted. There is no significant focal signal abnormality in the cerebellar hemispheres nor within the kyra, m idbrain, and thalami. There is no abnormal signal abnormality in the periventricular white matter. DWI: No areas of restricted diffusion to suggest acute ischemic event. SWI: No microhemorrhages evident. There are no ring enhancing lesions in the brain. There is no abnormal meningeal enhancement. PITUITARY GLAND: No mass nor parasellar abnormality. No obvious abnormality in the cavernous sinuses. FLOW VOIDS: The expected flow void are noted. No evidence of obvious aneurysm nor obvious vascular ma lformation. No evidence of obvious venous sinus thrombosis. PARANASAL SINUSES: The visualized paranasal sinuses appear unremarkable. ORBITS: No obvious abnormal findings. IMPRESSION: 1. No significant intracranial findings on this MRI scan of the brain. 2. No abnormal enhancing intracranial findings. There are no ring enhancing lesions in the brain and there is no abnormal meningeal enhancement. DATA REPOSITORY:
== END ==
PROVIDERS: PCP Nurse Practitioner Family; Visit Provider Nurse Practitioner Family
DX: G44.84 Primary exertional headache (principal)
CPT/HCPCS: 70544; 70547; 70553; 72141

== ENCOUNTER 2023-05-15 01:04 | Outpatient (CLI) | payer BC, SELFPAY ==
[2023-05-15 09:21] LABS: ALT 72 U/L (16-63); AST 37 U/L (15-37); Albumin 3.6 g/dL (3.4-5.0); Alkaline Phosphatase 140 U/L (46-116); BUN 14 mg/dL (7-18); Bilirubin, Total 0.8 mg/dL (0.2-1.0); Calcium 9.2 mg/dL (8.5-10.1); Chloride 102 mmol/L (98-107); Estimated GFR 90.56 (mL/min/1.73m2); Glucose 182 mg/dL (74-106); Sodium 141 mmol/L (136-145); Total Protein 7.3 g/dL (6.4-8.2)
[2023-05-18 11:00] LABS: CA 19-9 5 U/mL (<35)
== END 2023-05-15 01:05 | disposition home or self-care (01) ==
PROVIDERS: PCP Nurse Practitioner Family; Visit Provider Nurse Practitioner Family
DX: C25.0 Malignant neoplasm of head of pancreas (principal)
CPT/HCPCS: 36415; 80053; 86301

== ENCOUNTER 2023-05-19 10:21 | Outpatient (CLI) | payer BC, SELFPAY ==
--- NOTE | 2023-05-19 10:00 | DI.RAD_ITS ---
Exam(s) XR SHOULDER LT COMPLETE 2+V EXAM: XR SHOULDER LT COMPLETE 2+V CLINICAL HISTORY: left arm f/u. TECHNIQUE: 2D digital imaging was performed of the left shoulder. Two images were obtained. AP, Gr ashey, Y-view and axillary views were obtained. COMPARISON: CR XR SHOULDER LT COMPLETE 2+V from 11/15/2021 FINDINGS: BONES: No acute fracture is present. No bony destructive lesion is seen. JOINTS: No dislocation present. Degenerative changes are again seen at the glenohumeral joint with tammy int space narrowing and osteophytes present. The acromioclavicular joint is well maintained. SOFT TISSUE: Normal. IMPRESSION: Osteoarthritis of the glenohumeral joint. DATA REPOSITORY: RADIATION DOSE DELIVERED:
== END 2023-05-19 10:22 | disposition home or self-care (01) ==
LOC: DIORS 10:22
PROVIDERS: PCP Nurse Practitioner Family; Referring Provider Nurse Practitioner Family; Visit Provider Student in an Organized Health Care Education/Training Program
DX: M19.012 Primary osteoarthritis, left shoulder (principal)
CPT/HCPCS: 73030

== ENCOUNTER 2023-07-02 13:16 | Outpatient (CLI) | payer BC, SELFPAY ==
[2023-07-02 10:09] LABS: ALT 36 U/L (16-63); AST 25 U/L (15-37); Albumin 3.5 g/dL (3.4-5.0); Alkaline Phosphatase 128 U/L (46-116); BUN 14 mg/dL (7-18); Bilirubin, Total 0.7 mg/dL (0.2-1.0); CREATININE 0.9 mg/dL (0.70-1.30); Calcium 9.2 mg/dL (8.5-10.1); Chloride 102 mmol/L (98-107); Estimated GFR 102.76 (mL/min/1.73m2); Glucose 145 mg/dL (74-106); Sodium 138 mmol/L (136-145); Total Protein 7.2 g/dL (6.4-8.2)
[2023-07-03 10:46] LABS: CA 19-9 9 U/mL (<35)
== END 2023-07-02 13:17 | disposition home or self-care (01) ==
LOC: LBO 13:18
PROVIDERS: PCP Nurse Practitioner Family; Visit Provider Nurse Practitioner Family
DX: C25.0 Malignant neoplasm of head of pancreas (principal)
CPT/HCPCS: 36415; 80053; 86301

== ENCOUNTER → 2023-08-03 01:26 | Outpatient (CLI) | payer BC, SELFPAY ==
--- NOTE | 2023-08-03 15:09 | DI.RAD_ITS ---
Exam(s) XR ANKLE LT COMPLETE EXAM: XR ANKLE LT COMPLETE CLINICAL HISTORY: LT FOOT PAIN, M79.672, CHRONIC LT METATARSAL PAIN, BASELINE TECHNIQUE: 2D digital imaging was performed. Three views. COMPARISON: No exams were available for comparison FINDINGS: BONES: No acute fracture is present. No bony destructive lesion is seen. Heel spurs. JOINTS:The ankle mortise is normally aligned. Tibiotalar joint space is maintained. SOFT TISSUE: Normal. IMPRESSION: Heel spurs. DATA REPOSITORY: RADIATION DOSE DELIVERED:
--- NOTE | 2023-08-03 15:09 | DI.RAD_ITS ---
Exam(s) XR FOOT LT COMPLETE EXAM: XR FOOT LT COMPLETE CLINICAL HISTORY: LT FOOT PAIN, M79.672, CHRONIC LT METATARSAL ANKLE PAIN, BASELINE. TECHNIQUE: 2D digital imaging was performed. Three views. COMPARISON: No exams were available for comparison FINDINGS: BONES: No acute fracture is present. No bony destructive lesion is seen. Heel spurs. JOINTS: No dislocation present. Plantar arch is maintained. No significant degenerative changes. SOFT TISSUE: Normal. IMPRESSION: Heel spurs. DATA REPOSITORY: RADIATION DOSE DELIVERED:
--- NOTE | 2023-08-03 15:09 | DI.RAD_ITS ---
Exam(s) XR SHOULDER RT COMPLETE 2+V EXAM: XR SHOULDER RT COMPLETE 2+V CLINICAL HISTORY: RT SHOULDER PAIN, M25.511, CHRONIC PAIN, HX OA LT SHOULDER, BASELINE. TECHNIQUE: 2D digital imaging was performed. Five views. COMPARISON: CR XR SHOULDER LT COMPLETE 2+V from 05/19/2023 FINDINGS: BONES: No acute fracture is present. No bony destructive lesion is seen. JOINTS: No dislocation present. Moderate to severe degenerative changes of the glenohumeral joint wi th inferior spurring. Mild degenerative changes of the AC joint. SOFT TISSUE: Calcification adjacent to greater tuberosity could indicate calcific tendinosis. IMPRESSION: Moderate to severe degenerative changes of the glenohumeral joint. DATA REPOSITORY: RADIATION DOSE DELIVERED:
== END ==
PROVIDERS: PCP Nurse Practitioner Family; Visit Provider Nurse Practitioner Family
DX: M19.011 Primary osteoarthritis, right shoulder (principal); M77.31 Calcaneal spur, right foot; M77.32 Calcaneal spur, left foot; M79.672 Pain in left foot; M79.671 Pain in right foot
CPT/HCPCS: 73030; 73610; 73630

== ENCOUNTER 2023-09-03 13:53 | Outpatient (REF) | payer BC, SELFPAY ==
[2023-09-03 19:17] LABS: ALT 39 U/L (16-63); AST 22 U/L (15-37); Albumin 3.9 g/dL (3.4-5.0); Alkaline Phosphatase 153 U/L (46-116); Anion Gap 8.7 mmol/L (3-11); BUN 13 mg/dL (7-18); Bilirubin, Total 0.8 mg/dL (0.2-1.0); CO2 31.3 mmol/L (21.0-32.0); CREATININE 0.8 mg/dL (0.70-1.30); Calcium 9.2 mg/dL (8.5-10.1); Calculated LDL 119 mg/dL (<100); Chloride 100 mmol/L (98-107); Cholesterol 179 mg/dL (<200); Estimated GFR 105.82 (mL/min/1.73m2); Glucose 125 mg/dL (74-106); HDL Cholesterol 48 mg/dL (40-60); Potassium 4.3 mmol/L (3.5-5.1); Sodium 140 mmol/L (136-145); Total Protein 7.2 g/dL (6.4-8.2); Triglyceride 60 mg/dL (<150)
[2023-09-03 19:24] LABS: Hemoglobin A1C 8.3 % (<5.7)
== END 2023-09-03 13:54 | disposition home or self-care (01) ==
LOC: NCHCN 13:53
PROVIDERS: PCP Nurse Practitioner Family; Visit Provider Nurse Practitioner Family
DX: C25.9 Malignant neoplasm of pancreas, unspecified (principal); E11.9 Type 2 diabetes mellitus without complications
CPT/HCPCS: 80053; 80061; 83036

== ENCOUNTER 2024-01-01 01:11 | Outpatient (CLI) | payer BC, SELFPAY ==
[2024-01-01 13:09] LABS: Abs Immature Grans 0.07 10^3/uL (0.0-0.06); Absolute Eosinophil Count 0.34 10^3/uL (0.0-0.7); Absolute Lymphocyte Count 2.42 10^3/uL (1.2-3.4); Absolute Monocyte Count 0.89 10^3/uL (0.1-0.8); Basophils % 0.8; Eosinophils % 2.6; HCT 44.4 % (40.0-50.0); HGB 14.8 g/dL (13.5-17.5); Immature Grans % 0.5; Lymphocytes % 18.6; MCH 29.2 pg (27.0-33.0); MCHC 33.3 % (32.0-36.0); MCV 88 fL (80-95); MPV 9.5 fL (8.0-11.0); Monocytes % 6.8; Neutrophils % 70.7; Platelet Count 375 10^3/uL (130-400); RBC 5.06 10^6/uL (4.36-5.78); RDW 14.1 % (11.8-14.1); RDW-SD 45.2 fL; WBC 13.02 10^3/uL (4.4-10.8)
[2024-01-01 13:10] LABS: Absolute Neutrophil Count 9.21 10^3/uL (1.2-6.7)
[2024-01-01 13:38] LABS: ALT 72 U/L (16-63); AST 40 U/L (15-37); Albumin 3.6 g/dL (3.4-5.0); Alkaline Phosphatase 152 U/L (46-116); Anion Gap 5.6 mmol/L (3-11); BUN 10 mg/dL (7-18); Bilirubin, Total 0.8 mg/dL (0.2-1.0); CO2 34.4 mmol/L (21.0-32.0); CREATININE 0.8 mg/dL (0.70-1.30); Calcium 8.9 mg/dL (8.5-10.1); Chloride 100 mmol/L (98-107); Estimated GFR 105.82 (mL/min/1.73m2); Glucose 250 mg/dL (74-106); Potassium 4.1 mmol/L (3.5-5.1); Sodium 140 mmol/L (136-145); Total Protein 7.1 g/dL (6.4-8.2)
[2024-01-02 00:52] LABS: CA 19-9 <2 U/mL (<35)
== END 2024-01-01 01:12 | disposition home or self-care (01) ==
LOC: LBO 01:11
PROVIDERS: PCP Nurse Practitioner Family; Visit Provider Internal Medicine Hematology & Oncology
DX: C25.9 Malignant neoplasm of pancreas, unspecified (principal)
CPT/HCPCS: 36415; 80053; 85025; 86301

== ENCOUNTER 2024-01-27 05:11 | Outpatient (CLI) | payer BC, SELFPAY ==
[2024-01-27 12:27] LABS: Abs Immature Grans 0.07 10^3/uL (0.0-0.06); Absolute Basophil Count 0.07 10^3/uL (0.0-0.2); Absolute Lymphocyte Count 2.44 10^3/uL (1.2-3.4); Absolute Monocyte Count 0.96 10^3/uL (0.1-0.8); Basophils % 0.6 %; Eosinophils % 2.8 %; HCT 42.9 % (40.0-50.0); HGB 14.2 g/dL (13.5-17.5); Immature Grans % 0.6 %; Lymphocytes % 21.7 %; MCH 29.5 pg (27.0-33.0); MCHC 33.1 % (32.0-36.0); MCV 89 fL (80-95); MPV 9.4 fL (8.0-11.0); Monocytes % 8.5 %; Neutrophils % 65.8 %; Platelet Count 387 10^3/uL (130-400); RBC 4.81 10^6/uL (4.36-5.78); RDW-SD 45.6 fL; WBC 11.25 10^3/uL (4.4-10.8)
[2024-01-27 12:28] LABS: Absolute Eosinophil Count 0.32 10^3/uL (0.0-0.7)
[2024-01-27 12:54] LABS: ALT 68 U/L (16-63); AST 40 U/L (15-37); Albumin 3.3 g/dL (3.4-5.0); Alkaline Phosphatase 129 U/L (46-116); Anion Gap 7.8 mmol/L (3-11); BUN 12 mg/dL (7-18); Bilirubin, Total 0.7 mg/dL (0.2-1.0); CO2 32.2 mmol/L (21.0-32.0); CREATININE 0.8 mg/dL (0.70-1.30); Calcium 8.9 mg/dL (8.5-10.1); Chloride 104 mmol/L (98-107); Estimated GFR 105.82 (mL/min/1.73m2); Glucose 281 mg/dL (74-106); Potassium 4.3 mmol/L (3.5-5.1); Sodium 144 mmol/L (136-145); Total Protein 6.7 g/dL (6.4-8.2)
[2024-01-28 00:51] LABS: CA 19-9 3 U/mL (<35)
== END 2024-01-27 05:12 | disposition home or self-care (01) ==
PROVIDERS: PCP Nurse Practitioner Family; Visit Provider Internal Medicine Hematology & Oncology
DX: C25.0 Malignant neoplasm of head of pancreas (principal)
CPT/HCPCS: 36415; 80053; 85025; 86301

== ENCOUNTER → 2024-04-04 02:35 | Outpatient (CLI) | payer BC, SELFPAY ==
[2024-04-04] MEDS: Barium Sulfate 2% W/V-Berry Smoothie 450 ML BTL PO ×2 (12:35→12:36)
[2024-04-04 12:48] LABS: Abs Immature Grans 0.07 10^3/uL (0.0-0.06); Absolute Basophil Count 0.08 10^3/uL (0.0-0.2); Absolute Lymphocyte Count 2.22 10^3/uL (1.2-3.4); Basophils % 0.6 %; Eosinophils % 2.9 %; HCT 44.3 % (40.0-50.0); HGB 14.7 g/dL (13.5-17.5); Immature Grans % 0.6 %; Lymphocytes % 17.7 %; MCH 29.3 pg (27.0-33.0); MCHC 33.2 % (32.0-36.0); MCV 88 fL (80-95); MPV 9.4 fL (8.0-11.0); Monocytes % 9.2 %; Platelet Count 406 10^3/uL (130-400); RBC 5.02 10^6/uL (4.36-5.78); RDW 14.1 % (11.8-14.1); RDW-SD 45.1 fL; WBC 12.55 10^3/uL (4.4-10.8)
[2024-04-04 12:49] LABS: Absolute Eosinophil Count 0.36 10^3/uL (0.0-0.7); Absolute Monocyte Count 1.15 10^3/uL (0.1-0.8); Absolute Neutrophil Count 8.66 10^3/uL (1.2-6.7)
[2024-04-04 13:02] LABS: ALT 75 U/L (16-63); AST 53 U/L (15-37); Albumin 3.5 g/dL (3.4-5.0); Alkaline Phosphatase 104 U/L (46-116); Anion Gap 7.3 mmol/L (3-11); BUN 12 mg/dL (7-18); Bilirubin, Total 0.74 mg/dL (0.2-1.0); CO2 31.7 mmol/L (21.0-32.0); CREATININE 0.8 mg/dL (0.70-1.30); Calcium 9.1 mg/dL (8.5-10.1); Chloride 102 mmol/L (98-107); Estimated GFR 105.82 (mL/min/1.73m2); Glucose 152 mg/dL (74-106); Potassium 3.8 mmol/L (3.5-5.1); Sodium 141 mmol/L (136-145); Total Protein 7.1 g/dL (6.4-8.2)
[2024-04-04] MEDS: Omnipaque 350 MG/ML 100 ML BTL IJ (14:01)
[2024-04-04] MEDS: Normal Saline - Diluent 50 ML VIAL IJ (14:02)
--- NOTE | 2024-04-04 14:10 | DI.CT_ITS ---
Exam(s) CT CHEST/ABD/PEL W EXAM: CT CHEST/ABD/PEL W CLINICAL HISTORY: C25.1 Malignant neoplasm of body of pancreas. TECHNIQUE: Imaging Protocol: Axial computed tomography images with coronal and sagittal reformatted images were created and reviewed CONTRAST MATERIAL: Intravenous: Omnipaque 350 Contrast volume:100 ml Oral: yes / COMPARISON: CT CT CHEST/ABD/PEL WO from 12/09/[address] LUMBAR SPINE RECONS from 11/19/[address] ABDOMEN PELVIS WO from 11/19/[address] CHEST/ABD/PEL W from 04/02/[address] ABD/PELVIS W CONTRAST from 10/05/[address] CHEST W CONTRAST from 10/05/2023 FINDINGS: CHEST: Tracheobronchial tree: Patent. Pulmonary parenchyma: No consolidation or dominant measurable mass. Pleura: No effusion or pneumothorax. Mediastinum: Within normal limits. Aorta: Thoracic portion non-dilated. Pulmonary arteries: No visible emboli. Heart: No pericardial effusion. Normal size. Coronary artery calcifications and/or stents. Bones: Unremarkable for age. No lytic or blastic lesions.No compression fractures. Soft tissues: Unremarkable. ABDOMEN and PELVIS: Liver: Enlarged. Fatty infiltration. New area of decreased attenuation seen in the posterior right lobe of the liver. As a somewhat geographic appearance and extends from superior to the inferior tip of the liver. Findings could represent geographic fatty infiltration, asymmetric perfusion versus i nfiltrative mass. Gallbladder and biliary tract: Status post cholecystectomy. No biliary dilatation. Pancreas: Status post subtotal splenectomy with a small residual portion of the head remaining. Surg ical clips in the vicinity. No recurrence mass. Stable small adjacent lymph nodes. Spleen: Normal. Kidneys: Normal size, contour and axis. No radiodense stones. No obstructive uropathy. No suspicious masses seen. Adrenal glands: No masses seen. Aorta: Abdominal portion non-dilated. Lymph nodes: Within normal limits. Soft tissues: Unremarkable. Bladder: Unremarkable. Bowel: No obstruction or bowel wall thickening. Moderate quantity of stool. Appendix not seen. Peritoneal cavity: No ascites. No focal collection. No mesenteric inflammatory response. No free ai r. Bones: Unremarkable for age. Reproductive organs: Within normal limits. IMPRESSION: No acute abnormality in the chest. Large area of decreased attenuation in the posterior right lobe of the liver extending from dome to i nferior margin. The findings could represent geographic fatty infiltration versus perfusion abnormal ity. Infiltrative mass not excluded. No evidence of metastatic disease elsewhere. No recurrent pa ncreatic mass or adenopathy. RADIATION DOSE DELIVERED: Total DLP DATA REPOSITORY: All CT scans at this facility are submitted to the National Radiology Data Registry (NRDR) Dose Index Registry (DIR) with the [employer] (A[employer]). RADIATION OPTIMIZATION: All CT scans at this facility use at least one of these dose optimization te chniques: automated exposure control; mA and/or kV adjustment per patient size (includes targeted exa ms where dose is matched to clinical indication); or iterative reconstruction.
[2024-04-04 23:08] LABS: CA 19-9 3 U/mL (<35)
== END ==
PROVIDERS: PCP Nurse Practitioner Family; Visit Provider Nurse Practitioner Family
DX: C25.1 Malignant neoplasm of body of pancreas (principal)
CPT/HCPCS: 74177; 80053; 71260; 85025; 86301; J3490

== ENCOUNTER 2024-04-13 11:42 | Emergency (ER) | payer BC, SELFPAY ==
[2024-04-13 11:47] VITALS: BP 144/90; PULSE 85; RESP 16; TEMP 36.3; O2SAT 96
[2024-04-13] MEDS: Ketorolac 15 MG/ML VIAL IM (13:25)
[2024-04-13] MEDS: Dexamethasone 10 MG/ML VIAL PO (13:25)
[2024-04-13] MEDS: Cyclobenzaprine 10 MG TAB PO (13:25)
--- NOTE | 2024-04-13 14:26 | W.ED.GENAD ---
Discharge Plan Disposition Patient Disposition: Home Condition: Improving Discharge Details Clinical Impression: Torticollis Primary Care Provider: KANE LOMELI ED Provider: Patrick Nixon Home Meds and New Rx's Prescriptions: New cyclobenzaprine 5 mg tablet 5 mg PO QHS PRN (Reason: muscle spasm) Qty: 7 0RF No Action (DME) ReliOn Prime Test Strips Strip See Rx Instructions .ROUTE .MEDSUPPLY Qty: 100 12RF Rx Instructions: to test BS 6 x's daily, on insulin E 11.9 for fluctuating blood sugars, goal AIC <7.0 (DME) lancets [ReliOn Ultra Thin Plus Lancets] Misc See Rx Instructions .ROUTE .MEDSUPPLY Qty: 200 12RF Rx Instructions: to test BS 6 x's daily, on insulin E 11.9 for fluctuating blood sugars, goal AIC <7.0 hydrochlorothiazide 25 mg tablet 25 mg PO DAILY Qty: 90 3RF lisinopril 40 mg tablet 40 mg PO DAILY Qty: 90 3RF cholecalciferol (vitamin D3) 1,000 unit capsule 1,000 unit PO DAILY Creon 36,000-114,000- 180,000 unit capsule,delayed release(DR/EC) 1 cap PO TID Rx Instructions: administer with meals and/or snacks ibuprofen 600 mg tablet 600 mg PO Q6H PRN (DME) pen needle, diabetic [Lite Touch Insulin Pen [place]] 31 gauge x 3/16 needle See Rx Instructions .ROUTE .MEDSUPPLY Qty: 100 12RF Rx Instructions: to administer insulin tid E 11.9 goal AIC <7.0 to fit Novalog pens directed famotidine 20 mg tablet 20 mg PO DAILY insulin lispro [Humalog KwikPen Insulin] 100 unit/mL insulin pen 1 sliding scale dose SC TID MDD 20 units Qty: 75 3RF Rx Instructions: BS 140-159, 1 unit; 160-179, 2 units; 180-199, 3 units, 200-219 4 units, 220-239, 5 units, 240-259 6 units, 260-279 7 units, 280-299 8 units, >300 9 units and call office insulin degludec [Tresiba FlexTouch U-200] 200 unit/mL (3 mL) insulin pen 160 unit subcut DAILY rosuvastatin 20 mg tablet 20 mg PO DAILY aspirin 81 mg Capsule 81 mg PO DAILY Discharge Instructions Instructions: Torticollis (DC) Additional Instructions: Please continue with ice, heat, anti-inflammatory medication and rest. Return to the emergency department for any worsening symptoms HPI General Date/Time Provider Initiated Documentation: 04/13/24 11:57. HPI Narrative: 53-year-old male presents with bilateral paraspinal/lateral neck discomfort and decreased mobility over the last 4 days; denies fevers chills nausea vomiting headache weakness numbness or other systemic signs of illness Related Data Home Medications ?Medication ?Instructions ?Recorded ?Confirmed cholecalciferol (vitamin D3) 25 1,000 unit PO DAILY 08/10/19 04/13/24 mcg (1,000 unit) capsule blood sugar diagnostic (ReliOn #100 ea 09/09/19 11/18/23 Prime Test Strips) lancets (ReliOn Ultra Thin Plus #200 ea 09/09/19 11/18/23 Lancets) ibuprofen 600 mg tablet 600 mg PO Q6H PRN 05/10/20 04/13/24 [id number] 1 cap PO TID 05/10/20 04/13/24 36,000-114,000-180,000 unit capsule,delay rel (Creon) pen needle, diabetic 31 gauge x #100 ea 02/05/21 11/18/2312/04 (Lite Touch Insulin Pen [place]) famotidine 20 mg tablet 20 mg PO DAILY 05/12/22 04/13/24 insulin lispro 100 unit/mL 1 sliding scale dose subcut TID 08/01/22 04/13/24 subcutaneous pen (Humalog KwdouglasPen #75 mL (U-100) Insulin) hydrochlorothiazide 25 mg tablet 25 mg PO DAILY #90 tabs 09/01/22 04/13/24 lisinopril 40 mg tablet 40 mg PO DAILY #90 tabs 09/01/22 04/13/24 aspirin 81 mg capsule 81 mg PO DAILY 12/11/22 04/13/24 cyclobenzaprine 5 mg tablet 5 mg PO QHS PRN muscle spasm #7 04/13/24 tabs insulin degludec 200 unit/mL (3 160 unit subcut DAILY 04/13/24 04/13/24 mL) subcutaneous pen (Tresiba FlexTouch U-200 insulin) rosuvastatin 20 mg tablet 20 mg PO DAILY 04/13/24 04/13/24 Previous Rx's ?Medication ?Instructions ?Recorded blood sugar diagnostic (ReliOn #100 ea 09/09/19 Prime Test Strips) lancets (ReliOn Ultra Thin Plus #200 ea 09/09/19 Lancets) pen needle, diabetic 31 gauge x #100 ea 02/05/2112/04 (Lite Touch Insulin Pen [place]) insulin lispro 100 unit/mL 1 sliding scale dose subcut TID 08/01/22 subcutaneous pen (Humalog KwikPen #75 mL (U-100) Insulin) hydrochlorothiazide 25 mg tablet 25 mg PO DAILY #90 tabs 09/01/22 lisinopril 40 mg tablet 40 mg PO DAILY #90 tabs 09/01/22 cyclobenzaprine 5 mg tablet 5 mg PO QHS PRN muscle spasm #7 04/13/24 tabs Allergies Allergy/AdvReac Type Severity Reaction Status Date / Time oxycodone (From Percocet) Allergy Intermediate itch Verified 04/13/24 12:37 adhesive tape Allergy Skin Rash Verified 04/13/24 12:37 General Stated Complaint: Orthopedic SEBASTIEN: 3 Exam Narrative Exam Narrative: Alert interactive no acute distress No midline spinal tenderness step-off crepitus or deformity Point tenderness over bilateral trapezius without skin changes 5-5 strength upper and lower extremities bilaterally cranial nerves intact, ambulatory without ataxia, normal speech Course Vital Signs Vital signs: Vital Signs Temperature 36.3 C L 04/13/24 11:47 Pulse 85 04/13/24 11:47 Respiratory Rate 16 04/13/24 11:47 Blood Pressure 144/90 H 04/13/24 11:47 Pulse Oximetry 96 04/13/24 11:47 Temperature 36.3 C L 04/13/24 11:47 Temperature Source Temporal Artery Scan 04/13/24 11:47 Pulse 85 04/13/24 11:47 Respiratory Rate 16 04/13/24 11:47 Respiratory Effort Normal 04/13/24 12:40 Blood Pressure 144/90 H 04/13/24 11:47 Blood Pressure Position Sitting 04/13/24 11:47 Pulse Oximetry 96 04/13/24 11:47 Oxygen Delivery Method Room Air 04/13/24 11:47 Oxygen Flow Rate 0 04/13/24 11:47 Pain Level 5 04/13/24 13:25 Comment increases to 10/10 with movement 04/13/24 11:47 Medical Decision Making 53-year-old male presents with 4 days of atraumatic neck discomfort bilateral trapezius tenderness on palpation no midline spinal tenderness, afebrile nontoxic nonmeningeal no associated headache fevers chills nausea vomiting or other systemic signs of illness no weakness or numbness, cranial nerves intact 5-5 strength upper and lower extremities, no ataxia, likely torticollis versus muscle spasm versus cervical radiculopathy low suspicion for cervical cord injury spinal epidural abscess malignancy or spinal epidural hematoma given history and physical. Trial of analgesia anti-inflammatory. Close reassessment. 15: 06 patient feeling much better after medication. Home care instructions return precautions given. Quality:SDOH Health Related Social Needs: No Data to Display PFSH All Active Problems (Updated 04/13/24 @ 15:07 by Patrick Nixon MD) Torticollis (Acute) Pain in left ankle (Acute) Insertional Achilles tendinopathy (Acute) Traumatic degenerative joint disease of left ankle (Acute) Degenerative joint disease, ankle, left (Acute) Arthritis of left glenohumeral joint (Acute) Cervical radiculopathy (Acute) Urinary urgency (Acute) IgM deficiency (Acute) Asthma (Chronic) PTSD (post-traumatic stress disorder) (Chronic) Insomnia (Chronic) Benign prostatic hyperplasia with lower urinary tract symptoms (Chronic) Hyperlipidemia (Chronic) Dysthymic disorder (Chronic) Allergic rhinitis (Chronic) Major depressive disorder (Chronic) Generalized anxiety disorder (Chronic) Essential hypertension (Chronic) History of pancreatic cancer (Chronic ~2019) S/p chemoradiation, partial pancreactectomy, splenectomy. Followed by [facility] [place] Asplenia (Chronic) Osteoarthritis (Chronic) Vitamin D deficiency (Chronic) Hidradenitis suppurativa (Chronic) Chronic sinusitis (Chronic) Carpal tunnel syndrome on left (Chronic) Type 2 diabetes mellitus with diabetic neuropathy (Chronic) Chronic cough (Acute) Personal history of nicotine dependence (Acute) Encounter for screening for COVID-19 (Acute) Pulmonary aspergillosis (Acute) Left arm pain (Acute) Left arm numbness (Acute) Medical History Hypertension Type 2 diabetes mellitus Malignant neoplasm of body of pancreas Acute anxiety Asthma, chronic BPH w urinary obs/LUTS Cannabis abuse History of dysthymic disorder Aneurysm artery, iliac Fatigue Intermittent explosive disorder Back pain Chest congestion Daytime hypersomnia Hypomagnesemia Radiculopathy affecting upper extremity Increased sputum production Candidiasis of mouth Physical deconditioning Neuropathy Pain, joint, knee, right Type 1 diabetes mellitus Alcohol abuse Erectile dysfunction Pilonidal cyst Adenocarcinoma of pancreas (~2018) S/p chemoradiation, partial pancreactectomy, splenectomy AAA (abdominal aortic aneurysm) S/p repair Surgical History History of adenoidectomy History of surgery right forearm tendon repair S/P surgical removal of pilonidal cyst S/P cholecystectomy (05/08/20) S/P splenectomy (05/08/20) History of partial pancreatectomy (05/08/20) Partial Port Portal vein resection History of vasectomy History of appendectomy (~2013) History of tonsillectomy (~1978) S/P hernia repair (~1991) S/P AAA repair (~2016) Family History Mother , 41 Breast cancer BRCA Hypertension Depression Father Depression Heart disease Hyperlipidemia Hypertension Sister Depression Hypertension Fallopian tube carcinoma Daughter Depression Maternal Grandfather Hypertension Hyperlipidemia Heart disease Maternal Grandmother Heart disease Stroke Hypertension Hyperlipidemia Paternal Grandfather Heart disease Hypertension Hyperlipidemia Paternal Grandmother Colon cancer Diabetes Heart disease Stroke Hypertension Hyperlipidemia Social History Smoking/Tobacco Use Status: Former Tobacco Use tobacco type: cigarettes Quit Date: 04/21/14 Pack-years: 56 Tobacco: How many years used: 30 Second Hand Exposure: Yes Smoking risk assessment performed?: Yes Alcohol Intake: former Drug use: Daily Substance use type: marijuana Details: No IV Drug Use Adopted: No Caregiver/Support person: No Foster care: No Household members: spouse Housing: house Number of Children: 1 Communication Needs: None Do you need help understanding health information?: Never current occupation: Unemployed Pets and animals: Yes Sexually active: No Do you think of yourself as: straight/heterosexual Current gender identity: male What is your relationship status?: How often do you talk on the phone with friends or family?: never How often do you get together with friends or relatives?: never Do you belong to any clubs or organized social groups?: no Panel score (0-1 are the most socially isolated patients): 1 What type of physical activity do you participate in: walking Duration: 30-45 minutes/day Frequency: 3-4 times per week Shyla/Restoration: No preference Special shyla needs: No Seatbelt use: always Helmet use: No Drive intox or ride w/intox explosives truck driver: No Working smoke detector in home: Yes Fire extinguisher in home: Yes Carbon monox detector in home: Yes Do you feel safe at home: Yes Do you feel safe in your relationship?: Yes
[2024-04-13 15:29] VITALS: BP 146/89; PULSE 77; TEMP 36.3; O2SAT 95
== END 2024-04-13 15:31 | disposition home or self-care (01) ==
PROVIDERS: Emergency Provider Emergency Medicine; PCP Nurse Practitioner Family
DX: M43.6 Torticollis (principal)
CPT/HCPCS: 96372; 99284; 99283; J1100; J1885

== ENCOUNTER 2024-05-19 02:42 | Outpatient (CLI) | payer BC, SELFPAY ==
--- NOTE | 2024-05-19 | DI.MRI_ITS ---
Exam(s) MR ABDOMEN WO/W EXAM: MR ABDOMEN WO/W CLINICAL HISTORY: CANCER OF PANCREAS, C25.1, ABN CT OF THE ABD R93.5 TECHNIQUE: Multiplanar multisequence MRI of the Abdomen was performed. MRCP sequences also performe d. CONTRAST MATERIAL: IV Contrast: 20 mL of Dotarem contrast administered. COMPARISON: CT CT CHEST/ABD/PEL W from 04/04/2024 FINDINGS: Exam limited by motion. MRCP sequences are quite limited by motion. Liver: There is a wedge-shaped area of mildly increased signal in the posterior aspect of the right l obe of the liver. Show signal dropout on opposed phase imaging, consistent with geographic fatty inf iltration. No suspicious enhancement a simple cyst is noted inferomedially. Pancreas: status post resection of the majority of the pancreas with residual portion pancreatic hea d. Gallbladder and Bile Ducts: Status post cholecystectomy. No biliary dilatation. Adrenals: Unremarkable. Kidneys: Unremarkable. Spleen: Status post splenectomy. Aorta: Unremarkable. Soft Tissues: Unremarkable. Bone: Unremarkable. Lymph Nodes: Unremarkable. IMPRESSION: Liver findings consistent with geographic fatty infiltration in the posterior aspect of the liver. No evidence of suspicious mass. DATA REPOSITORY:
[2024-05-19 07:54] LABS: Abs Immature Grans 0.05 10^3/uL (0.0-0.06); Absolute Basophil Count 0.12 10^3/uL (0.0-0.2); Absolute Lymphocyte Count 2.81 10^3/uL (1.2-3.4); Absolute Monocyte Count 1.16 10^3/uL (0.1-0.8); Absolute Neutrophil Count 7.37 10^3/uL (1.2-6.7); Eosinophils % 3.8 %; HCT 47.3 % (40.0-50.0); HGB 15.4 g/dL (13.5-17.5); Immature Grans % 0.4 %; Lymphocytes % 23.5 %; MCH 29.7 pg (27.0-33.0); MCHC 32.6 % (32.0-36.0); MCV 91 fL (80-95); MPV 9.2 fL (8.0-11.0); Monocytes % 9.7 %; Neutrophils % 61.6 %; Platelet Count 422 10^3/uL (130-400); RBC 5.19 10^6/uL (4.36-5.78); WBC 11.97 10^3/uL (4.4-10.8)
[2024-05-19 07:55] LABS: Absolute Eosinophil Count 0.45 10^3/uL (0.0-0.7)
[2024-05-19] MEDS: Normal Saline - Diluent 50 ML VIAL IJ (08:05)
[2024-05-19 08:53] LABS: ALT 56 U/L (16-63); AST 40 U/L (15-37); Albumin 3.5 g/dL (3.4-5.0); Alkaline Phosphatase 119 U/L (46-116); Anion Gap 7.9 mmol/L (3-11); BUN 11 mg/dL (7-18); CO2 31.1 mmol/L (21.0-32.0); CREATININE 0.9 mg/dL (0.70-1.30); Calcium 9.6 mg/dL (8.5-10.1); Chloride 102 mmol/L (98-107); Estimated GFR 102.12 (mL/min/1.73m2); Glucose 197 mg/dL (74-106); Potassium 3.8 mmol/L (3.5-5.1); Sodium 141 mmol/L (136-145); Total Protein 7.5 g/dL (6.4-8.2)
[2024-05-20 09:06] LABS: CA 19-9 10 U/mL (<35)
== END 2024-05-19 03:02 ==
PROVIDERS: PCP Nurse Practitioner Family; Visit Provider Nurse Practitioner Family
DX: C25.1 Malignant neoplasm of body of pancreas (principal); R93.5 Abnormal findings on diagnostic imaging of other abdominal regions, including retroperitoneum; K76.0 Fatty (change of) liver, not elsewhere classified
CPT/HCPCS: 74183; 80053; 85025; 86301

== ENCOUNTER 2024-11-11 00:25 | Outpatient (CLI) | payer BC, SELFPAY ==
--- NOTE | 2024-11-11 | DI.CT_ITS ---
Exam(s) CT CHEST/ABD/PEL W EXAM: CT CHEST/ABD/PEL W CLINICAL HISTORY: PANCREATIC CANCER C25.1 SURVEILLANCE, S/P WHIPPLE. TECHNIQUE: Imaging Protocol: Axial computed tomography images with coronal and sagittal reformatted images were created and reviewed CONTRAST MATERIAL: Intravenous: Omnipaque 350 Contrast volume:100 ml Oral: Yes. Oral contrast was also administered for bowel opacification COMPARISON: CT CT CHEST/ABD/PEL W from 11/07/[address] CHEST/ABD/PEL W from 04/04/2024 FINDINGS: CHEST: LUNGS: There are 2 small unchanged nodules in the left lower lobe measuring 2-3 mm and there is also a single similar size unchanged nodule in the right lung right upper lobe. There are no new ominous lung nodules. Some platelike atelectasis in the lingular segment of the left lung is again noted. T here are no pleural effusions.. There are no significant focal findings in trachea and mainstem bron chi. No bronchiectasis. MEDIASTINUM: There is no hilar nor mediastinal adenopathy. Partially visualized thyroid appears unrem arkable. CARDIAC: Heart size is normal. There is no pericardial effusion.Caliber of the thoracic aorta is wit hin normal limits. OSSEOUS: No significant osseous lesions.No fractures.. ABDOMEN: Again noted is evidence of subtotal pancreatectomy and splenectomy and cholecystectomy. There is no new abnormal tissue nor adenopathy in the surgical bed region and there are no abnormal fluid collect ions. Superior mesenteric vein and portal vein are patent. LIVER: Liver is hypodense implying steatosis. Also again noted is an area of abnormal hypodensity in the right hepatic lobe superimposed upon the steatosis and this appears somewhat more pronounced amanda n previous. There is also a small 4 millimeter calcification in the inferior aspect of the right hep atic lobe again noted. GALLBLADDER/BILIARY: Gallbladder is again noted to be surgically absent. CBD is not dilated. PANCREAS: The remaining part of the pancreatic head and uncinate process appear unremarkable. No new abnormal tissue in the surgical bed of the resected pancreatic neck, body, and tail nor at the splen ic resection site. SPLEEN: Surgically absent. No abnormal tissue in this region. ADRENALS: There are no significant adrenal masses. KIDNEYS: No calculi nor hydronephrosis. No solid renal masses. No cysts evident. ABDOMINAL AORTA: Atherosclerotic. There is mild fusiform infrarenal abdominal aortic aneurysm maximu m diameter 2.5 cm. There is also arterial megaly in both common iliac arteries. Maximum diameter of the left common iliac artery is 2 cm. Maximum diameter of the right common iliac artery is also 2 c m. LYMPH NODES: There is no retroperitoneal nor paraaortic adenopathy. ABDOMINAL WALL: No evidence of significant anterior abdominal wall nor inguinal hernia. GI: There is interposition of colon between the right hepatic lobe and right abdominal wall. There a re filling defects in the right-side of the colon both above and below the ileocecal valve. These ar eas are devoid of oral contrast. This may just be related to non-opacified fecal material at this le jeanette. The oral contrast has reached the mid transverse colon at the time of image acquisition. The appendix appears to be surgically absent. PELVIS: LYMPH NODES: There is no intrapelvic nor inguinal adenopathy. GI: Appendix is surgically absent.There is no significant sigmoid diverticular disease. URINARY BLADDER: No calculi nor masses evident REPRODUCTIVE: Prostate size upper normal. Seminal vesicles unremarkable. OSSEOUS: No significant osseous lesions. No fractures. IMPRESSION: 1. Compared to prior CT scan March 2024 there is again noted evidence of subtotal pancreatectomy, sple nectomy, cholecystectomy, and appendectomy. 2. There is no evidence of new metastatic disease in the chest. Two small left lung nodules measurin g 2-3 mm and a single similar size nodule in the right lung remain unchanged from prior CT scans. Th ere are no metastatic appearing nodules and there are no pleural effusions nor significant intrathora cic adenopathy. 3. There is no abnormal tissue nor regional lymphadenopathy in the surgical bed of the pancreas-splee n resection, and the remaining part of the pancreatic head and uncinate process appear unremarkable. The CBD is not dilated. 4. There is atherosclerotic involvement of the abdominal aorta and iliac arteries. There is mild fus iform aneurysmal dilatation of the inferior abdominal aorta. Although the maximum diameter of the ab dominal aorta is only 2.5 cm, this is slightly larger than the abdominal aorta above this level. In addition, there are significant aneurysms of both common iliac arteries, both exhibiting diameters of 2 cm. There filling defects in the ascending colon both in the cecum and just above the ileocecal valve. T here is possibly that this just represents lack of oral contrast in concentrated fecal material at th is level. However, recommend follow-up colonoscopy if one has not been performed recently. RADIATION DOSE DELIVERED: 1,228.31mGy.cm Total DLP DATA REPOSITORY: All CT scans at this facility are submitted to the National Radiology Data Registry (NRDR) Dose Index Registry (DIR) with the [employer] ([employer]). RADIATION OPTIMIZATION: All CT scans at this facility use at least one of these dose optimization te chniques: automated exposure control; mA and/or kV adjustment per patient size (includes targeted exa ms where dose is matched to clinical indication); or iterative reconstruction.
[2024-11-11] MEDS: Barium Sulfate 2% W/V-Berry Smoothie 450 ML BTL PO ×2 (11:59→12:00)
[2024-11-11 12:17] LABS: Abs Immature Grans 0.05 10^3/uL (0.0-0.06); Absolute Basophil Count 0.07 10^3/uL (0.0-0.2); Absolute Eosinophil Count 0.27 10^3/uL (0.0-0.7); Absolute Lymphocyte Count 2.28 10^3/uL (1.2-3.4); Absolute Monocyte Count 0.92 10^3/uL (0.1-0.8); Absolute Neutrophil Count 9.69 10^3/uL (1.2-6.7); Basophils % 0.5 %; HCT 45.1 % (40.0-50.0); HGB 14.8 g/dL (13.5-17.5); Immature Grans % 0.4 %; Lymphocytes % 17.2 %; MCH 29.3 pg (27.0-33.0); MCHC 32.8 % (32.0-36.0); MCV 89 fL (80-95); MPV 9.3 fL (8.0-11.0); Monocytes % 6.9 %; Platelet Count 383 10^3/uL (130-400); RBC 5.05 10^6/uL (4.36-5.78); RDW-SD 48.9 fL; WBC 13.28 10^3/uL (4.4-10.8)
[2024-11-11 12:40] LABS: ALT 60 U/L (16-63); AST 42 U/L (15-37); Albumin 3.9 g/dL (3.4-5.0); Alkaline Phosphatase 106 U/L (46-116); Anion Gap 6.3 mmol/L (3-11); BUN 10 mg/dL (7-18); Bilirubin, Total 0.82 mg/dL (0.2-1.0); CO2 32.7 mmol/L (21.0-32.0); Calcium 9.8 mg/dL (8.5-10.1); Chloride 102 mmol/L (98-107); Estimated GFR 89.44 (mL/min/1.73m2); Glucose 199 mg/dL (74-106); Potassium 4.2 mmol/L (3.5-5.1); Sodium 141 mmol/L (136-145); Total Protein 7.5 g/dL (6.4-8.2)
[2024-11-11] MEDS: Normal Saline - Diluent 50 ML VIAL IJ (14:00)
[2024-11-11] MEDS: Omnipaque 350 MG/ML 100 ML BTL IJ (14:02)
[2024-11-11 22:59] LABS: CA 19-9 <2 U/mL (<35)
== END 2024-11-11 00:45 ==
LOC: DI 00:25
PROVIDERS: PCP Nurse Practitioner Family; Visit Provider Nurse Practitioner Family
DX: C25.1 Malignant neoplasm of body of pancreas (principal); I72.3 Aneurysm of iliac artery
CPT/HCPCS: 74177; 80053; 71260; 85025; 86301; J3490

== ENCOUNTER 2024-12-30 12:10 | Day surgery (SDC) | payer BC, SELFPAY ==
[2024-12-30 12:25] VITALS: BP 121/89; PULSE 89; RESP 16; TEMP 36.5; O2SAT 94
--- NOTE | 2024-12-30 12:34 | ANES.PREOP_ITS ---
General Info Date of Service Date Performed: 12/30/24 Height: 5 ft 11 in Weight: 104.3 kg Body Mass Index (BMI): 32.1 Surgical Procedure: Operation Date: 12/30/24 12:05 Proposed Procedure Side Surgeon donis KEENAN MD Meds Allergies and Home Medications Allergies Allergy/AdvReac Type Severity Reaction Status Date / Time oxycodone (From Percocet) Allergy Intermediate itch Verified 12/30/24 12:22 adhesive tape Allergy Skin Rash Verified 12/30/24 12:22 Home Medication ?Medication ?Instructions ?Recorded cholecalciferol (vitamin D3) 25 1,000 unit PO DAILY 08/10/19 mcg (1,000 unit) capsule blood sugar diagnostic (ReliOn #100 ea 09/09/19 Prime Test Strips) lancets (ReliOn Ultra Thin Plus #200 ea 09/09/19 Lancets) ibuprofen 600 mg tablet 600 mg PO Q6H PRN 05/10/20 nvlrlt-[id number]-igltgwx 1 cap PO TID 05/10/20 36,000-114,000-180,000 unit capsule,delay rel (Creon) pen needle, diabetic 31 gauge x #100 ea 02/05/2112/04 (Lite Touch Insulin Pen Marathon) famotidine 20 mg tablet 20 mg PO DAILY 05/12/22 hydrochlorothiazide 25 mg tablet 25 mg PO DAILY #90 tabs 09/01/22 lisinopril 40 mg tablet 40 mg PO DAILY #90 tabs 09/01/22 aspirin 81 mg capsule 81 mg PO DAILY 12/11/22 cyclobenzaprine 5 mg tablet 5 mg PO QHS PRN muscle spasm #7 04/13/24 tabs insulin degludec 200 unit/mL (3 160 unit subcut DAILY 04/13/24 mL) subcutaneous pen (Tresiba FlexTouch U-200 insulin) rosuvastatin 20 mg tablet 20 mg PO DAILY 04/13/24 bisacodyl 5 mg tablet,delayed 5 mg PO ONCE Colonoscopy Bowel 12/20/24 release Prep #4 tabs polyethylene glycol 3350 17 238 g PO ONCE #238 grams 12/20/24 gram/dose oral powder insulin lispro-aabc 200 unit/mL (3 1 sliding scale dose subcut 12/28/24 mL) subcutaneous pen (Lyumjev DIRECTED KwikPen U-200 Insulin) lamotrigine 150 mg tablet 150 mg PO DAILY 12/28/24 Current Visit Medications: Current Medications Generic Name Dose Route Start Last Admin Trade Name Freq PRN Reason Stop Dose Admin Ringer's Solution 1,000 mls @ 80 mls/hr 12/30/24 06:00 IV 12/30/24 23:59 INFUSION GABRIELLA IV Miscellaneous Supplies 1 each 12/30/24 06:00 Iv Access IV 12/30/24 23:59 DIRECTED GABRIELLA Sodium Chloride 0 ml 12/30/24 06:00 Normal Saline Flush 10 Ml Syr IV 12/30/24 23:59 PRN PRN Sodium Chloride 0 ml 12/30/24 06:00 Normal Saline 10 Ml Vial IJ 12/30/24 23:59 DIRECTED PRN Sterile Water 0 ml 12/30/24 06:00 Water,Injection,Sterile 10 Ml Vial IJ 12/30/24 23:59 DIRECTED PRN PFSH Active Problems Active Problems: Problem Status Onset Code Pain in left ankle Acute M25.572 Insertional Achilles tendinopathy Acute M76.60 Traumatic degenerative joint disease of left ankle Acute M19.172 Degenerative joint disease, ankle, left Acute M19.072 Arthritis of left glenohumeral joint Acute M19.012 Urinary urgency Acute R39.15 IgM deficiency Acute 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 Left arm numbness Acute R20.0 Left arm pain Acute M79.602 Cervical radiculopathy Acute M54.12 Pulmonary aspergillosis Acute B44.1 Encounter for screening for COVID-19 Acute Z11.52 Personal history of nicotine dependence Acute Z87.891 Chronic cough Acute R05.3 Type 2 diabetes mellitus with diabetic neuropathy Chronic E11.40 Carpal tunnel syndrome on left Chronic G56.02 Chronic sinusitis Chronic J32.9 Hidradenitis suppurativa Chronic L73.2 Vitamin D deficiency Chronic E55.9 Osteoarthritis Chronic M19.90 Asplenia Chronic Q89.01 History of pancreatic cancer Chronic ~2019 Z85.07 Essential hypertension Chronic I10 Generalized anxiety disorder Chronic F41.1 Major depressive disorder Chronic F32.9 Allergic rhinitis Chronic J30.9 Dysthymic disorder Chronic F34.1 Hyperlipidemia Chronic E78.5 Benign prostatic hyperplasia with lower urinary tract symptoms Chronic N40.1 Insomnia Chronic G47.00 PTSD (post-traumatic stress disorder) Chronic F43.10 Asthma Chronic J45.909 Medical History Medical History Hypertension Type 2 diabetes mellitus Malignant neoplasm of body of pancreas last chemo/radiation 2019 Acute anxiety Asthma, chronic BPH w urinary obs/LUTS Cannabis abuse History of dysthymic disorder Aneurysm artery, iliac Fatigue Intermittent explosive disorder Back pain Chest congestion Daytime hypersomnia Hypomagnesemia Radiculopathy affecting upper extremity Increased sputum production Candidiasis of mouth Physical deconditioning Neuropathy Pain, joint, knee, right Type 1 diabetes mellitus Per pt. 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, partial pancreactectomy, splenectomy AAA (abdominal aortic aneurysm) S/p repair 2017 Surgical History Surgical History History of adenoidectomy History of surgery right forearm tendon repair S/P surgical removal of pilonidal cyst S/P cholecystectomy (05/08/20) S/P splenectomy (05/08/20) History of partial pancreatectomy (05/08/20) Partial Port Portal vein resection History of vasectomy History of appendectomy (~2013) History of tonsillectomy (~1978) S/P hernia repair (~1991) S/P AAA repair (~2016) Tobacco Smoking/Tobacco Use Status: Former Tobacco Use Passive smoking exposure: Yes Second hand exposure: Yes Alcohol Alcohol Intake: current Alcohol intake frequency: holidays/special occasions only Substance Use Substance use: Daily Substance use type: marijuana Vital Signs and Lab Results Vital Signs Most Recent Vital Signs in EMR: Most Recent Vital Signs Temp Pulse Resp BP Pulse Ox 36.5 C 89 16 121/89 94 12/30/24 12:25 12/30/24 12:25 12/30/24 12:25 12/30/24 12:12/30/24 12:25 Point of Care Results Point of Care Results: Temp Pulse Resp BP Pulse Ox 36.5 C 89 16 121/89 94 12/30/24 12:25 12/30/24 12:25 12/30/24 12:25 12/30/24 12:25 12/30/24 12:25 Lab Results Blood Type / Crossmatch: No Data to Display Complete Blood Count: No Data to Display Complete Metabolic Panel: No Data to Display Liver Function Panel: No Data to Display Coagulation Panel: No Data to Display Cardiac Panel: No Data to Display Arterial Blood Gas: No Data to Display Venous Blood Gas: No Data to Display Pancreas Panel: No Data to Display Thyroid Panel: No Data to Display Infectious Disease: No Data to Display Blood Cultures: No Data to Display Toxicology Panel: No Data to Display Imaging and Studies Imaging and Studies Study information below may be from another EMR and interpreted by another provider. Please see original notes in EMR for more complete details. EKG Summary: 07/23/2021: Exam: Resting ECG Reason for Exam: heart attack? Patient Location: E HR:68 bpm ECG Measurements Heart Rate 68 AXIS RI 150 P 54 QRSd 100 QRS 66 QT 403 T27 QTc 428 Conclusion Sinus rhythm...normal P axis, V-rate 60- 99. Sinus. No STEMI. I have reviewed and interpreted ECG and agree with software generated interpretation. Pulmonary Function Summary: 12/10/2022: Pulmonary Function Test Result Requesting Provider Charo Indications: Chronic Cough Interpretation Spirometry: No airflow limitation. There was a 7% decline in FEV1% with administration of 16mg/mL methacholine. Impression Negative methacholine challenge. Clinical Correlation therefore is recommended. Anesthesia Assessment and Plan Anesthesia History Personal History: No History of Anesthesia Complications Family History: No Family History of Anesthesia Complications Exercise Tolerance Exercise Tolerance: Metabolic Equivalents<4 Pertinent Negatives Pertinent Negatives: No Major Cardiovascular Symptoms or Complaints, No Major Pulmonary Symptoms or Complaints and No History of CVA/TIA Cardiac & Pulmonary Exam Cardiac Exam: Normal S1/S2 Heart Sounds Pulmonary Exam: Clear Bilateral Breath Sounds Implantable Cardiac Device Does patient have a Pacemaker or an ICD?: No Airway Exam Known Difficult Airway: No Mallampati Class: 2 Mouth Opening: Normal (> 3cm) Thyromental Distance: Greater than 3 cm Neck Range of Motion: Full ROM Neck Circumference: Thick Teeth Condition: Generalized Poor Dentition and Edentulous (Upper, 11 teeth lower and not loose per patient) ASA Classification ASA Score: ASA 3 Emergency Case?: No NPO Status NPO Status: NPO Clears >2 hours, Solids >8 hours Anesthesia Plan Resuscitation Status: Full Code Anesthesia Technique: General Anesthesia Airway Planned: Natural Airway Monitors Used: Standard Monitors Preoperative Comments:: BS 128 per CGM
[2024-12-30] MEDS: Lactated Ringers 1,000 ML 80 ML IV (12:45)
[2024-12-30 13:10] VITALS: BMI 32.1
--- NOTE | 2024-12-30 14:17 | W.PM.OP ---
Operative Note Operative Note PRE-OP DIAGNOSIS: Abnormal finding in the ascending colon on recent CT scan POST-OP DIAGNOSIS: other (Colon polyps) PROCEDURE: Colonoscopy SURGEON: Rene CAMPUZANO ANESTHESIA TYPE: MAC Refer to Anesthesia Record PATHOLOGY: other (Descending colon polyp, rectal polyp) Findings: 2 subcentimeter polyps, no concerning findings in the ascending colon Procedure Description: After obtaining informed consent, patient was brought back to the endoscopy suite. he was turned on the left side and connected to the monitors. Timeout was performed. Propofol was administered by the nurse adobe layer. I began by performing a digital rectal exam. This was unremarkable. I inserted the colonoscope and advanced the length of the colon. I attained the cecum as identified by the appendiceal orifice and the ileocecal valve. Did not intubate the ileocecal valve. The prep was good. Cecum had a normal appearance. I withdrew along the ascending colon, transverse colon, descending colon, and sigmoid colon. In the descending colon I removed a 2 to 3 mm sessile polyp with a cold biopsy forcep. This was sent to pathology. No diverticular disease was noted. I withdrew into the rectum. Here I removed a 5 mm sessile polyp with a cold biopsy forcep. I did retroflex. This was unremarkable. I decompressed the sigmoid and the rectum and withdrew the scope entirely. Patient tolerated well. he went to recovery in stable condition. Disposition: Patient will be discharged home later today. Will call him with the pathology report. He will likely need a repeat colonoscopy in 5 to 10 years, pending pathology. No worrisome findings to correlate with CT scan images. Date of Procedure: 12/30/24
[2024-12-30 14:20] VITALS: BP 129/83; PULSE 75; RESP 16; TEMP 36.2; O2SAT 92
[2024-12-30 14:50] VITALS: BP 126/86; PULSE 58; RESP 16; TEMP 36.3; O2SAT 94
--- NOTE | 2024-12-30 14:54 | W.ANESPOSTOP ---
Postoperative Evaluation Date, Time and Location Date Performed: 12/30/24 Time Performed: 14:54 Patient Location: Day Surgery Unit Vital Signs Most Recent Imported Vital Signs: Most Recent Vital Signs Temp Pulse Resp BP Pulse Ox 36.3 C L 58 L 16 126/86 94 12/30/24 14:50 12/30/24 14:50 12/30/24 14:50 12/30/24 14:50 12/30/24 14:50 Pain Score Most Recent Pain Score: Most Recent Pain Score Pain Level 0 12/30/24 14:50 Assessment Mental Status: Awake (Alert & Oriented to Patient Baseline) Airway and Respiratory Function: Patent airway with normal (patient baseline) respiratory exam Cardiovascular Function: Hemodynamically Stable Hydration Status: Adequately Hydrated Nausea & Vomiting: No Nausea or Vomiting Pain: Pt. Denies Any Pain Peripheral Nerve Block: Patient did not receive a nerve block
== END 2024-12-30 15:07 | disposition home or self-care (01) ==
PROVIDERS: PCP Nurse Practitioner Family; Visit Provider Surgery
PROC: 0DJD8ZZ Inspection of Lower Intestinal Tract, Via Natural or Artificial Opening Endoscopic (ICD-10-PCS; CPT 45378; principal; 2024-12-30 12:00)
DX: R93.3 Abnormal findings on diagnostic imaging of other parts of digestive tract (principal); D12.4 Benign neoplasm of descending colon; K62.1 Rectal polyp
CPT/HCPCS: 45380; 88305; J2003; J2704

== ENCOUNTER 2025-05-12 01:11 | Outpatient (CLI) | payer BC, SELFPAY ==
--- NOTE | 2025-05-12 | DI.CT_ITS ---
Exam(s) CT CHEST/ABD/PEL W EXAM: CT CHEST/ABD/PEL W CLINICAL HISTORY: Malignant neoplasm of head of pancreas, C25.0, s/p Whipple procedure,. TECHNIQUE: Imaging Protocol: Axial computed tomography images with coronal and sagittal reformatted images were created and reviewed CONTRAST MATERIAL: Intravenous: Omnipaque 350 Contrast volume:100 ml Oral: Yes. Oral contrast was also administered for bowel opacification. COMPARISON: CT CT CHEST/ABD/PEL W from 11/11/2024 FINDINGS: CHEST: LUNGS: The previously described small sub cm benign-appearing bilateral lung nodules appear unchanged in size and number. There are no new metastatic appearing nodules and there are no infiltrates nor pleural effusions. There are no new findings in trachea and mainstem bronchi. MEDIASTINUM: There is no hilar nor mediastinal adenopathy. Partially visualized thyroid unremarkable. CARDIAC: Heart size is normal. There is no pericardial effusion.Caliber of the thoracic aorta is within normal limits. OSSEOUS: No fractures. No significant osseous lesions in the thorax.. ABDOMEN: Again noted is evidence of subtotal pancreatectomy, cholecystectomy, and splenectomy. The remaining uncinate process and pancreatic head remain unremarkable in appearance. There is no new abnormal tissue nor new lymphadenopathy in the surgical bed region. A portacaval lymph node is unchanged in size. There is no new mesenteric streaking nor abnormal fluid collections. No evidence of bowel obstruction, free air, nor abscess. All regional vessels are patent with no evidence of abnormal encasement. LIVER: Again noted is a previously described area of abnormal hypodensity in the right hepatic lobe superimposed upon steatosis. This there is slightly smaller in size than previous. The left hepatic lobe remains unremarkable. GALLBLADDER/BILIARY: Surgically absent. CBD is not dilated. PANCREAS: As above. Remaining part of the pancreatic head and uncinate process appear unchanged/unremarkable and there is no new abnormal tissue in the surgical bed of the resected pancreatic neck, body, and tail. SPLEEN: Again noted to be surgically absent. There is no abnormal tissue nor lymphadenopathy in the splenic bed ADRENALS: There are no significant adrenal masses. KIDNEYS: No calculi nor hydronephrosis. No solid renal masses. No cysts evident. ABDOMINAL AORTA: Again noted be atherosclerotic. Mild fusiform infrarenal abdominal aortic aneurysm with maximum diameter of 2.5 cm is unchanged. The common iliac arteries are also again noted to be prominent. Maximum diameter of both common iliac arteries is again noted to be 2 cm. There are no aneurysms evident in the internal iliac arteries nor the external iliac arteries nor in the common femoral arteries. LYMPH NODES: No new retroperitoneal nor para-aortic adenopathy. No adenopathy around the aortic bifurcation nor along the iliac chains and there is no inguinal adenopathy ABDOMINAL WALL: No evidence of significant anterior abdominal wall nor inguinal hernia. GI: There is no evidence of bowel obstruction. PELVIS: LYMPH NODES: There is no intrapelvic nor inguinal adenopathy. GI: Appendix is surgically absent.No significant sigmoid diverticular disease.Previously described finding at the level of the cecum is less evident on the present study. URINARY BLADDER: No calculi nor masses evident REPRODUCTIVE: Mildly enlarged prostate. Seminal vesicles unremarkable. OSSEOUS: No significant osseous lesions. No fractures. Incidentally noted is a gas bubble in the left side of the lumbar spinal canal at the L4-5 level, this just medial to the left facet joint at this level. This is most probably within a degenerative synovial cyst of the left facet joint at this level. This can cause similar symptomatology as a herniated disc. IMPRESSION: 1. There is again noted evidence of subtotal pancreatectomy, splenectomy, cholecystectomy, and appendectomy. 2. There is no evidence of new metastatic disease in the chest, abdomen, and pelvis.. The previously described small bilateral 3 millimeter lung nodules are unchanged. There are no new metastatic lung nodules evident. No pleural effusions nor significant intrathoracic adenopathy. 3. There is no abnormal tissue nor new regional lymphadenopathy in the surgical bed of the pancreas-spleen resection and the remaining pancreatic head and uncinate process appear unremarkable/unchanged. The CBD is not dilated. 4. Stable appearance of mild 2.5 cm infrarenal abdominal aorta and stable appearance of the bilateral common iliac artery arteriomegaly (2cm). 5. incidentally noted is a gas bubble in the left side of the lumbar spine at L4-5, this just medial to the left facet joint at this level. I suspect that this may be within a small degenerative synovial cyst on the medial aspect of the facet joints at this level. There is no suspicion for metastatic disease at this level. RADIATION DOSE DELIVERED: 1,548.97mGy.cm Total DLP DATA REPOSITORY: All CT scans at this facility are submitted to the National Radiology Data Registry (NRDR) Dose Index Registry (DIR) with the [employer] (ACR). RADIATION OPTIMIZATION: All CT scans at this facility use at least one of these dose optimization techniques: automated exposure control; mA and/or kV adjustment per patient size (includes targeted exams where dose is matched to clinical indication); or iterative reconstruction.
[2025-05-12] MEDS: Barium Sulfate 2% W/V-Berry Smoothie 450 ML BTL PO ×2 (09:02→09:03)
[2025-05-12 09:05] LABS: Abs Immature Grans 0.03 10^3/uL (0.0-0.06); HCT 45.1 % (40.0-50.0); HGB 14.9 g/dL (13.5-17.5); Immature Grans % 0.3 %; MCH 28.6 pg (27.0-33.0); MCHC 33.0 % (32.0-36.0); MCV 87 fL (80-95); MPV 9.6 fL (8.0-11.0); Platelet Count 441 10^3/uL (130-400); RBC 5.21 10^6/uL (4.36-5.78); RDW 13.8 % (11.8-14.1); RDW-SD 43.5 fL; WBC 11.05 10^3/uL (4.4-10.8)
[2025-05-12 09:24] LABS: ALT 62 U/L (16-63); AST 35 U/L (15-37); Albumin 3.5 g/dL (3.4-5.0); Alkaline Phosphatase 107 U/L (46-116); Anion Gap 6.3 mmol/L (3-11); BUN 15 mg/dL (7-18); Bilirubin, Total 0.9 mg/dL (0.2-1.0); CO2 29.7 mmol/L (21.0-32.0); Calcium 9.0 mg/dL (8.5-10.1); Chloride 104 mmol/L (98-107); Estimated GFR 105.17 (mL/min/1.73m2); Glucose 162 mg/dL (74-106); Potassium 4.3 mmol/L (3.5-5.1); Sodium 140 mmol/L (136-145); Total Protein 7.3 g/dL (6.4-8.2)
[2025-05-12] MEDS: Normal Saline Flush 10 ML SYR IVP (10:42)
[2025-05-12] MEDS: Normal Saline - Diluent 50 ML VIAL IJ (10:43)
[2025-05-12] MEDS: Omnipaque 350 MG/ML 500 ML BTL-Imaging package IJ (10:43)
[2025-05-15 17:20] LABS: CA 19-9 5 U/mL (<35)
== END 2025-05-12 01:31 ==
PROVIDERS: PCP Nurse Practitioner Family; Visit Provider Internal Medicine Hematology & Oncology
DX: C25.0 Malignant neoplasm of head of pancreas (principal); I77.811 Abdominal aortic ectasia
CPT/HCPCS: 74177; 80053; 71260; 85025; 86301

== ENCOUNTER → 2025-07-24 02:05 | Outpatient (CLI) | payer BC, SELFPAY ==
--- NOTE | 2025-07-24 | DI.MRI_ITS ---
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 TECHNIQUE: Multiplanar multisequence MRI of the Lumbar spine was performed. COMPARISON: CR XR LUMBAR SPINE AP, LAT from 10/14/2022 FINDINGS: The examination is limited due to patient motion artifact. Bones: The last intervertebral disc space is designated the L5/S1 level for the numbering purpose of this examination. The vertebral body heights are well maintained. There is a mild left convex scoliosis. There is fatty replacement seen in the T11 through L2 vertebral bodies which may reflect radiation therapy. Please correlate with patient's clinical history. Cord: It is of normal size and signal intensity. T12-L1: No disc herniations or bulges are present. No central spinal canal or neural foraminal stenosis. L1-2: No disc herniations or bulges are present. No central spinal canal or neural foraminal stenosis. L2-3: No disc herniations or bulges are present. No central spinal canal or neural foraminal stenosis. L3-4: There is a mild diffuse disc bulge. Degenerative changes of the facets and ligamentum flavum are present. There is mild narrowing of the central spinal canal. There is also mild narrowing of the neural foramen, right greater than left. L4-5: No disc herniations or bulges are present. There are degenerative changes of the facets and hypertrophy of the ligamentum flavum. Minimal narrowing of the central spinal canal is noted.No significant neural foraminal stenosis is seen. L5-S1: There is a left paracentral disc herniation. There is left lateral recess stenosis and compression of the left S1 nerve root. There are mild degenerative changes of the facets. No significant central spinal canal or right neural foraminal stenosis is seen. There is mild left neural foraminal stenosis. Soft tissues: The visualized SI joints and sacrum are well maintained. The paraspinal soft tissues are unremarkable. IMPRESSION: 1. Small left paracentral disc herniation at L5-S1 causing left lateral recess stenosis and compression of the left S1 nerve root. 2. Multilevel degenerative changes in the lumbar spine resulting in mild narrowing of the central spinal canal at L3-L4. There is also mild bilateral neural foramen at L3-4 and on the left at L5-S1. DATA REPOSITORY:
== END ==
LOC: DI 02:05
PROVIDERS: PCP Nurse Practitioner Family; Visit Provider Nurse Practitioner
DX: M47.816 Spondylosis without myelopathy or radiculopathy, lumbar region (principal); M51.27 Other intervertebral disc displacement, lumbosacral region
CPT/HCPCS: 72148

== ENCOUNTER 2025-08-15 10:31 | Outpatient (REF) | payer BC, SELFPAY ==
[2025-08-15 16:44] LABS: Microalb ug/mg Crea 3.9 ug/mg Cr
== END 2025-08-15 10:32 | disposition home or self-care (01) ==
LOC: NCHCN 10:31
PROVIDERS: PCP Nurse Practitioner Family; Visit Provider Nurse Practitioner Family
DX: E11.9 Type 2 diabetes mellitus without complications (principal); E78.5 Hyperlipidemia, unspecified
CPT/HCPCS: 82043; 82570